=== PATIENT | male | born 1940 | race Caucasian/White ===

== ENCOUNTER → 2018-04-16 11:32 | Outpatient (CLI) | payer MEDICARE, BC, SELFPAY ==
--- NOTE | 2018-04-16 12:17 | NM_ITS ---
History and Indications: Hypertension, shortness of breath, palpitations, syncope, fatigue and abnormal EKG. Procedure: Patient exercised on Nayan protocol 7 minutes and 16 seconds, resting heart rate was 48 beats prominent resting blood pressure 155/77, with exercise maximum heart rate achieved was 1 22 bpm which is greater than 85% of the maximum] heart rate and a blood pressure was 186/65. Test was started due to shortness of breath, patient has good exercise capacity achieved 10.1METS of workload on treadmill, the blood pressure response to exercise was adequate. Electrocardiogram: Resting electrocardiogram showed atrial flutter, with exercise less than 1.[address] segment depression noted from the baseline EKG. The EKG portion of the exercise Myoview is nondiagnostic secondary to baseline abnormal EKG. Cardiac stress and resting SPECT images: Cardiac stress and resting SPECT images were obtained using technetium 99 Myoview 31.0 mCi at stress and 10.6 mCi at rest. Gated SPECT further analysis of segmental wall motion and calculation of the ejection fraction also done. Cardiac stress and resting SPECT images show a fixed defect involving the inferior and posterobasal wall, with normal contractility in the gated SPECT is likely secondary to soft tissue attenuation, no reversible ischemia seen. Computer derived ejection fraction is 53% with no regional wall motion abnormality. Right ventricle is normal size and contractility. Conclusion: 1. The EKG portion of the exercise Myoview is nondiagnostic, patient has good exercise capacity achieved 10.1 mets of workload on treadmill, the blood pressure response to exercise was adequate. Test was started due to shortness of breath patient denied any complained of chest pain. 2. No obvious scintigraphic evidence of reversible ischemia seen, computer derived ejection fraction 53% with no regional wall motion abnormality, right ventricle is normal size and contractility.
== END ==
PROVIDERS: PCP Internal Medicine; Visit Provider Internal Medicine
DX: R06.02 Shortness of breath (principal); R94.31 Abnormal electrocardiogram [ECG] [EKG]; R00.1 Bradycardia, unspecified; I10 Essential (primary) hypertension; I48.92 Unspecified atrial flutter; Z87.891 Personal history of nicotine dependence
CPT/HCPCS: 78452; 93017; A9502

== ENCOUNTER → 2018-05-05 12:28 | Outpatient (CLI) | payer MEDICARE, BC, SELFPAY ==
[2018-05-05 13:29] LABS: Anion Gap 14.4 mEq/L (5-15); Blood Urea Nitrogen 26 mg/dL (7-18); Carbon Dioxide 26 mmol/L (21.0-32.0); Chloride 106 mmol/L (98-107); Creatinine,Serum 1.34 mg/dL (0.70-1.30); Estimated Glomerular Filt Rate 52 ml/min (>60); GFR (African American) 62 ML/MIN (>60); Glucose 96 mg/dL (74-106); Potassium 4.4 mmoL/L (3.5-5.1); Sodium 142 mmol/L (136-145)
== END ==
PROVIDERS: PCP Nurse Practitioner Family; Visit Provider Physician Assistant
DX: I10 Essential (primary) hypertension (principal); I25.10 Atherosclerotic heart disease of native coronary artery without angina pectoris; I48.4 Atypical atrial flutter; R00.1 Bradycardia, unspecified; R06.02 Shortness of breath; R42 Dizziness and giddiness; R53.83 Other fatigue; Z87.891 Personal history of nicotine dependence
CPT/HCPCS: 36415; 80048

== ENCOUNTER 2018-05-05 13:07 | Outpatient (RCR) | payer MEDICARE, BC, SELFPAY | END 2018-06-17 10:19 | disposition home or self-care (01) | LOC: PT 13:07 | PROVIDERS: PCP Nurse Practitioner Family; Visit Provider Internal Medicine | DX: Z95.5 Presence of coronary angioplasty implant and graft (principal) | CPT/HCPCS: 93798 ==

== ENCOUNTER 2018-05-26 09:47 | Day surgery (SDC) | payer MEDICARE, BC, SELFPAY ==
[2018-05-26] VITALS (7 sets, daily range): BP systolic 111–129; BP diastolic 68–83; PULSE 57–76; RESP 16–18; O2SAT 92–96; BMI 30.8
--- NOTE | 2018-05-26 10:48 | SUR.OPER ---
synchronized cardioversion completed at 1045, shocked one time at 50J, pt in nsr per telemetry with rate of 78 at this time
== END 2018-05-26 12:00 | disposition home or self-care (01) ==
LOC: CATHLAB 09:49
PROVIDERS: PCP Nurse Practitioner Family; Visit Provider Internal Medicine
PROC: 5A2204Z Restoration of Cardiac Rhythm, Single (ICD-10-PCS; principal; 2018-05-26 10:00)
DX: I48.92 Unspecified atrial flutter (principal)
CPT/HCPCS: 92960

== ENCOUNTER → 2018-12-09 07:05 | Outpatient (CLI) | payer MEDICARE, BC, SELFPAY ==
--- NOTE | 2018-12-09 07:08 | NM_ITS ---
CARDIOLITE SPECT MYOCARDIAL PERFUSION LEXISCAN, REST AND STRESS: [facility] REVIEW QGS EF AND WALL MOTION EVALUATION: QPS - PERFUSION EVALUATION HISTORY: CAD, SOB DOSE: 10.55 mCi technetium 99m mibi intravenously at rest followed by 30.2 mCi technetium 99m mibi following the intravenous ministration of 0.4 mg of Lexiscan. Resting blood pressure is 122/65. Stress blood pressure 111/55. FINDINGS: Ejection fraction is calculated to be 63. Stress images reveal mildly decreased activity in the anterior wall with severely reduced activity in the inferior apical wall. Rest images reveal uniform myocardial activity IMPRESSION: High risk abnormal stress test with large amount of inferior apical reversible ischemia in a mild degree of anterior wall ischemia. 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
--- NOTE | 2018-12-09 08:05 | HMH.ITSHM ---
Current Home Medications as stated by this patient Juan M Burgess or outside industrial sales representative. []ALFUZOSIN AMLODIPINE ASA ATORVASTATIN CLOPIDOGREL ELIQUIS FINASTERIDE FUROSEMIDE MULTIVITAMIN LISINOPRIL MONTELUKAST OMEGA 3 OMEPRAZOLE SPIRONOLACTONE TESTOSTERONE
== END ==
PROVIDERS: PCP Nurse Practitioner Family; Visit Provider Urology
DX: E78.5 Hyperlipidemia, unspecified (principal); I10 Essential (primary) hypertension; I25.10 Atherosclerotic heart disease of native coronary artery without angina pectoris; R06.02 Shortness of breath; R53.83 Other fatigue; I48.92 Unspecified atrial flutter; R00.1 Bradycardia, unspecified; Z87.891 Personal history of nicotine dependence
CPT/HCPCS: 78452; 93017; A9502; J2785

== ENCOUNTER → 2018-12-31 07:39 | Outpatient (CLI) | payer MEDICARE, BC, SELFPAY ==
--- NOTE | 2018-12-31 07:41 | CT_ITS ---
CT chest wo con HISTORY: ITS.REASON: dyspnea ORDERING PHYSICIAN: Eugenie Cheek APRN PATIENT AGE: 78 years COMPARISON: None Technique: Axial images obtained. Sagittal, and coronal reformatted images are also generated and reviewed. All CT scans at the facility use one or more dose reduction, viz: automated exposure control, ma/kV adjustment per patient size (including targeted exams where dose is matched to indication, i.e. head), or iterative reconstruction technique. FINDINGS: There is a moderate degree of coronary artery calcification noted. Normal heart size. Aortic valve calcification also noted. No pericardial effusion. Small hiatal hernia. No mediastinal or hilar mass. There are scattered small mediastinal lymph nodes.. There are mild atelectatic or fibrotic changes in the right middle lobe and lingula. Calcified granuloma is present in the left lower lobe. No central obstructing lesions. No suspicious pulmonary nodules. There is a 13 mm isodensity in the right hepatic lobe posteriorly at the dome of the liver which may represent a cyst. No acute bony anomalies. There are small subcutaneous nodules along the right chest wall anteriorly. IMPRESSION: 1. No acute finding. 2. Coronary artery and aortic valve calcification. 3. Small hiatal hernia. 4. Other nonacute findings as described above
== END ==
PROVIDERS: PCP Nurse Practitioner Family; Visit Provider Urology
DX: E78.49 Other hyperlipidemia (principal); I10 Essential (primary) hypertension; I25.10 Atherosclerotic heart disease of native coronary artery without angina pectoris; I48.92 Unspecified atrial flutter; R06.02 Shortness of breath; R42 Dizziness and giddiness; Z87.891 Personal history of nicotine dependence
CPT/HCPCS: 71250

== ENCOUNTER → 2019-01-06 13:00 | Outpatient (CLI) | payer MEDICARE, BC, SELFPAY ==
[2019-01-06 15:44] LABS: Anion Gap 15.9 mEq/L (5-15); Blood Urea Nitrogen 29 mg/dL (7-18); Calcium 8.9 mg/dL (8.5-10.1); Carbon Dioxide 23 mmol/L (21.0-32.0); Chloride 105 mmol/L (98-107); Creatinine,Serum 1.29 mg/dL (0.70-1.30); Estimated Glomerular Filt Rate 54 ml/min (>60); GFR (African American) 65 ML/MIN (>60); Glucose 130 mg/dL (74-106); Potassium 4.9 mmoL/L (3.5-5.1); Sodium 139 mmol/L (136-145)
== END ==
PROVIDERS: Visit Provider Urology
DX: R06.02 Shortness of breath (principal); R53.83 Other fatigue
CPT/HCPCS: 36415; 80048

== ENCOUNTER → 2019-01-25 12:41 | Outpatient (CLI) | payer MEDICARE, BC, SELFPAY ==
[2019-01-25 14:42] LABS: Anion Gap 16.7 mEq/L (5-15); Blood Urea Nitrogen 24 mg/dL (7-18); Calcium 9.3 mg/dL (8.5-10.1); Carbon Dioxide 23 mmol/L (21.0-32.0); Chloride 106 mmol/L (98-107); Creatinine,Serum 1.29 mg/dL (0.70-1.30); Estimated Glomerular Filt Rate 54 ml/min (>60); GFR (African American) 65 ML/MIN (>60); Glucose 147 mg/dL (74-106); Potassium 4.7 mmoL/L (3.5-5.1); Sodium 141 mmol/L (136-145)
== END ==
PROVIDERS: PCP Nurse Practitioner Family; Visit Provider Urology
DX: I10 Essential (primary) hypertension (principal); I25.10 Atherosclerotic heart disease of native coronary artery without angina pectoris; R06.02 Shortness of breath; G47.33 Obstructive sleep apnea (adult) (pediatric); R40.0 Somnolence; R53.83 Other fatigue
CPT/HCPCS: 36415; 80048; G0399

== ENCOUNTER → 2019-04-07 12:13 | Outpatient (CLI) | payer MEDICARE, BC, SELFPAY ==
--- NOTE | 2019-04-07 12:24 | XR_ITS ---
PROCEDURE: XR TIBIA FIBULA LT 2V CLINICAL INDICATION: injury Posttraumatic pain COMPARISON: No exams were available for comparison FINDINGS: Prior total knee replacement without evidence of orthopedic complication. The mid distal aspect of the tib fib have an unremarkable appearance. IMPRESSION: Status post total knee replacement Dictated by: Srikanth Brandon MD 04/08/2019 11:42 Electronically signed by Srikanth Brandon MD in [place] 04/08/2019 11:42
[2019-04-07 12:37] LABS: Basophils % 0.5 % (0.1-2.0); Eosinophils # 0.1 K/mm3 (0.0-0.4); Eosinophils % 1.7 % (0.1-12.0); Hematocrit 35.3 % (42.0-52.0); Hemoglobin 11.3 g/dL (14.1-18.0); Lymphocytes # 2.9 K/mm3 (0.7-4.5); Lymphocytes % 36.5 % (10-50); Mean Corpuscular Hemoglobin 30.9 pg (27.0-31.2); Mean Corpuscular Volume 96.6 fl (80-94); Mean Platelet Volume 6.9 fl (7.4-10.4); Monocytes # 0.4 K/mm3 (0.1-1.0); Monocytes % 4.9 % (1.7-9.3); Neutrophils # 4.4 K/mm3 (1.8-7.8); Neutrophils % 56.5 % (37.0-80.0); Platelet Count 219 K/mm3 (142-424); Red Blood Count 3.66 M/mm3 (4.60-6.20); Red Cell Distribution Width 15.1 % (11.5-17.5); White Blood Count 7.8 K/mm3 (4.8-10.8)
[2019-04-07 14:22] LABS: Alanine Aminotransferase 59 U/L (12-78); Albumin Level 3.9 gm/dL (3.4-5.0); Alkaline Phosphatase 55 U/L (46-116); Anion Gap 16.4 mEq/L (5-15); Aspartate Amino Transferase 14 U/L (15-37); Bilirubin,Direct 0.2 mg/dL (0.0-0.2); Bilirubin,Indirect 0.5 mg/dL (0.0-0.9); Bilirubin,Total 0.7 mg/dL (0.2-1.0); Blood Urea Nitrogen 25 mg/dL (7-18); Carbon Dioxide 21 mmol/L (21.0-32.0); Chloride 109 mmol/L (98-107); Cholesterol 105 mg/dL (140-200); Creatinine,Serum 1.16 mg/dL (0.70-1.30); Estimated Glomerular Filt Rate 61 ml/min (>60); GFR (African American) 73 ML/MIN (>60); Glucose 105 mg/dL (74-106); HDL Cholesterol 53 mg/dL (27-67); LDL Cholesterol 36 mg/dL (0-130); Potassium 4.4 mmoL/L (3.5-5.1); Sodium 142 mmol/L (136-145); Total Protein,Serum 6.8 gm/dL (6.4-8.2); Triglycerides 82 mg/dL (30-200); VLDL Cholesterol 16 mg/dL (0-40)
== END ==
PROVIDERS: Visit Provider Urology
DX: I10 Essential (primary) hypertension (principal); I25.10 Atherosclerotic heart disease of native coronary artery without angina pectoris; R06.02 Shortness of breath; R42 Dizziness and giddiness; I48.0 Paroxysmal atrial fibrillation; S89.92XA Unspecified injury of left lower leg, initial encounter
CPT/HCPCS: 36415; 73590; 80048; 80061; 80076; 83880; 85025

== ENCOUNTER → 2019-04-13 11:01 | Outpatient (CLI) | payer MEDICARE, BC, SELFPAY ==
[2019-04-13 11:45] VITALS: PULSE 77; PULSE 80
== END ==
PROVIDERS: PCP Nurse Practitioner Family; Visit Provider Urology
DX: R06.02 Shortness of breath (principal); R42 Dizziness and giddiness; I25.10 Atherosclerotic heart disease of native coronary artery without angina pectoris
CPT/HCPCS: 94060; 94640

== ENCOUNTER → 2019-04-20 08:44 | Outpatient (POV) | payer MEDICARE, BC, SELFPAY | PROVIDERS: Visit Provider Dermatology | DX: Z00.00 Encounter for general adult medical examination without abnormal findings (principal) ==

== ENCOUNTER → 2019-04-27 14:20 | Outpatient (CLI) | payer MEDICARE, BC, SELFPAY | PROVIDERS: PCP Nurse Practitioner Family; Visit Provider Urology | DX: I48.92 Unspecified atrial flutter (principal) | CPT/HCPCS: 93270 ==

== ENCOUNTER → 2020-01-07 09:18 | Outpatient (CLI) | payer MEDICARE, BC, SELFPAY ==
--- NOTE | 2020-01-07 | CA_ITS ---
APPROVED REPORT EXAM: Comprehensive 2D, Doppler, and color-flow Echocardiogram Nurse Informatics Educator: Radha Serrano RT(R) Ht: 5 ft 6 in Wt: 216lbs BSA: 2.07 BP: 144/64 mmHg Indications: HTN, SOB, PAF, CAD, GERD 2D Dimensions LVOT 2.08 cm (M/F) 1.5-2.5 M-Mode Dimensions RVDd 1.78 cm (0.9-2.6) LVDd 4.43 cm (3.5-5.7) LVDs 3.05 cm (3.5-5.7) IVSd 0.80 cm (0.6-1.1) PWd 0.87 cm (0.6-1.1) EF (Teich) 59.10% FS 31.20% EDV (Teich) 89.10 mL ESV (Teich) 36.40 mL LV Diastology E/A Ratio 0.65 Aortic Valve LVOT Max 109.00 (70-110 cm/s) LVOT VTI 28.22 cm Mitral Valve MV A Velocity 99.00 (40-130 cm/s) Left Ventricle Left atrium is mildly enlarged, left ventricle is normal size, mild concentric left ventricular hypertrophy, visually estimated ejection fraction 55% with no regional wall motion abnormality, grade 1 diastolic dysfunction seen without tissue Doppler evidence of raise left atrial pressure. Right Ventricle Right atrium and right ventricle are normal size and contractility. Aortic Valve Aortic valve is minimally thickened and fibrosed, there is no aortic stenosis, there is trace aortic insufficiency. Mitral Valve Mitral valve leaflets are minimally thickened, there is no mitral stenosis, there is mild mitral regurgitation. Tricuspid Valve Tricuspid valve is minimally thickened, there is no tricuspid stenosis, there is mild tricuspid regurgitation, tricuspid regurgitation jet velocity is inadequate for calculation of the right ventricular systolic pressure. Pulmonic Valve Pulmonic valve is poorly visualized. Great Vessels Aortic root is normal size. Pericardium No significant pericardial effusion noted. Conclusion 1. Mildly enlarged left atrium, normal left ventricular size, mild concentric left ventricular hypertrophy, visually estimated ejection fraction 55% with no regional wall motion abnormality, grade 1 diastolic dysfunction seen without tissue Doppler evidence of raise left atrial pressure. 2. Thickened and calcified aortic valve without aortic stenosis, there is trace aortic insufficiency. 3. Mild mitral and tricuspid regurgitation. 4. No significant pericardial effusion noted. Electronically signed by : Emerson Card, 01/07/2020 11:13:35
== END ==
PROVIDERS: PCP Nurse Practitioner Family; Visit Provider Urology
DX: I25.10 Atherosclerotic heart disease of native coronary artery without angina pectoris (principal)
CPT/HCPCS: 93306

== ENCOUNTER → 2020-05-17 11:03 | Outpatient (CLI) | payer MEDICARE, BC, SELFPAY ==
[2020-05-17 13:04] LABS: Blood Urea Nitrogen 17 mg/dl (9-20); Estimated Glomerular Filt Rate 72 ml/min (>60); GFR (African American) 87 ML/MIN (>60)
== END ==
PROVIDERS: PCP Nurse Practitioner Family; Visit Provider Internal Medicine Gastroenterology
DX: Z01.818 Encounter for other preprocedural examination (principal); R11.2 Nausea with vomiting, unspecified
CPT/HCPCS: 36415; 82565; 84520

== ENCOUNTER → 2020-05-19 12:35 | Outpatient (CLI) | payer MEDICARE, BC, SELFPAY ==
--- NOTE | 2020-05-19 12:44 | CT_ITS ---
PROCEDURE: CT ABDOMEN WO/W CON CLINICAL HISTORY: NAUSEA W/O VOMITING nausea vomiting x 1.5 years att pancreas COMPARISON: No exams were available for comparison TECHNIQUE: Axial images obtained with sagittal and coronal reformats. All CT scans at the facility use one or more dose reduction, viz: automated exposure control, ma/kV adjustment per patient size (including targeted exams where dose is matched to indication, i.e. head), or iterative reconstruction technique. FINDINGS: IMPRESSION: Dictated by: Srikanth Brandon MD 05/19/2020 21:46 Srikanth Brandon MD in [place] 05/20/2020 08:56
== END ==
PROVIDERS: PCP Nurse Practitioner Family; Visit Provider Internal Medicine Gastroenterology
DX: R11.0 Nausea (principal)
CPT/HCPCS: 74170; Q9967

== ENCOUNTER → 2020-05-22 09:59 | Outpatient (CLI) | payer MEDICARE, BC, SELFPAY ==
[2020-05-22 10:32] LABS: Basophils % 0.4 % (0.1-2.0); Eosinophils # 0.2 K/mm3 (0.0-0.4); Eosinophils % 2.1 % (0.1-12.0); Hematocrit 40.4 % (42.0-52.0); Hemoglobin 12.9 g/dL (14.1-18.0); Lymphocytes # 2.1 K/mm3 (0.7-4.5); Lymphocytes % 26.8 % (10-50); Mean Corpuscular HGB Conc 31.8 g/dL (31.8-35.4); Mean Corpuscular Volume 91.2 fl (80-94); Monocytes # 0.5 K/mm3 (0.1-1.0); Monocytes % 6.2 % (1.7-9.3); Neutrophils # 5.1 K/mm3 (1.8-7.8); Neutrophils % 64.5 % (37.0-80.0); Platelet Count 189 K/mm3 (142-424); Red Blood Count 4.44 M/mm3 (4.60-6.20); Red Cell Distribution Width 14.7 % (11.5-17.5); White Blood Count 7.8 K/mm3 (4.8-10.8)
[2020-05-22 10:58] LABS: Alanine Aminotransferase 23 U/L (12-78); Albumin Level 3.9 g/dl (3.5-5.0); Alkaline Phosphatase 78 U/L (38-126); Anion Gap 12.6 mEq/L (5-15); Aspartate Amino Transferase 22 U/L (17-59); Bilirubin,Indirect 0.5 mg/dL (0.0-0.9); Bilirubin,Total 0.5 mg/dl (0.2-1.3); Bilirubin,Unconjugated 0.5 mg/dL (0.0-1.1); Blood Urea Nitrogen 19 mg/dl (9-20); Calcium 9.5 mg/dl (8.4-10.2); Carbon Dioxide 23 mmol/L (22.0-30.0); Chloride 108 mmol/L (98-107); Chol/HDL Ratio 1.8 (1-3.5); Cholesterol 99 mg/dl (140-200); Estimated Glomerular Filt Rate 72 ml/min (>60); GFR (African American) 87 ML/MIN (>60); Glucose 142 mg/dl (74-100); HDL Cholesterol 55 mg/dl (40-60); Potassium 3.6 mmoL/L (3.5-5.1); Sodium 140 mmol/L (136-145); Total Protein,Serum 6.4 g/dl (6.3-8.2); Triglycerides 103 mg/dl (30-150); VLDL Cholesterol 21 mg/dL (0-40)
[2020-05-22 11:08] LABS: Direct LDL Cholesterol 40.29 mg/dL (100-129)
[2020-05-22 11:13] LABS: Free T4 (Free Thyroxine) 0.82 ng/dl (0.78-2.19)
[2020-05-22 11:27] LABS: Thyroid Stimulating Hormone 1.05 uIU/mL (0.465-4.68)
== END ==
PROVIDERS: Visit Provider Urology
DX: E78.5 Hyperlipidemia, unspecified (principal); I10 Essential (primary) hypertension; I25.10 Atherosclerotic heart disease of native coronary artery without angina pectoris; I48.91 Unspecified atrial fibrillation; R06.02 Shortness of breath; Z79.01 Long term (current) use of anticoagulants
CPT/HCPCS: 36415; 80048; 80061; 80076; 84439; 84443; 85025

== ENCOUNTER → 2020-05-23 09:43 | Outpatient (CLI) | payer MEDICARE, BC, SELFPAY ==
--- NOTE | 2020-05-23 09:53 | NM_ITS ---
PROCEDURE: NM GASTRIC EMPTYING STUDY CLINICAL INDICATION: NAUSEA WITHOUT VOMITING COMPARISON: No exams were available for comparison TECHNIQUE: Dose 0.53 mCi technetium sulfur colloid mixed in radial labeled meal. FINDINGS: The 1/2 emptying time is 44 minutes. This is within normal limits. Images submitted show no obvious reflux. 99 percent gastric contents had emptied at 239 minutes. IMPRESSION: Normal gastric emptying time Dictated by: Srikanth Brandon MD 05/23/2020 15:15 Srikanth Brandon MD in [place] 05/23/2020 15:15
--- NOTE | 2020-05-23 11:10 | HMH.ITSHM ---
Current Home Medications as stated by this patient Juan M Burgess or practice representative. []omeprazole MONTELUKAST FUROSEMIDE VITAMIN D2 ATORVASTATIN ASA AMLODIPINE ALFUZOSIN APIXABAN
--- NOTE | 2020-05-23 11:11 | CA_ITS ---
APPROVED REPORT Right Lower Extremity Venous Study for DVT. Associate Property Manager: JENNI RossT Indications Lower Extremity Pain: Right recent fall and hematoma right lower ext Medications Pt on Eliqus Vein Imaging CFV (R): compressive, spontaneous, phasic, augmentation FEM (R): compressive, spontaneous, phasic, augmentation POP (R): compressive, spontaneous, phasic, augmentation PTV (R): Compressible GSV (R): Compressible Peroneals (R):Compressible GAS (R): Compressible Findings Study suggests no evidence of DVT of the right lower extremity. Study suggests no evidence of SVT of the right lower extremity. 4.1 cm hematoma seen right proximal mid calf. Conclusion Study suggests no evidence of DVT of the right lower extremity. Study suggests no evidence of SVT of the right lower extremity. 4.1 cm hematoma seen right proximal mid calf. Electronically signed by : Srikanth Brandon MD 05/23/2020 15:37:51
== END ==
PROVIDERS: PCP Nurse Practitioner Family; Visit Provider Internal Medicine Gastroenterology
DX: E78.5 Hyperlipidemia, unspecified (principal); I10 Essential (primary) hypertension; I25.10 Atherosclerotic heart disease of native coronary artery without angina pectoris; I48.91 Unspecified atrial fibrillation; M79.604 Pain in right leg; R06.02 Shortness of breath; Z79.01 Long term (current) use of anticoagulants; R11.0 Nausea
CPT/HCPCS: 78264; 93971; A9541

== ENCOUNTER 2020-06-04 09:45 | Inpatient (IN) | payer MEDICARE, BC, SELFPAY ==
[2020-06-04] VITALS (9 sets, daily range): BP systolic 107–132; BP diastolic 56–87; PULSE 53–87; RESP 17–22; TEMP 36.7–37.6; O2SAT 92–95; BMI 32.1; BMI 30.6
--- NOTE | 2020-06-04 10:01 | XR_ITS ---
PROCEDURE: XR CHEST 2V CLINICAL HISTORY: soa COMPARISON: CT CHESTWO CT chest wo con from 12/31/2018 FINDINGS: Aligned. The lung anglin are fairly well expanded revealing a patchy ill-defined pneumonic infiltrate left lower lobe primarily posterior basilar segment. The left upper lung field and right lung anglin are clear. There is no pleural fluid. IMPRESSION: Left lower lobe pneumonia Dictated by: Dr. Cm Van MD 06/04/2020 12:26 Dr. Cm Van MD in [place] 06/04/2020 12:26
--- NOTE | 2020-06-04 10:06 | HMH.EDGENADL ---
ED Disposition Clinical Impression: Shortness of breath Disposition: Admitted As Inpatient Condition on Discharge: Serious Referrals: Sarahi Fitzgerald MD [Primary Care Provider] - - Critical Care Critical Care Time: No Attestation: On 06/04/20, the high probability of a clinically significant, sudden or life threatening deterioration of the following system(s) required my full and direct attention, intervention and personal management. The time I documented below is in addition to time spent performing reported procedures but includes the following listed in this critical care notation. Medical Decision Making - Medical Records Medical records reviewed: Yes: I reviewed the patient's medical records. - [place] Inquiry Pt receiving controlled substance: No Vital Signs: 06/04/20 09:47 06/04/20 10:45 Temperature 98.3 F Temperature Source Oral Pulse Rate [Right] 58 L 58 L Respiratory Rate 21 Blood Pressure [Right Arm] 107/58 L 119/62 Blood Pressure Mean [Right Arm] 74 81 Blood Pressure Source [Right Arm] Automatic Cuff Blood Pressure Position [Right Arm] Sitting 02 Sat by Pulse Oximetry 95 95 Oxygen Delivery Method Room Air - Lab Data Lab Results 06/04/20 10:00: WBC 9.6, RBC 4.62, Hgb 14.0 L, Hct 42.9, MCV 92.7, MCH 30.3, MCHC 32.7, RDW 14.8, Plt Count 165, MPV 7.9, Neut % (Auto) 81.1 H, Lymph % (Auto) 16.4, [facility] % (Auto) 2.2, Eos % (Auto) 0.0 L, Baso % (Auto) 0.2, Neut # (Auto) 7.8, Lymph # (Auto) 1.6, [facility] # (Auto) 0.2, Eos # (Auto) 0.0, Baso # (Auto) 0.0 06/04/20 10:00: Sodium 138, Potassium 4.1, Chloride 103, Carbon Dioxide 22, Anion Gap 17.1 H, BUN 29 H, Creatinine 1.40 H, Estimated Creat Clear 55, Estimated GFR 49 L, Est GFR ( Amer) 59, Glucose 139 H, Calcium 9.2, Total Bilirubin 1.0, AST 53, ALT 51, Alkaline Phosphatase 72, Troponin I 0.02, Total Protein 7.8, Albumin 4.2, Globulin 3.6 H, Albumin/Globulin Ratio 1.2, Amylase 59, Lipase 86 06/04/20 10:00: SARS-CoV-2 IgG Ab (Rapid) Positive A, SARS-CoV-2 IgM Ab (Rapid) Negative 06/04/20 10:00: Magnesium 2.3 06/04/20 10:00: NT-Pro-B Natriuret Pep 490 H 06/04/20 10:20: Blood Type A Positive, Antibody Screen Negative Result diagrams: 06/04/20 10:00 06/04/20 10:00 Orders (Tests/Meds): ED MEDICATIONS Generic Name Dose Route Start Last Admin Trade Name Freodessa PRN Reason Stop Dose Admin Lactated Ringer's 1,000 mls @ 999 mls/hr 06/04/20 10:15 06/04/20 10:08 Lactated Ringer's 1000 Ml Bag IV 06/04/20 11:15 999 mls/hr .Q1H1M JEANETTE Administration ORDERS Category Date Time Status XR chest 2V Stat Exams 06/04/20 10:01 Taken Troponin I Q3H Lab 06/04/20 13:15 Ordered Troponin I Q3H Lab 06/04/20 16:15 Ordered UA [Urinalysis and Microscopic] Stat Lab 06/04/20 10:02 Ordered Medical Decision Narrative: The patient is an 79 year old male who presents with shortness of breath, weakness and vomiting for the last week. On arrival he is awake and alert. He is hemodynamically stable with HR in the 60s and BP in the 100/60s. He speaks in full sentences but appears short of breath. Lungs are clear. Abdomen is benign. Labs including CBC, CMP, lipase, troponin, UA were obtained. CXR was obtained. Labwork unremarkable He was tested for COVID-19. IgG was positive on rapid serology but IgM was negative. PCR swab was obtained. Due to patients continued increased work of breathing at rest Dr. Balbuena was consulted for admission who agreed. Patient was satting 94% on room air at this time. General Adult HPI - General Chief complaint: Shortness of Breath/Dyspnea Stated complaint: short of air, vomiting Time Seen by Provider: 06/04/20 09:47 Mode of Arrival: Ambulatory Limitations: No Limitations Description of Symptoms (Recalled from ER Triage Doc. by RN): Pt states for a week he has had vomiting and soa. Pt went to his family dr on friday and tested him for covid but did not dx him with anything. Pt continues to vomit and have soa. - History of Prese
[2020-06-04 10:11] LABS: Chloride 103 mmol/L (98-107); Sodium 138 mmol/L (136-145)
[2020-06-04 10:12] LABS: Potassium 4.1 mmoL/L (3.5-5.1)
[2020-06-04 10:14] LABS: Alanine Aminotransferase 51 U/L (12-78); Alkaline Phosphatase 72 U/L (38-126); Amylase 59 U/L (30-110); Anion Gap 17.1 mEq/L (5-15); Aspartate Amino Transferase 53 U/L (17-59); Blood Urea Nitrogen 29 mg/dl (9-20); Carbon Dioxide 22 mmol/L (22.0-30.0); Creatinine Clearance Estimated 55 mL/min (50-200); Estimated Glomerular Filt Rate 49 ml/min (>60); GFR (African American) 59 ML/MIN (>60)
[2020-06-04 10:15] LABS: Albumin Level 4.2 g/dl (3.5-5.0); Albumin/Globulin Ratio 1.2 (1.1-1.8); Calcium 9.2 mg/dl (8.4-10.2); Globulin 3.6 g/dL (1.3-3.2); Glucose 139 mg/dl (74-100); Lipase 86 U/L (23-300); Magnesium 2.3 mg/dl (1.6-2.3); Total Protein,Serum 7.8 g/dl (6.3-8.2)
[2020-06-04 10:17] LABS: Basophils % 0.2 % (0.1-2.0); Hematocrit 42.9 % (42.0-52.0); Lymphocytes # 1.6 K/mm3 (0.7-4.5); Lymphocytes % 16.4 % (10-50); Mean Corpuscular HGB Conc 32.7 g/dL (31.8-35.4); Mean Corpuscular Hemoglobin 30.3 pg (27.0-31.2); Mean Corpuscular Volume 92.7 fl (80-94); Mean Platelet Volume 7.9 fl (7.4-10.4); Monocytes # 0.2 K/mm3 (0.1-1.0); Monocytes % 2.2 % (1.7-9.3); Neutrophils # 7.8 K/mm3 (1.8-7.8); Neutrophils % 81.1 % (37.0-80.0); Platelet Count 165 K/mm3 (142-424); Red Blood Count 4.62 M/mm3 (4.60-6.20); Red Cell Distribution Width 14.8 % (11.5-17.5); White Blood Count 9.6 K/mm3 (4.8-10.8)
--- NOTE | 2020-06-04 10:20 | PC.NURSE ---
Lab at bedside
[2020-06-04 10:24] LABS: NT Pro Brain Natriuretic Pep. 490 pg/mL (0-450)
[2020-06-04 10:27] LABS: Troponin I 0.02 ng/ml (0.00-0.034)
--- NOTE | 2020-06-04 10:31 | PC.NURSE ---
Pt to rad.
--- NOTE | 2020-06-04 10:33 | PC.NURSE ---
Pt returned from rad.
[2020-06-04 10:41] LABS: Coronavirus 19 IgM Antibody Negative (Negative)
[2020-06-04 10:42] LABS: Coronavirus 19 IgG Antibody Positive (Negative)
--- NOTE | 2020-06-04 10:51 | PC.NURSE ---
paging service doc at this time.
--- NOTE | 2020-06-04 10:53 | PC.NURSE ---
Dr Balbuena returned call.
--- NOTE | 2020-06-04 10:59 | ECG_ITS ---
APPROVED REPORT Exam: Resting ECG HR:64 bpm ECG Measurements Heart Rate 64 AXES IL 184 P 57 QRSd 98 QRS 63 QT 404 T 63 QTc 416 Conclusion Normal sinus rhythm Normal ECG Electronically signed by : Lasha Valdez, 06/06/2020 14:48:55
--- NOTE | 2020-06-04 11:02 | PC.NURSE ---
Awaiting covid results before transportation, pt aware of POC, ice chips and warm blanket given, meal tray offered pt denied. Call terrell mendez.
[2020-06-04 12:32] LABS: Adenovirus,PCR Not Detected (NotDetected); Bordetella Pertussis Not Detected (NotDetected); Chlamydophila Pneumoniae, PCR Not Detected (NotDetected); Coronavirus 19, PCR Detected (NotDetected); Coronavirus 229E Not Detected (NotDetected); Coronavirus NL63 Not Detected (NotDetected); Coronavirus OC43 Not Detected (NotDetected); Coronovirus HKU1,PCR Not Detected (NotDetected); Human Metapneumovirus Not Detected (NotDetected); Influenza A, PCR Not Detected (NotDetected); Influenza AH1, 2009 Not Detected (NotDetected); Influenza AH1, PCR Not Detected (NotDetected); Influenza AH3,PCR Not Detected (NotDetected); Influenza B, PCR Not Detected (NotDetected); Mycoplasma Pneumoniae, PCR Not Detected (NotDetected); Parainfluenza 1, PCR Not Detected (NotDetected); Parainfluenza 2, PCR Not Detected (NotDetected); Parainfluenza 3, PCR Not Detected (NotDetected); Parainfluenza 4, PCR Not Detected (NotDetected); Respiratory Syncytial Virus Not Detected (NotDetected); Rhinovirus/Enterovirus Not Detected (NotDetected)
--- NOTE | 2020-06-04 12:34 | PC.NURSE ---
Sheeba from lab called and gave covid results to Rebeca Rebollar RN
--- NOTE | 2020-06-04 13:20 | PC.NURSE ---
Attempted to call report at this time and stated RN was not ready to have the patient transported just yet because they are arranging beds for this covid admission
--- NOTE | 2020-06-04 16:07 | PC.ADMIT ---
Admission Note: The patient,Juan M Burgess,79 y/o, was given written information regarding hospital policies, unit procedures and contact persons. Pt is alert and oriented x4. Admitted w/ SOA, pneumonia, covid-19 positive. Pt reports having symptoms of NVD, SOA and weakness for almost over one week w/ increased SOA today bringing him to ED. Pt remains on room air w/ sats > 90%. Pt remains on cont pulse ox per MD orders. Incentive spirometer at bedside. Reviewed proper use and need for use while pt is awake during the day. Pt verbalized understanding and demonstrated use. IS @ best = 1999. Pt reports improvement of symptoms since arriving to hospital this AM. Lungs CTA. Abdomen soft,non-tender w/ active BS in all quads. 2 + pulses noted. Cap refiil <3 sec. Applications Developer equal w/ no noted weakness to extremities. Pt is CHIT[place]. Independent w/ ADL's. Reports poor appetite and that he has not been able to keep much down for the past week and that he has not been taking his home meds d/t this. Pt is very pleasant and cooperative w/ care. Call tejada w/in reach. No needs voiced. Admission folder reviewed w/ pt and left at bedside. #20 LAC w/ NS @ 100 mls/hr. Will continue to monitor. Patient's smoking status: Former smoker. Vital Signs - 8 hr 06/04/20 09:47 06/04/20 10:45 06/04/20 12:30 Temperature 98.3 F Pulse Rate Pulse Rate [Right] 58 L 58 L 58 L Respiratory Rate 21 Blood Pressure Blood Pressure [Right Arm] 107/58 L 119/62 110/57 L 02 Sat by Pulse Oximetry 95 95 94 L 06/04/20 13:13 06/04/20 13:37 06/04/20 14:07 Temperature 98.1 F Pulse Rate 87 Pulse Rate [Right] 62 60 Respiratory Rate 22 Blood Pressure 132/87 Blood Pressure [Right Arm] 114/63 126/64 02 Sat by Pulse Oximetry 94 L 95 06/04/20 14:10 06/04/20 15:54 Temperature 99.3 F 98.8 F Pulse Rate Pulse Rate [Right] 58 L 63 Respiratory Rate 22 22 Blood Pressure Blood Pressure [Right Arm] 124/60 112/56 L 02 Sat by Pulse Oximetry 93 L 93 L
--- NOTE | 2020-06-04 16:22 | HMH.HP ---
*Admission Date: 06/04/20 *Chief complaint: progressive dyspnea *History of present illness: per ER The patient is an 79 year old male who presents with shortness of breath, weakness and vomiting for the last week. On arrival he is awake and alert. He is hemodynamically stable with HR in the 60s and BP in the 100/60s. He speaks in full sentences but appears short of breath. Lungs are clear. Abdomen is benign. Labs including CBC, CMP, lipase, troponin, UA were obtained. CXR was obtained. Labwork unremarkable He was tested for COVID-19. IgG was positive on rapid serology but IgM was negative. PCR swab was obtained. Due to patients continued increased work of breathing at rest Dr. Balbuena was consulted for admission who agreed. Patient was satting 94% on room air at this time. Patient had been seen earlier for shortness of breath. He was worked up in cardiology for a DVT. His PCR is positive. He was taking less and less p.o., he began to feel immediately better after some IV fluid. His dyspnea is well modulated at rest, he is currently not requiring room air. He is having no chest pain. He is in no acute distress. We are starting remdesivir, dexamethasone, and Lovenox. [facility] History Medical History: Reports:: Atrial Fibrillation, Coronary Artery Disease, Gastroesophageal Reflux Disease(GERD), Hyperlipidemia, Hypertension Denies:: Cancer, Diabetes Mellitus Type 1, Diabetes Mellitus Type 2, Internal Pacemaker, Lung Disease, MRSA, Seizures *Have you ever received a pneumonia vaccine?: Yes *Have you received a flu vaccine this season?: Yes Other Medical History: Denies: Blood Transfusion Reaction Laterality Cases: Bilateral: Arthroscopy Knee Other Surgeries: Yes: Angiogram, Cardiac Catheterization, Cholecystectomy, Coronary Stent (x1). No: Pacemaker Amputation: No Fractures: No - *Social History Smoking Status: Former smoker Alcohol Intake: never Substance Use Type: denies use *Occupational Status:: retired Housing: house Household Members: spouse *Travel in the last 8 weeks: None Family Hx:: Heart Attack Review of Systems - Constitutional Reports anorexia, Reports fatigue, Reports lack of energy - Eyes Denies change in vision - ENT Reports abnormal hearing - *Cardiovascular Reports shortness of breath, Denies chest pain - *Respiratory Denies change in phlegm color - *Gastrointestinal Denies abdominal pain - *Genitourinary Denies difficulty urinating - *Musculoskeletal Reports muscle weakness - Integumentary/Breasts Denies yellowing of the skin - *Neurologic Denies abnormal speech, Denies behavioral changes, Denies unsteadiness - Psychiatric Denies depression - Endocrine Denies flushing, Denies increased hunger - Hematologic/Lymphatic Denies easy bleeding - Allergic/Immunologic Denies itchy eyes, Denies lip swelling, Denies hives Meds Home Medications Medication Instructions Recorded Confirmed Type alfuzosin 10 mg tablet,extended 10 mg PO DAILY 04/13/18 06/04/20 History release 24 hr amlodipine 10 mg tablet 10 mg PO DAILY 04/13/18 06/04/20 History ergocalciferol (vitamin D2) 1,250 50,000 unit PO QWEEK 04/13/18 06/04/20 History mcg (50,000 unit) capsule aspirin 81 mg tablet,delayed 81 mg PO DAILY 05/05/18 06/04/20 History release Apixaban [Eliquis] 5 mg PO BID 05/21/18 06/04/20 History montelukast 10 mg tablet 10 mg PO QPM PRN 12/01/18 06/04/20 History omeprazole 40 mg capsule,delayed 40 mg PO DAILY #60 cap 12/10/19 06/04/20 Rx release atorvastatin 40 mg tablet 40 mg PO DAILY #90 tab 02/15/20 06/04/20 Rx Escitalopram Oxalate 10 mg PO DAILY 06/04/20 06/04/20 History Finasteride [Proscar 5mg Tablet] 5 mg PO DAILY 06/04/20 06/04/20 History Furosemide [Furosemide 40MG tAB*] 40 mg PO BID 06/04/20 06/04/20 History Spironolactone 50 mg PO DAILY 06/04/20 06/04/20 History Allergies Allergy/AdvReac Type Severity Reaction Status Date / Time No Known Allergies Allergy Verified
--- NOTE | 2020-06-04 22:55 | PC.NURSE ---
patient sustaining o2 sats below 90%, o2 appled at 2 l nc. panel monitor also shows rate sustaining in the 40s and 50s.
[2020-06-05] VITALS (8 sets, daily range): BP systolic 108–128; BP diastolic 65–70; PULSE 45–68; RESP 14–20; TEMP 36.4–36.5; O2SAT 94–96; BMI 31.4
--- NOTE | 2020-06-05 01:39 | PC.NURSE ---
patient sats sustaining 90-95% on 2 l nc. patient is a mouth breather. continues to have drop in heart rate as low as 37 for brief moments.
--- NOTE | 2020-06-05 02:00 | PC.NURSE ---
patient has awoke drenched in sweat requiring linen changes twice this shift. highest temp noted was 99.6 at 2000. patient denies having body aches or chills.
--- NOTE | 2020-06-05 06:14 | PC.NURSE ---
Pt up to BR with staff SBA assist, and pt tolerated well. Total linen change for the 4th time this shift d/t sweating. Pt reports chills although oral temp WNL. Pt had a loose BM this am. HR has stayed low t/o shift, mostly mid 40's while resting in bed. Pt continues to use 2LPM via NC, SaO2 stays >90% while awake, and occasionally with drop to 85 then back up within seconds. Pt is open mouth breathing while asleep. IS completed while awake and pt reached 1500ml.
--- NOTE | 2020-06-05 08:07 | HMH.PHAVTE ---
[facility] Pharm[facility] VTE Monitoring - Patient Demographics Admission date: 06/04/20 Report Date: 06/05/20 Time: 08:08 Allergies/Adverse Reactions: Patient Allergies No Known Allergies Allergy (Verified 05/22/20 08:42) Height: 1.7 m Weight: 90.718 kg Patient Problems: Current Active Problems COVID-19 (Acute) Left lower lobe pneumonia (Acute) Anticoagulation adequate with anticoagulant therapy (Chronic) Atrial fibrillation (Chronic) CAD (coronary artery disease) (Chronic) Fatigue (Chronic) SOB (shortness of breath) (Chronic) - VTE Risk Labs: VTE Related Lab Results Hgb 14.0 g/dL (14.1-18.0) L 06/04/20 10:00 Hct 42.9 % (42.0-52.0) 06/04/20 10:00 Plt Count 165 K/mm3 (142-424) 06/04/20 10:00 BUN 29 mg/dl (9-20) H 06/04/20 10:00 Creatinine 1.40 mg/dl (0.66-1.25) H 06/04/20 10:00 Estimated Creat Clear 55 mL/min (50-200) 06/04/20 10:00 Was VTE Risk Assessment Performed: Yes VTE Score: 3 VTE Risk Level: Low Risk - Prophylaxis VTE Prophylaxis Ordered?: Yes Types of VTE Prophylaxis: Pharmacological Pharmacologic Type: Enoxaparin
[2020-06-05 09:20] LABS: Chloride 108 mmol/L (98-107); Sodium 139 mmol/L (136-145)
[2020-06-05 09:21] LABS: Potassium 3.9 mmoL/L (3.5-5.1)
[2020-06-05 09:23] LABS: Alanine Aminotransferase 51 U/L (12-78); Alkaline Phosphatase 62 U/L (38-126); Aspartate Amino Transferase 53 U/L (17-59); Bilirubin,Total 0.6 mg/dl (0.2-1.3); Blood Urea Nitrogen 28 mg/dl (9-20); Creatinine Clearance Estimated 76 mL/min (50-200); Estimated Glomerular Filt Rate 81 ml/min (>60); GFR (African American) 98 ML/MIN (>60)
[2020-06-05 09:24] LABS: Albumin Level 3.3 g/dl (3.5-5.0); Anion Gap 14.9 mEq/L (5-15); Calcium 8.4 mg/dl (8.4-10.2); Carbon Dioxide 20 mmol/L (22.0-30.0); Globulin 3.2 g/dL (1.3-3.2); Glucose 189 mg/dl (74-100); Total Protein,Serum 6.5 g/dl (6.3-8.2)
--- NOTE | 2020-06-05 11:30 | HMH.PULMCON ---
*Admission Date: 06/04/20 *Reason for consult:: COVID- 19 pneumonia *History of present illness: Mr. Burgess is a 79-year-old male previous smoker last smoked in 1963, denies any baseline respiratory symptoms, not on any inhalers at home, CAD, AZain jennifer presented to the hospital with worsening respiratory failure and was admitted as he is found to have COVID-19 pneumonia. Patient on further questioning states that he is also experiencing GI upset and unable to adequately cope up with oral intake. Complains of cough with productive phlegm however he denies any productive phlegm after admission to the hospital. [facility] History Medical History: Reports:: Atrial Fibrillation, Coronary Artery Disease, Gastroesophageal Reflux Disease(GERD), Hyperlipidemia, Hypertension Denies:: Cancer, Diabetes Mellitus Type 1, Diabetes Mellitus Type 2, Internal Pacemaker, Lung Disease, MRSA, Seizures *Have you ever received a pneumonia vaccine?: Yes *Have you received a flu vaccine this season?: Yes Other Medical History: Denies: Blood Transfusion Reaction Laterality Cases: Bilateral: Arthroscopy Knee Other Surgeries: Yes: Angiogram, Cardiac Catheterization, Cholecystectomy, Coronary Stent (x1). No: Pacemaker Amputation: No Fractures: No - *Social History Smoking Status: Former smoker Alcohol Intake: never Substance Use Type: denies use *Occupational Status:: retired Housing: house Household Members: spouse *Travel in the last 8 weeks: None Family Hx:: Heart Attack ROS - Cons Denies chills, Denies fatigue, Denies fever(s), Denies poor appetite, Denies weight loss - Eyes Denies dry eyes, Denies sensitivity to light - ENT Denies dizziness, Denies facial pain, Denies pain with swallowing, Denies tongue swelling - Card Reports shortness of breath with activity, Denies leg swelling - Resp Respiratory: Yes shortness of breath, No dyspnea, Yes dyspnea on exertion, No coughing up blood, Yes cough with sputum production, No pain with breathing, No stridor - GI Gastrointestingal: Reports: abdominal pain, nausea. Denies: dysphagia, reflux, vomiting - [place] Musculoskeletal: Denies neck pain, Denies small joint pain in the hands - Psych Denies confusion, Denies depression Meds Home Medications Medication Instructions Recorded Confirmed Type alfuzosin 10 mg tablet,extended 10 mg PO DAILY 04/13/18 06/04/20 History release 24 hr amlodipine 10 mg tablet 10 mg PO DAILY 04/13/18 06/04/20 History ergocalciferol (vitamin D2) 1,250 50,000 unit PO QWEEK 04/13/18 06/04/20 History mcg (50,000 unit) capsule aspirin 81 mg tablet,delayed 81 mg PO DAILY 05/05/18 06/04/20 History release Apixaban [Eliquis] 5 mg PO BID 05/21/18 06/04/20 History omeprazole 40 mg capsule,delayed 40 mg PO DAILY #60 cap 12/10/19 06/04/20 Rx release atorvastatin 40 mg tablet 40 mg PO DAILY #90 tab 02/15/20 06/04/20 Rx Escitalopram Oxalate 10 mg PO DAILY 06/04/20 06/04/20 History Finasteride [Proscar 5mg Tablet] 5 mg PO DAILY 06/04/20 06/04/20 History Furosemide [Furosemide 40MG tAB*] 40 mg PO BID 06/04/20 06/04/20 History Spironolactone 50 mg PO DAILY 06/04/20 06/04/20 History Montelukast Sodium 10 mg PO HSP PRN 06/05/20 06/05/20 History Allergies Allergy/AdvReac Type Severity Reaction Status Date / Time No Known Allergies Allergy Verified 05/22/20 08:42 Exam Radiology reports for Last 24 Hours: Chest x-ray showed bilateral faint pulmonary infiltrates, more in the right upper lobe and left lower lobe. - Constitutional Constitutional:: no acute distress, comfortable, healthy appearing - HENND Exam [facility]: normocephalic, atraumatic - Eye Exam Eyes:: normal appearance both eyes and related structures - Neck Exam Neck:: normal visual inspection, thyroid normal, no lymphadenopathy - Respiratory Exam Respiratory:: lungs clear, normal breath sounds, no respiratory distress - Cardiovascular Exam Cardiac:: regular rhythm, S1, S2 - GI Exam GI:: soft, no
--- NOTE | 2020-06-05 12:49 | HMH.ACPN2 ---
Internal Medicine - PN: Subj *Date: 06/05/20 *Time: 19:33 Interval history: uneventful night for the most part night sweats noted supplemental 02 transiently voices no c/o chest pain nausea is abating Exam Vital signs and Labs for Last 24 Hours: Temp Pulse Resp BP Pulse Ox 97.6 F 49 L 20 122/67 95 06/05/20 11:45 06/05/20 11:45 06/05/20 11:45 06/05/20 11:45 06/05/20 11:45 Laboratory Results - last 24 hr 06/05/20 08:18: Sodium 139, Potassium 3.9, Chloride 108 H, Carbon Dioxide 20 L, Anion Gap 14.9, BUN 28 H, Creatinine 0.90 D, Estimated Creat Clear 76, Estimated GFR 81, Est GFR ( Amer) 98 D, Glucose 189 H D, Calcium 8.4, Total Bilirubin 0.6, AST 53, ALT 51, Alkaline Phosphatase 62, Total Protein 6.5, Albumin 3.3 L D, Globulin 3.2, Albumin/Globulin Ratio 1.0 L I & O for Last 24 hours: Intake & Output 06/03/20 06/04/20 06/04/20 06/05/20 00:59 00:59 23:59 23:59 Intake Total 1692 / 1692 Output Total 601 / 601 Balance 1091 / 1091 Weight 200 lb - Constitutional no acute distress, average body habitus, cooperative - *Routine HEENT Exam Head: Present: normocephalic Eye: Present: EOMI, PERRL ENT: Present: mucous membranes moist - *Routine Neck Exam Present: supple. Absent: lymphadenopathy - *Routine Respiratory Exam Present: crackles. Absent: accessory muscle use, respiratory distress, stridor - *Routine Cardiovascular Exam Present: RRR - *Routine Abdominal Exam Present: soft, normoactive bowel sounds. Absent: tenderness - *Routine Extremities Exam Absent: cyanosis, clubbing, edema Comments: right calf fullness to palpation, result of trauma s/p tkr right - *Routine Skin Exam Present: warm. Absent: rash - *Routine Neurological Exam Present: alert, oriented X3 Assessment and Plan (1) COVID-19 Status: Acute Category: Medical Code(s): U07.1 - COVID-19 (2) SOB (shortness of breath) Status: Chronic Category: Medical Code(s): R06.02 - Shortness of breath (3) Anticoagulation adequate with anticoagulant therapy Status: Chronic Category: Medical Code(s): Z79.01 - remote computer terminal operator (current) use of anticoagulants (4) Atrial fibrillation Status: Chronic Qualifiers: Atrial fibrillation type: paroxysmal Qualified Code(s): I48.0 - Paroxysmal atrial fibrillation Category: Medical Code(s): I48.91 - Unspecified atrial fibrillation (5) CAD (coronary artery disease) Status: Chronic Qualifiers: Coronary Disease-Associated Artery/Lesion type: [place] artery [place] vs. transplanted heart: [place] heart Associated angina: without angina Qualified Code(s): I25.10 - Atherosclerotic heart disease of [place] coronary artery without angina pectoris Category: Medical Code(s): I25.10 - Atherosclerotic heart disease of [place] coronary artery without angina pectoris (6) Fatigue Status: Chronic Qualifiers: Fatigue type: unspecified Qualified Code(s): R53.83 - Other fatigue Category: Medical Code(s): R53.83 - Other fatigue (7) Left lower lobe pneumonia Status: Acute Category: Medical Code(s): J18.9 - Pneumonia, unspecified organism - Assessment and plan all Dx Assessment and Plan for all problems:: We will continue current regimen with the addition of remdesivir. We will ask for further input from pulmonary.
--- NOTE | 2020-06-05 19:37 | XR_ITS ---
PROCEDURE: XR CHEST PORTABLE CLINICAL HISTORY: covid Cough and congestion COMPARISON: CT CHESTWO CT chest wo con from 12/31/2018 CR XR CHEST 2V from 06/04/2020 FINDINGS: The cardiomediastinal silhouette and pulmonary vascularity are within normal limits. Left lower lobe pneumonia has shown improvement. The previously noted pathology was mainly apparent on the lateral view which was not obtained on today's exam. There is some patchy ground-glass attenuation in the perihilar regions on both sides suggesting perihilar infiltrates. No acute bony abnormalities. IMPRESSION: New ground-glass perihilar infiltrates with improvement in left basilar airspace disease Dictated by: Srikanth Brandon MD 06/06/2020 07:08 Srikanth Brandon MD in [place] 06/06/2020 07:08
--- NOTE | 2020-06-05 20:55 | PC.NURSE ---
Pt pleasant. Remains on room air. Reports improvement of appetite this shift. No c/o nausea this shift. Has had one loose stool early this AM. Ambulates independently in room. Voiding per urinal w/o difficulty, urine is cholo in color. No complaints voiced. Call terrell w/in reach.
--- NOTE | 2020-06-05 23:57 | PC.NURSE ---
Patient states he has been short of breath every day for the past 11 years but is not currently feeling short of breath tonight. O2 sats staying at 95.
--- NOTE | 2020-06-06 00:30 | PC.NURSE ---
ETT placement moved to left side.
--- NOTE | 2020-06-06 03:54 | PC.NURSE ---
He has slept t/o the night. Has remained on RA. O2 92% at this time. Ambulates independently with steady gait to bathroom. Uses call light appropriately to call for assistance when needed. Has been bradycardic t/o the night. He reports that he has felt better today but did have SOA. He states that he has had SOA for 15 years.
[2020-06-06 04:00] VITALS: BP 109/66; PULSE 54; RESP 17; TEMP 36.3; O2SAT 94
[2020-06-06 04:13] VITALS: BMI 33.5
--- NOTE | 2020-06-06 05:18 | PC.NURSE ---
He denies pain. Also denies cough, nausea, vomiting, or diarrhea. He is A&Ox4. No acute changes. Continues to be bradycardic.
[2020-06-06 06:26] LABS: Basophils % 0.1 % (0.1-2.0); Hematocrit 39.5 % (42.0-52.0); Hemoglobin 12.4 g/dL (14.1-18.0); Lymphocytes # 1.3 K/mm3 (0.7-4.5); Lymphocytes % 12.4 % (10-50); Mean Corpuscular HGB Conc 31.4 g/dL (31.8-35.4); Mean Corpuscular Hemoglobin 29.9 pg (27.0-31.2); Mean Platelet Volume 8.6 fl (7.4-10.4); Monocytes # 0.5 K/mm3 (0.1-1.0); Monocytes % 4.9 % (1.7-9.3); Neutrophils # 8.4 K/mm3 (1.8-7.8); Neutrophils % 82.4 % (37.0-80.0); Platelet Count 202 K/mm3 (142-424); Red Blood Count 4.16 M/mm3 (4.60-6.20); Red Cell Distribution Width 14.5 % (11.5-17.5); White Blood Count 10.2 K/mm3 (4.8-10.8)
[2020-06-06 06:35] LABS: Chloride 109 mmol/L (98-107); Potassium 3.9 mmoL/L (3.5-5.1); Sodium 138 mmol/L (136-145)
[2020-06-06 06:38] LABS: Alanine Aminotransferase 58 U/L (12-78); Albumin Level 3.2 g/dl (3.5-5.0); Alkaline Phosphatase 60 U/L (38-126); Anion Gap 12.9 mEq/L (5-15); Aspartate Amino Transferase 53 U/L (17-59); Bilirubin,Total 0.5 mg/dl (0.2-1.3); Blood Urea Nitrogen 27 mg/dl (9-20); Calcium 8.3 mg/dl (8.4-10.2); Carbon Dioxide 20 mmol/L (22.0-30.0); Creatinine Clearance Estimated 81 mL/min (50-200); Estimated Glomerular Filt Rate 93 ml/min (>60); GFR (African American) 113 ML/MIN (>60); Globulin 3.3 g/dL (1.3-3.2); Glucose 134 mg/dl (74-100); Total Protein,Serum 6.5 g/dl (6.3-8.2)
[2020-06-06 07:56] VITALS: BP 133/66; PULSE 51; RESP 18; TEMP 36.5; O2SAT 95
--- NOTE | 2020-06-06 09:33 | HMH.DCSUM ---
General - General Admission date:: 06/04/20 Discharge date: 06/06/20 HPI HPI: per ER The patient is an 79 year old male who presents with shortness of breath, weakness and vomiting for the last week. On arrival he is awake and alert. He is hemodynamically stable with HR in the 60s and BP in the 100/60s. He speaks in full sentences but appears short of breath. Lungs are clear. Abdomen is benign. Labs including CBC, CMP, lipase, troponin, UA were obtained. CXR was obtained. Labwork unremarkable He was tested for COVID-19. IgG was positive on rapid serology but IgM was negative. PCR swab was obtained. Due to patients continued increased work of breathing at rest Dr. Balbuena was consulted for admission who agreed. Patient was satting 94% on room air at this time. Patient had been seen earlier for shortness of breath. He was worked up in cardiology for a DVT. His PCR is positive. He was taking less and less p.o., he began to feel immediately better after some IV fluid. His dyspnea is well modulated at rest, he is currently not requiring room air. He is having no chest pain. He is in no acute distress. We are starting remdesivir, dexamethasone, and Lovenox. Hospital Course Hospital Course: Laboratory Tests 06/04/20 06/04/20 06/04/20 10:00 10:00 10:00 WBC 9.6 RBC 4.62 Hgb 14.0 L Hct 42.9 MCV 92.7 MCH 30.3 MCHC 32.7 RDW 14.8 Plt Count 165 MPV 7.9 Neut % (Auto) 81.1 H Lymph % (Auto) 16.4 [place] % (Auto) 2.2 Eos % (Auto) 0.0 L Baso % (Auto) 0.2 Neut # (Auto) 7.8 Lymph # (Auto) 1.6 [place] # (Auto) 0.2 Eos # (Auto) 0.0 Baso # (Auto) 0.0 Sodium 138 Potassium 4.1 Chloride 103 Carbon Dioxide 22 Anion Gap 17.1 H BUN 29 H Creatinine 1.40 H Estimated Creat Clear 55 Estimated GFR 49 L Est GFR ( Amer) 59 Glucose 139 H Calcium 9.2 Magnesium Total Bilirubin 1.0 AST 53 ALT 51 Alkaline Phosphatase 72 Troponin I 0.02 NT-Pro-B Natriuret Pep Total Protein 7.8 Albumin 4.2 Globulin 3.6 H Albumin/Globulin Ratio 1.2 Amylase 59 Lipase 86 Chlamy pneumoniae PCR Adenovirus (PCR) B. pertussis DNA (PCR) Coronavirus OC43 (PCR) Coronavirus HKU1 (PCR) Coronavirus 229E (PCR) SARS-CoV-2 (PCR) Coronavirus NL63 (PCR) Human Metapneumovir PCR Influenza A (H1) PCR Influ A (H1N1/) PCR Influenza A (H3) PCR Influenza Type A (PCR) Influenza Type B (PCR) M. pneumoniae (PCR) Parainfluenza 1 (PCR) Parainfluenza 2 (PCR) Parainfluenza 3 (PCR) Parainfluenza 4 (PCR) RSV (PCR) Entero/Rhino (PCR) SARS-CoV-2 IgG Ab (Rapid) Positive A SARS-CoV-2 IgM Ab (Rapid) Negative Blood Type Antibody Screen 06/04/20 06/04/20 06/04/20 10:00 10:00 10:20 WBC RBC Hgb Hct MCV MCH MCHC RDW Plt Count MPV Neut % (Auto) Lymph % (Auto) [place] % (Auto) Eos % (Auto) Baso % (Auto) Neut # (Auto) Lymph # (Auto) [place] # (Auto) Eos # (Auto) Baso # (Auto) Sodium Potassium Chloride Carbon Dioxide Anion Gap BUN Creatinine Estimated Creat Clear Estimated GFR Est GFR ( Amer) Glucose Calcium Magnesium 2.3 Total Bilirubin AST ALT Alkaline Phosphatase Troponin I NT-Pro-B Natriuret Pep 490 H Total Protein Albumin Globulin Albumin/Globulin Ratio Amylase Lipase Chlamy pneumoniae PCR Adenovirus (PCR) B. pertussis DNA (PCR) Coronavirus OC43 (PCR) Coronavirus HKU1 (PCR) Coronavirus 229E (PCR) SARS-CoV-2 (PCR) Coronavirus NL63 (PCR) Human Metapneumovir PCR Influenza A (H1) PCR Influ A (H1N1/) PCR Influenza A (H3) PCR Influenza Type A (PCR) Influenza Type B (PCR) M. pneumoniae (PCR) Parainfluenza 1 (PCR) Parainfluenza 2 (PCR) [place]
== END 2020-06-06 11:06 | disposition home or self-care (01) | DRG 177 ==
LOC: ER 11:26 → ICU 12:51
PROVIDERS: Admitting Provider Family Medicine; Emergency Provider Emergency Medicine; PCP Nurse Practitioner Family; Visit Provider Family Medicine
DX: U07.1 COVID-19 (principal); J12.89 Other viral pneumonia; I48.20 Chronic atrial fibrillation, unspecified; I25.10 Atherosclerotic heart disease of native coronary artery without angina pectoris; I10 Essential (primary) hypertension; Z79.01 Long term (current) use of anticoagulants; Z95.5 Presence of coronary angioplasty implant and graft; Z79.82 Long term (current) use of aspirin
CPT/HCPCS: 71045; 71046; 80053; 82150; 83690; 83735; 83880; 84484; 85025; 86328; 86850; 87581; 87633; 87798; 93005; 96365; 96367; 96375; 99282; J0456; J2405

== ENCOUNTER → 2020-12-18 10:07 | Outpatient (CLI) | payer MEDICARE, BC, SELFPAY ==
--- NOTE | 2020-12-18 10:13 | US_ITS ---
PROCEDURE: US LIVER CLINICAL INDICATION: LIVER LESION COMPARISON: CT CT ABDOMEN WO/W CON from 05/19/2020 FINDINGS: PANCREAS: Pancreas is not well delineated due to overlying bowel gas. CT or MRI without and with contrast with pancreatic protocol may provide further evaluation if clinically desired. LIVER: Prior CT demonstrated what appears to represent a cyst in the hepatic dome posteriorly. This area is very difficult to evaluate by ultrasound. On multiple maneuvers there did appear to be a small cystic area in the hepatic dome posteriorly measuring 10 mm which may correspond to the cyst noted on the previous CT scan. No additional lesions or evident of the liver. RIGHT KIDNEY: Unremarkable. Normal size and echogenicity. No hydronephrosis GALLBLADDER: Prior cholecystectomy. Common bile duct is normal at 6 mm. IMPRESSION: Prior cholecystectomy. 10 mm a hepatic cyst is noted which may correspond to the CT abnormality Otherwise negative Dictated by: Srikanth Brandon MD 12/18/2020 11:32 Srikanth Brandon MD in [place] 12/18/2020 11:32
== END ==
PROVIDERS: PCP Nurse Practitioner Family; Visit Provider Nurse Practitioner Family
DX: K76.9 Liver disease, unspecified (principal)
CPT/HCPCS: 76705

== ENCOUNTER → 2020-12-25 11:45 | Outpatient (CLI) | payer MEDICARE, BC, SELFPAY ==
--- NOTE | 2020-12-25 11:45 | NM_ITS ---
APPROVED REPORT Exam: Nuclear Stress Test Indication: HTN, SOB, HYPERLIPIDEMIA, A-FIB Patient Location: Outpatient Stress Tech: Kate White NM Tech:Dottie Morrow, ARRT, RT (R)(N) Ht: 5 ft 7 in Wt: 220 lbs HR: 58 bpm BP: 155/75 mmHg BSA: 2.11 m2 BMI: 34.4 History: HTN, SOB, HYPERLIPIDEMIA, A-FIB Procedure: Patient received a 0.4 mg of intravenous Lexiscan, resting heart rate 58 bpm, resting blood pressure 155/75 mmHg, with Lexiscan maximum heart rate achived was 68 bpm which is Less than 85 % of the maximum predicted heart rate and blood pressure was 144/72 mmHg. With Lexiscan, patient denied any complaint of chest pain. Electrocardiogram Resting electrocardiogram showed sinus rhythm, with Lexiscan there is less than 1.[address] segment depression noted from the baseline EKG. The EKG portion of the Lexiscan is nondiagnostic. Cardiac Stress and Resting SPECT Images: Cardiac Stress and Resting SPECT images were obtained using technetium 99m Myoview 30.5 mCi stress and 9.60 mCi at rest. Gated SPECT for analysis of segmental wall motion and calculation of the ejection fraction also done. Prone images were also obtained. Cardiac stress and resting SPECT images show normal myocardial perfusion, with no segmental perfusion abnormality, computer derived ejection fraction is 53% with no regional wall motion abnormality, right ventricle is normal size and contractility. Conclusion: 1. The EKG portion of the Lexiscan is nondiagnostic. 2. No scintigraphic evidence of reversible ischemia seen, computer derived ejection fraction is 53% with no regional wall motion abnormality, right ventricle is normal size and contractility. 3. Normal Lexiscan Myoview study. Electronically signed by : Emerson Card, 12/26/2020 06:18:50
--- NOTE | 2020-12-25 13:30 | CA_ITS ---
APPROVED REPORT Exam: Pharmacologic Technologist: Kate White, Ht: 5 ft 7 in Wt: 220 lbs BSA: 2.11 m2 HR: 58 bpm BP: 155/75 mmHg Rhythm: SINUS NADEEM Medical History Medical History: HTN, Hyperlipidemia Medications: Amlodipine,,,,, Aspirin,,,,, Atorvastatin,,,,, Escitalopram,,,,, Montelukast,,MON,,, Finasteride,,,,, ElIQUIS,,,,, SpirOnolactone,,,,, OmeprazLE,,,,, Alfuzosin,,,,, Furosemide,,,,, Cardiac Risk Factors: HTN, , Hyperlipidemia, FHX of CAD, Smoking Stress Test Details Test: LEXISCAN HR Resting HR: 61 bpm Max Heart Rate (APMHR): 139 bpm Max HR Achieved: 71 bpm Target HR (85% APMHR): 118 bpm % of APMHR: 51 Recovery HR: 63 bpm BP Resting BP: 155/75 mmHg Max BP: 159/73 mmHg Recovery BP: 159.0/73.0 mmHg ECG Resting ECG: SINUS NADEEM Clinical Exercise duration: 04:00 min Highest Stage Achieved: Exercise capacity: 1.0 METs Stress ECG Conclusion LEXISCAN PROTOCOL COMPLETE. PATIENT HAD NO CP. COMPLAINED OF SOB AT PEAK INFUSION. OCC PAC. Less THAN 1.[address] ABN. IMAGES TO FOLLOW Electronically signed by : Emerson Card, 12/26/2020 06:04:00
--- NOTE | 2020-12-25 13:45 | HMH.ITSHM ---
Current Home Medications as stated by this patient Juan M Burgess or claims service representative. []OMEPRAZOLE VITAMIN D2 ATORVASTATIN ASA AMLODIPINE ALFUZOSIN SPIRONOLACTONE MONTELUKAST FUROSEMIDE ESCITALOPRAM APIXABAN
--- NOTE | 2020-12-25 13:51 | CA_ITS ---
APPROVED REPORT EXAM: Comprehensive 2D, Doppler, and color-flow Echocardiogram Oil Boiler: Radha Serrano RT(R) Ht: 5 ft 6 in Wt: 216lbs BSA: 2.07 BP: 131/84 mmHg Indications: SOB, CP, PAF, CAD, HTN 2D Dimensions LVOT 2.10 cm (M/F) 1.5-2.5 LA Volume 57.30 mL LA Volume Index 27.81 mL/m2 (M/F) 16-34 M-Mode Dimensions RVDd 1.74 cm (0.9-2.6) LA Diam 4.84 cm (1.9-4.0) LVDd 4.77 cm (3.5-5.7) Ao Diam 2.73 cm (2.0-3.7) LVDs 4.23 cm (3.5-5.7) IVSd 1.17 cm (0.6-1.1) PWd 0.64 cm (0.6-1.1) EF (Teich) 24.60% FS 11.30% EDV (Teich) 106.00 mL ESV (Teich) 79.90 mL LV Diastology E Decel Time 243.00 (160-240 msec) E/A Ratio 0.6 MED E' 5.70 (< 7 cm/sec) E'/MED E' Ratio 10.89 (>14) LAT E' 8.10 (<10 cm/sec) E/LAT E' Ratio 7.67 (>14) Aortic Valve AoV Peak Anastacio. 197.00 (50-130 cm/s) AO Peak GR. 15.50 mmHg AO Mean GR. 7.60 (<5 mmHg) AO VTI 41.31 (18-25 cm) Mitral Valve MV E Max Anastacio. 62.00 (40-130 cm/s) MV A Velocity 99.00 (40-130 cm/s) E/A Ratio 0.63 MV Decel. Time 243.00 (160-240 ms) MV PHT 71.00 ms Left Ventricle Left atrium is mildly enlarged, left ventricle is normal size, mild concentric left ventricular hypertrophy, visually estimated ejection fraction 55% with no regional wall motion abnormality, grade 1 diastolic dysfunction seen without tissue Doppler evidence of raise left atrial pressure. Right Ventricle Right atrium and right ventricle are normal size and contractility. Aortic Valve Aortic valve is thickened and calcified without Doppler evidence of aortic stenosis, there is mild aortic insufficiency. Mitral Valve Mitral valve has mild mitral annular calcification, leaflets are minimally thickened there is mild mitral regurgitation. Tricuspid Valve Tricuspid valve grossly normal, there is trace tricuspid regurgitation. Tricuspid regurgitation jet velocity is inadequate for calculation of the right ventricular systolic pressure. Pulmonic Valve Pulmonic valve is poorly visualized. Great Vessels Aortic root is normal size. Pericardium No significant pericardial effusion noted. Conclusion 1. Mildly enlarged left atrium, normal left ventricular size, mild concentric left ventricular hypertrophy, visually estimated ejection fraction 55% with no regional wall motion abnormality, grade 1 diastolic dysfunction seen without tissue Doppler evidence of raise left atrial pressure. 2. Thickened and calcified aortic valve without Doppler evidence of aortic stenosis, there is mild aortic insufficiency. 3. Mild mitral and trace tricuspid regurgitation. 4. No significant pericardial effusion noted. Electronically signed by : Emerson Card, 12/26/2020 05:04:42
== END ==
PROVIDERS: PCP Nurse Practitioner Family; Visit Provider Urology
DX: E78.49 Other hyperlipidemia (principal); I10 Essential (primary) hypertension; I25.10 Atherosclerotic heart disease of native coronary artery without angina pectoris; I48.0 Paroxysmal atrial fibrillation; I48.92 Unspecified atrial flutter; Z79.01 Long term (current) use of anticoagulants; Z87.891 Personal history of nicotine dependence
CPT/HCPCS: 78452; 93017; 93306; A9502; J2785

== ENCOUNTER → 2021-01-08 13:31 | Outpatient (CLI) | payer MEDICARE, BC, SELFPAY ==
--- NOTE | 2021-01-08 13:32 | CA_ITS ---
APPROVED REPORT Pipe Or Steam Fitter Furnace Installer: Radha Serrano RT(R) Laterality: Bilateral Indications: ap/dyspnea, dizziness Risk Factors Hypertension: hx of smoking Doppler Spectral Velocity Analysis ECA (R) 100.30/12.00 cm/s ECA (L) 104.00/12.00 cm/s dICA (R) 93.10/21.20 cm/s dICA (L) 84.50/21.00 cm/s Jude (R) 80.30/19.30 cm/s Jdue (L) 72.60/15.70 cm/s pICA (R) 63.60/9.00 cm/s pICA (L) 78.60/12.70 cm/s dCCA (R) 80.10/17.20 cm/s dCCA (L) 95.00/18.70 cm/s pCCA (R) 89.00/12.70 cm/s pCCA (L) 111.50/13.50 cm/s Vert (R) 49.40/10.90 cm/s Vert (L) 58.40/11.20 cm/s ICA/CCA 1.16 ICA/CCA 0.89 Findings Duplex evaluation demonstrates stenosis of the right proximal internal carotid artery <20% with PSV <140 cm/sec, EDV <100 cm/sec, and IC/CC Ratio <4.0. Duplex evaluation demonstrates stenosis of the left proximal internal carotid artery <20% with PSV <140 cm/sec, EDV <100 cm/sec, and IC/CC Ratio <4.0. Electronically signed by : Srikanth Brandon MD 01/08/2021 17:41:40
== END ==
PROVIDERS: PCP Nurse Practitioner Family; Visit Provider Urology
DX: E78.49 Other hyperlipidemia (principal); I10 Essential (primary) hypertension; I25.10 Atherosclerotic heart disease of native coronary artery without angina pectoris; I48.0 Paroxysmal atrial fibrillation; I48.92 Unspecified atrial flutter; R09.89 Other specified symptoms and signs involving the circulatory and respiratory systems; R42 Dizziness and giddiness; Z79.01 Long term (current) use of anticoagulants
CPT/HCPCS: 93880

== ENCOUNTER → 2021-03-15 14:01 | Outpatient (CLI) | payer MEDICARE, BC, SELFPAY ==
--- NOTE | 2021-03-15 14:13 | XR_ITS ---
PROCEDURE: XR CHEST 2V CLINICAL HISTORY: SOB COMPARISON: CT CHESTWO CT chest wo con from 12/31/2018 CR XR CHEST 2V from 06/04/2020 CR XR CHEST PORTABLE from 06/05/2020 FINDINGS: The cardiomediastinal silhouette and pulmonary vascularity are within normal limits. The lungs are clear without infiltrates, suspicious nodules, or pleural effusions. No acute bony abnormalities. IMPRESSION: No acute findings. Dictated by: Srikanth Brandon MD 03/15/2021 15:17 Srikanth Brandon MD in [facility] 03/15/2021 15:17
== END ==
PROVIDERS: PCP Nurse Practitioner Family; Visit Provider Internal Medicine Pulmonary Disease
DX: J44.9 Chronic obstructive pulmonary disease, unspecified (principal)
CPT/HCPCS: 71046

== ENCOUNTER → 2021-03-27 09:45 | Outpatient (CLI) | payer MEDICARE, BC, SELFPAY ==
[2021-03-27 10:30] VITALS: PULSE 61
== END ==
PROVIDERS: PCP Nurse Practitioner Family; Visit Provider Internal Medicine Pulmonary Disease
DX: R06.00 Dyspnea, unspecified (principal)
CPT/HCPCS: 94060; 94618; 94640; 94726; 94729

== ENCOUNTER → 2021-12-18 08:21 | Outpatient (POV) | payer MEDICARE, BC, SELFPAY | PROVIDERS: Visit Provider Dermatology | DX: Z00.00 Encounter for general adult medical examination without abnormal findings (principal) ==

== ENCOUNTER → 2021-12-19 08:47 | Outpatient (CLI) | payer MEDICARE, SELFPAY ==
[2021-12-19 09:23] LABS: Basophils # 0.1 K/mm3 (0-0.2); Basophils % 1.4 % (0.1-2.0); Eosinophils # 0.1 K/mm3 (0.0-0.4); Eosinophils % 1.7 % (0.1-12.0); Hematocrit 41.6 % (42.0-52.0); Hemoglobin 13.7 g/dL (14.1-18.0); Lymphocytes # 3.1 K/mm3 (0.7-4.5); Lymphocytes % 38.4 % (10-50); Mean Corpuscular HGB Conc 32.8 g/dL (31.8-35.4); Mean Corpuscular Hemoglobin 29.4 pg (27.0-31.2); Mean Corpuscular Volume 89.7 fl (80-94); Mean Platelet Volume 7.8 fl (7.4-10.4); Monocytes # 0.4 K/mm3 (0.1-1.0); Monocytes % 5.3 % (1.7-9.3); Neutrophils # 4.2 K/mm3 (1.8-7.8); Neutrophils % 53.2 % (37.0-80.0); Platelet Count 213 K/mm3 (142-424); Red Blood Count 4.64 M/mm3 (4.60-6.20); Red Cell Distribution Width 15.2 % (11.5-17.5)
[2021-12-19 09:56] LABS: Alanine Aminotransferase 19 U/L (12-78); Albumin Level 3.9 g/dl (3.5-5.0); Alkaline Phosphatase 75 U/L (38-126); Anion Gap 11.4 mEq/L (5-15); Aspartate Amino Transferase 20 U/L (17-59); Bilirubin,Indirect 0.3 mg/dL (0.0-0.9); Bilirubin,Total 0.3 mg/dl (0.2-1.3); Bilirubin,Unconjugated 0.7 mg/dL (0.0-1.1); Blood Urea Nitrogen 16 mg/dl (9-20); Calcium 8.7 mg/dl (8.4-10.2); Carbon Dioxide 28 mmol/L (22.0-30.0); Chloride 105 mmol/L (98-107); Chol/HDL Ratio 2.5 (1-3.5); Cholesterol 109 mg/dl (140-200); Estimated Glomerular Filt Rate 93 ml/min (>60); GFR (African American) 112 ML/MIN (>60); Glucose 116 mg/dl (74-100); HDL Cholesterol 44 mg/dl (40-60); Potassium 3.4 mmoL/L (3.5-5.1); Sodium 141 mmol/L (136-145); Total Protein,Serum 6.1 g/dl (6.3-8.2); Triglycerides 94 mg/dl (30-150); VLDL Cholesterol 19 mg/dL (0-40)
[2021-12-19 10:07] LABS: Direct LDL Cholesterol 41.65 mg/dL (100-129)
[2021-12-19 10:25] LABS: Hemoglobin A1C 5.9 % (4.0-6.0)
== END ==
PROVIDERS: Visit Provider Nurse Practitioner Family
DX: E11.9 Type 2 diabetes mellitus without complications (principal); E78.5 Hyperlipidemia, unspecified; I10 Essential (primary) hypertension; I25.10 Atherosclerotic heart disease of native coronary artery without angina pectoris; I48.91 Unspecified atrial fibrillation; I48.92 Unspecified atrial flutter; Z79.01 Long term (current) use of anticoagulants; Z51.81 Encounter for therapeutic drug level monitoring; U09.9 Post COVID-19 condition, unspecified
CPT/HCPCS: 36415; 80048; 80061; 80076; 83036; 85025

== ENCOUNTER → 2022-02-05 09:38 | Outpatient (POV) | payer MEDICARE, SELFPAY | PROVIDERS: Visit Provider Dermatology | DX: Z00.00 Encounter for general adult medical examination without abnormal findings (principal) ==

== ENCOUNTER → 2022-03-19 14:00 | Outpatient (POV) | payer MEDICARE, SELFPAY | PROVIDERS: Visit Provider Dermatology | DX: Z00.00 Encounter for general adult medical examination without abnormal findings (principal) ==

== ENCOUNTER → 2022-12-04 08:57 | Outpatient (CLI) | payer MEDICARE, SELFPAY ==
--- NOTE | 2022-12-04 08:58 | CT_ITS ---
FINAL REPORT TECHNIQUE: Axial images were obtained through the chest without contrast. These images were performed with high-resolution computed tomography. CLINICAL HISTORY: Shortness of breath HIGH RESOLUTION (INSPIRATION, EXPIRATION, PRONE INSPIRATION COMPARISON: None FINDINGS: The lungs are clear. The heart size is normal. There are mild vascular calcifications of the aortic arch. There are moderate calcifications in the coronary arteries. There is no pericardial or pleural effusion. Limited images of the upper abdomen demonstrate a benign-appearing cyst in the posterior right lobe of the liver measuring 1.5 cm. There is a nonobstructing stone in the superior pole left kidney measuring 7 mm. Lung windows demonstrate scarring in the right midlung. There is calcified granuloma at the left base. No evidence of bronchiectasis. No fibrosis. IMPRESSION: Coronary artery calcifications. Left kidney stone. Benign-appearing cyst right lobe of the liver Reviewed, Interpreted and Dictated by Stefano Miranda MD Transcribed by Hannah Baez Authenticated and [facility]
--- NOTE | 2022-12-04 09:40 | NM_ITS ---
FINAL REPORT CLINICAL HISTORY: Shortness of breath 10:10 am 36.4 mci tc DTPA inhaled 10:45 am 8.45 mci tc MAA injected into Lt ant current Chest xray was done today COMPARISON: None FINDINGS: The patient was injected with 8.45 mCi of technetium 99m MAA. 36.4 mCi of aerosolized DTPA was utilized for ventilation. Images of the lungs were obtained in multiple projections. Overall, perfusion is superior to ventilation. Normal distribution of radiopharmaceutical. There are no mismatched defects to suggest PE. IMPRESSION: No evidence of acute pulmonary embolism. Reviewed, Interpreted and Dictated by Stefano Miranda MD Transcribed by Hannah Baez Authenticated and [facility]
--- NOTE | 2022-12-04 10:58 | XR_ITS ---
FINAL REPORT TECHNIQUE: Chest PA & Lateral CLINICAL HISTORY: Shortness of breath COMPARISON: 03/15/2021 FINDINGS: 2 views of the chest were performed. The heart size is normal. The mediastinum is within normal limits. There is no acute cardiopulmonary process. There are no pleural effusions. There is no pneumothorax. The bony thorax appears intact. IMPRESSION: No acute cardiopulmonary process. Reviewed, Interpreted and Dictated by Stefano Miranda MD Transcribed by Hannah Baez Authenticated and [facility]
== END ==
PROVIDERS: PCP Nurse Practitioner Family; Visit Provider Internal Medicine Pulmonary Disease
DX: J84.9 Interstitial pulmonary disease, unspecified (principal); R06.09 Other forms of dyspnea; R06.02 Shortness of breath
CPT/HCPCS: 71046; 71250; 78582; A9540; A9567

== ENCOUNTER → 2022-12-06 13:04 | Outpatient (CLI) | payer MEDICARE, SELFPAY | PROVIDERS: PCP Nurse Practitioner Family; Visit Provider Nurse Practitioner Family | DX: R06.02 Shortness of breath (principal) | CPT/HCPCS: 94060; 94726; 94729 ==

== ENCOUNTER → 2022-12-19 12:36 | Outpatient (CLI) | payer MEDICARE, SELFPAY ==
--- NOTE | 2022-12-19 12:37 | CA_ITS ---
FINAL REPORT TECHNIQUE: Color Doppler, duplex Doppler and raines scale sonography of the bilateral neck arterial vasculature was performed. Velocities were measured in the carotid arteries. Stenosis evaluation based on the validated velocity criteria. CLINICAL HISTORY: ISIAH,HTN,HLD COMPARISON: None FINDINGS: The peak systolic velocity of the right common carotid artery is 61 cm/s. The peak systolic velocity of the right internal carotid artery is 72 cm/s and end diastolic velocity 19 cm/s. The ICA/CCA ratio is 1.2. A small amount of plaque is present. The right external carotid artery is patent. The right vertebral artery is patent with antegrade flow. The peak systolic velocity of the left common carotid artery is 82 cm/s. The peak systolic velocity of the left internal carotid artery is 67 cm/s and end diastolic velocity 17 cm/s. The ICA/CCA ratio is 0.8. A small amount of plaque is present. The left external carotid artery is patent.The left vertebral artery is patent with antegrade flow. IMPRESSION: Less than 50% bilateral carotid stenoses. Bilateral patent vertebral arteries with antegrade flow. If indicated, CTA or MRA could further evaluate. Reviewed, Interpreted and Dictated by Delvis Phillip III, MD Transcribed by Hannah Baez Authenticated and [facility]
== END ==
PROVIDERS: PCP Nurse Practitioner Family; Visit Provider Nurse Practitioner
DX: E78.49 Other hyperlipidemia (principal); I10 Essential (primary) hypertension; I25.10 Atherosclerotic heart disease of native coronary artery without angina pectoris; I48.0 Paroxysmal atrial fibrillation; R06.09 Other forms of dyspnea; R09.89 Other specified symptoms and signs involving the circulatory and respiratory systems; Z87.09 Personal history of other diseases of the respiratory system; Z98.890 Other specified postprocedural states
CPT/HCPCS: 93270; 93306; 93880

== ENCOUNTER 2022-12-26 16:50 | Inpatient (IN) | payer MEDICARE, SELFPAY ==
[2022-12-26 17:15] VITALS: BMI 34.2
[2022-12-26 17:16] VITALS: BP 122/71; PULSE 80; RESP 20; TEMP 36.4; O2SAT 95
--- NOTE | 2022-12-26 17:19 | EXP.HP ---
History of Present Illness *Admission Date: 12/26/22 *Reason for visit:: sinus pause *History of present illness: Juan M Burgess is a 82 year old male with a past medical history of atrial fibrillation/flutter, hypertension and hyperlipidemia. He was seen in Cardiology clinic on 12/24 and was found to have second degree AV block type 1 and 2, sinus bradycardia with HR 49, dyspnea and a sinus pause he was to hold 3 doses of Eliquis and have a Dual chamber PPM placement on 12/27. I was notified that the patient had a 6.6 second sinus pause caught via remote cardiac monitoring; we will be admitting the patient to watch him overnight and Cardiology will place a PPM tomorrow. He has had exertional dyspnea but currently no dyspnea at rest. He denies chest pain, cough and fever. [facility] Disclaimer: The information contained in this section may have been updated after the patient was seen, as this information can be updated by other users. Medical History Allergic rhinitis, unspecified Angina, class IV Atrial fibrillation Atrial flutter Bradycardia Dizziness Dyspnea on exertion Fatigue Former smoker H/O restrictive lung disease History of 2019 novel coronavirus disease (COVID-19) History of cardioversion HLD (hyperlipidemia) HTN (hypertension) SOB (shortness of breath) Surgical History H/O arthroscopy of knee History of hemorrhoidectomy History of rotator cuff surgery Family History Other Heart attack Social History Smoking Status: Former smoker second hand exposure: No alcohol intake: never substance use type: denies use current occupational status: retired Travel in the last 8 weeks: None household members: spouse housing: house caffeine: No Review of Systems Review of Systems Review of systems:: pertinent systems reviewed and negative unless documented below *Cardiovascular Cardiovascular: Reports dyspnea (with minimal exertion) *Respiratory Respiratory: Reports dyspnea (with minimal exertion) Meds Home Medications and Allergies Home Medications Medication Instructions Recorded Confirmed Type alfuzosin 10 mg tablet,extended 10 mg PO DAILY URINARY RETENTION 04/13/18 12/24/22 History release 24 hr amlodipine 10 mg tablet 10 mg PO DAILY High blood pressure 04/13/18 12/24/22 History ergocalciferol (vitamin D2) 1,250 50,000 unit PO QWEEK Supplement 04/13/18 12/24/22 History mcg (50,000 unit) capsule aspirin 81 mg tablet,delayed 81 mg PO DAILY Heart disease 05/05/18 12/24/22 History release (Aspir-) apixaban 5 mg tablet 5 mg PO BID Blood thinner 05/21/18 12/24/22 History escitalopram oxalate 10 mg tablet 10 mg PO DAILY Depression 06/04/20 12/24/22 History finasteride 5 mg tablet 5 mg PO DAILY BPH 06/04/20 12/24/22 History furosemide 40 mg tablet 40 mg PO BID Heart failure 06/04/20 12/24/22 History spironolactone 50 mg tablet 50 mg PO DAILY Heart failure 06/04/20 12/24/22 History montelukast 10 mg tablet 10 mg PO HSP PRN ALLERGIES 06/05/20 12/24/22 History omeprazole 40 mg capsule,delayed 40 mg PO DAILY GERD #90 caps 12/19/20 12/24/22 Rx release atorvastatin 40 mg tablet See Rx Instructions .Route 04/16/21 12/24/22 Rx .COMPLEX #90 tabs budesonide-formoterol HFA 80 1 inh inhalation QID PRN shortness 04/09/22 12/24/22 Rx mcg-4.5 mcg/actuation aerosol of breath or wheezing 90 days inhaler (Symbicort) #10.2 grams fluticasone propionate 50 1 spray intranasal BID 90 days #16 04/09/22 12/24/22 Rx mcg/actuation nasal grams spray,suspension (Flonase Allergy Relief) levocetirizine 5 mg tablet 5 mg PO DAILY PRN 05/09/22 12/24/22 History hydralazine 50 mg tablet 50 mg PO TID 12/05/22 12/24/22 History losartan 100 1 tab PO DAILY 12/05/22 12/24/22 History mg-hydrochlorothiazide 12.5 mg
[2022-12-26 17:30] VITALS: PULSE 60
--- NOTE | 2022-12-26 18:35 | PC.NURSE ---
A&OX4. TOLERATING RA WELL. SECOND DEGREE BLOCK ON TELE. PT IS INDEPENDENT IN ROOM. NO NEEDS OR C/O SINCE ARRIVAL TO FLOOR. VSS.
[2022-12-26 18:52] LABS: Coronavirus 19, PCR Not Detected (NotDetected); Influenza A, PCR Not Detected (NotDetected); Influenza B, PCR Not Detected (NotDetected)
[2022-12-26 20:00] VITALS: BP 134/64; PULSE 60; PULSE 63; RESP 18; TEMP 36.7; O2SAT 96
[2022-12-27] VITALS (13 sets, daily range): BP systolic 117–172; BP diastolic 45–80; PULSE 57–77; RESP 12–20; TEMP 36.4–36.8; O2SAT 91–99; BMI 33.6; BMI 33.5
--- NOTE | 2022-12-27 | IR_ITS ---
APPROVED REPORT Patient Location: Outpatient PROCEDURES 1. Pocket formation for Permanent Pacemaker Placement. 2. Placement of an atrial sensing and pacing coil into the right atrial appendage. 3. Placement of a ventricular sensing and pacing coil in the right ventricular apex. 4. Permanent Pacemaker Placement. INDICATION Complete heart block Informed consent was obtained prior to the procedure. COMPLICATIONS None Estimated Blood Loss: Less than 10 ml TECHNIQUE 1% Lidocaine with epinephrine used to anesthetized the left anterior aspect of the chest. Scalpel was used to make the initial cutaneous incision while electrocautery was used to dissect down tinto the fascia. The fascia was lifted off the pectoralis muscle and digitally manipulated creating a pocket for the pacemaker. The patient was then placed in Trendelenburg position and the subclavian vein was accessed twice via the Selinger technique, there are two wires in the vein. A 6 English sheath was placed under fluoroscopic guidance into the subclavian vein over one of the wires while keeping the other wire in place within the subclavian vein. The dilator was removed from the sheath. Using fluoroscopic guidance, the ventricular lead was placed into the right ventricular apex, screwed and secured into place. Electronic interrogation proved acceptable thresholds and voltage within the lead. Using 3-0 silk, the ventricular lead was then secured into place. Lead was secured to the facia using the 3-0 silk. Following this, the sheath was pealed away. An additional 6 English fresh sheath and dilator was placed over the existing wire. Using fluoroscopic guidance, the atrial lead was the placed into the right atrial appendage and screwed and secured in place. Electrical interrogation demonstrated acceptable thresholds and voltage number. The atrial lead was then secured into place using 3-0 silk. 1 gram of Ancef was used to flush the pocket. Following the pacemaker generator being secured to the fascia and in place, Monocryl was used to close the subcutaneous layers while nadine were used to close the cutaneous layer. A pressure dressing was placed and the patient was transferred to the postop holding area in stable condition for postoperative care. INTERROGATION Generator Model number: [employer] MRI [id number] Generator Serial number: [id number] Atrial lead model number: Tendril STS 2088TC/52 cm Atrial lead serial number: [id number] P-wave: >5.0 mV Impedence: 460 Ohms Threshold: 0.5V@0.4ms Right Ventricular lead model number: Rosas STS [id number]/58 cm Right Ventricular lead serial number: [id number] R-wave: 5.4 mV Impedence: 660 Ohms Threshold: 0.75V@0.4ms Pacing Parameters: Mode: DDDR Base/Max Track:60 ppm / 130 ppm No diaphragmatic stimulation at 10 volts. IMPRESSION 1. Successful pocket formation for Permanent Pacemaker Placement. 2. Successful placement of an atrial sensing and pacing coil into the right atrial appendage. 3. Successful placement of a ventricular sensing and pacing coil in the right ventricular apex. 4. Successful permanent Pacemaker Placement. PLAN 1. Post Op Wound Care Electronically signed by : Theodore Macario MD 01/01/2023 09:53:51
--- NOTE | 2022-12-27 02:04 | PC.NURSE ---
slab off mill tender consent is signed by pt and placed in chart.
[2022-12-27 06:24] LABS: Basophils % 0.5 % (0.1-2.0); Eosinophils # 0.1 K/mm3 (0.0-0.4); Eosinophils % 1.9 % (0.1-12.0); Hemoglobin 12.6 g/dL (14.1-18.0); Lymphocytes # 2.7 K/mm3 (0.7-4.5); Lymphocytes % 38.7 % (10-50); Mean Corpuscular Hemoglobin 29.2 pg (27.0-31.2); Mean Corpuscular Volume 88.4 fl (80-94); Mean Platelet Volume 7.9 fl (7.4-10.4); Monocytes # 0.5 K/mm3 (0.1-1.0); Monocytes % 6.7 % (1.7-9.3); Neutrophils # 3.6 K/mm3 (1.8-7.8); Neutrophils % 52.2 % (37.0-80.0); Platelet Count 179 K/mm3 (142-424); White Blood Count 6.9 K/mm3 (4.8-10.8)
[2022-12-27 06:37] LABS: Anion Gap 16.9 mEq/L (5-15); Blood Urea Nitrogen 23 mg/dl (9-20); Calcium 8.5 mg/dl (8.4-10.2); Carbon Dioxide 25 mmol/L (22.0-30.0); Chloride 102 mmol/L (98-107); Creatinine Clearance Estimated 77 mL/min (50-200); Estimated Glomerular Filt Rate 71 ml/min (>60); GFR (African American) 86 ML/MIN (>60); Glucose 105 mg/dl (74-100); Magnesium 1.9 mg/dl (1.6-2.3); Potassium 3.9 mmoL/L (3.5-5.1); Sodium 140 mmol/L (136-145)
--- NOTE | 2022-12-27 06:46 | PC.NURSE ---
Pt slept well through the night. No complaints reported to this RN.
--- NOTE | 2022-12-27 09:31 | HMH.PHAINT1 ---
Pharmacy Intervention Comments: MEDICATION RECONCILIATION COMPLETED ON PATIENT USING EXTERNAL FILL HISTORY FROM PHARMACY AND LIST FROM CARDIOLOGY OFFICE. -OPAL RUIZ, MAXIMED
--- NOTE | 2022-12-27 11:37 | EXP.CARD.CON ---
History of Present Illness History of Present Illness Consult date: 12/27/22 Requesting physician: Yandel Escalona Chief complaint: SOB, dizziness History of present illness: This is an 82-year-old white gentleman who was admitted to the hospital secondary to sinus bradycardia and a 6.6-second pause noted on his event monitor. The patient had previously been seen in cardiology clinic this past week. He had an event monitor on which showed second-degree AV block type I and II as well as sinus bradycardia. While he was in cardiology clinic he had marked sinus bradycardia with a heart rate in the 40s and first-degree AV block. The patient has been having shortness of breath and dizziness. He was set up for permanent pacemaker placement secondary to symptomatic bradycardia. Yesterday while in clinic the event monitor company called and the patient had a 6.6 second asystolic pause. The patient was contacted and advised to be admitted to the hospital secondary to his asystolic pauses and sick sinus syndrome and to proceed with permanent pacemaker placement this morning. Today he denies any chest pain or pressure. He does report shortness of breath with exertion. He states that he feels short of breath all the time. He also has dizziness when he is ambulating or exerting himself. This does improve with rest. He denies any fever, chills, nausea, vomiting, diarrhea, PND or orthopnea. He denies any lower extremity edema. The patient is bradycardic this morning with a heart rate in the 50s. [facility] Disclaimer: The information contained in this section may have been updated after the patient was seen, as this information can be updated by other users. Medical History (Updated 12/27/22 @ 11:43 by Makenzie Burns APRN) Allergic rhinitis, unspecified Angina, class IV Atrial fibrillation Atrial flutter Bradycardia CAD (coronary artery disease) Dizziness Dyspnea on exertion Fatigue First degree atrioventricular block by electrocardiogram Former smoker H/O restrictive lung disease History of 2019 novel coronavirus disease (COVID-19) History of cardioversion HLD (hyperlipidemia) HTN (hypertension) Second degree AV block, Mobitz type I Second degree AV block, Mobitz type II Sick sinus syndrome Sinus bradycardia SOB (shortness of breath) Symptomatic bradycardia Surgical History H/O arthroscopy of knee History of hemorrhoidectomy History of rotator cuff surgery Family History Other Heart attack Social History Smoking Status: Former smoker second hand exposure: No alcohol intake: never substance use type: denies use current occupational status: retired Travel in the last 8 weeks: None household members: spouse housing: house caffeine: No Review of Systems Review of Systems Review of systems:: pertinent systems reviewed and negative unless documented below Constitutional Constitutional: Reports system reviewed and no additional complaints, except as documented Eyes Eyes: Reports system reviewed and no additional complaints, except as documented ENT Ears, Nose, Mouth, and Throat: Reports system reviewed and no additional complaints, except as documented and Reports vertigo *Cardiovascular Cardiovascular: Reports system reviewed and no additional complaints, except as documented, Denies chest pain, Reports dyspnea, Reports dyspnea on exertion and Reports lightheadedness *Respiratory Respiratory: Reports system reviewed and no additional complaints, except as documented, Reports dyspnea and Reports dyspnea on exertion *Gastrointestinal Gastrointestinal: Reports system reviewed and no additional complaints, except as documented *Genitourinary Genitourinary: Reports system reviewed and no additional complaints, except as documented *Musculoskeletal Musculoskeletal: Reports system
--- NOTE | 2022-12-27 15:18 | XR_ITS ---
FINAL REPORT CLINICAL HISTORY: Confirm pacemaker/AID placement COMPARISON: 12/04/2022 FINDINGS: SINGLE VIEW CHEST Cardiomegaly is noted. A left subclavian pacer is noted. No evidence of pneumothorax is seen. No acute pulmonary abnormality is identified. The bony thorax is intact. IMPRESSION: No acute cardiopulmonary process identified. Reviewed, Interpreted and Dictated by Delvis Phillip III, MD Transcribed by Brandy Cook Authenticated and [facility]
--- NOTE | 2022-12-27 15:42 | P.PN_ITS ---
[facility] Disclaimer: The information contained in this section may have been updated after the patient was seen, as this information can be updated by other users. Medical History (Updated 12/27/22 @ 11:43 by Makenzie Burns APRN) Allergic rhinitis, unspecified Angina, class IV Atrial fibrillation Atrial flutter Bradycardia CAD (coronary artery disease) Dizziness Dyspnea on exertion Fatigue First degree atrioventricular block by electrocardiogram Former smoker H/O restrictive lung disease History of 2019 novel coronavirus disease (COVID-19) History of cardioversion HLD (hyperlipidemia) HTN (hypertension) Second degree AV block, Mobitz type I Second degree AV block, Mobitz type II Sick sinus syndrome Sinus bradycardia SOB (shortness of breath) Symptomatic bradycardia Surgical History H/O arthroscopy of knee History of hemorrhoidectomy History of rotator cuff surgery Family History Other Heart attack Social History Smoking Status: Former smoker second hand exposure: No alcohol intake: never substance use type: denies use current occupational status: retired Travel in the last 8 weeks: None household members: spouse housing: house caffeine: No [facility] Anesthesia Checklist Patient Identification Patient Identification: Arm Band Structural Data Admitted From: Inpatient Planned Operative Procedure/s: Placement of perrmament pacemaker. Consent for Planned Operative Procedure(s) Verified: Yes Verified Documents: Surgical Consent and History and Physical NPO Status Verified Time NPO: 00:00 Additional verifications Patient : No Anesthesia Reactions: No Hx Blood Transfusions: No Blood Transfusion Reaction: No Cephalosporin Allergy: No Previous Colonoscopy: No Airway Assessment C-Spine Mobility Assessed: Yes TMJ Mobility Assessed: Yes Dentition: Partials Neurological Assessment Level of Consciousness: Awake, Alert, Appropriate and Follows Commands Hx Seizures: No Numbness or tingling in extremities: No Anesthesia Plan Anesthesia Risk discussed: Yes ASA Class: III Anesthesia Type: MAC
--- NOTE | 2022-12-27 17:30 | EXP.DC.SUM ---
General Admission date:: 12/26/22 Discharge date: 12/27/22 HPI HPI HPI: Juan M Burgess is a 82 year old male with a past medical history of atrial fibrillation/flutter, hypertension and hyperlipidemia. He was seen in Cardiology clinic on 12/24 and was found to have second degree AV block type 1 and 2, sinus bradycardia with HR 49, dyspnea and a sinus pause he was to hold 3 doses of Eliquis and have a Dual chamber PPM placement on 12/27. I was notified that the patient had a 6.6 second sinus pause caught via remote cardiac monitoring; we will be admitting the patient to watch him overnight and Cardiology will place a PPM tomorrow. He has had exertional dyspnea but currently no dyspnea at rest. He denies chest pain, cough and fever. Hospital Course Hospital Course Hospital Course: Admitted and monitored with no issues. Recieved PPM on 12/27. Operative course uncomplicated, with no concerns post operative. Will follow up with cardiology outpatient Exam Data for Last 24 hours Vital signs and Labs for Last 24 Hours: Temp Pulse Resp BP Pulse Ox 98.2 F 60 12 119/69 91 L 12/27/22 12:00 12/27/22 16:00 12/27/22 15:25 12/27/22 15:25 12/27/22 15:25 Laboratory Results - last 24 hr 12/26/22 17:25: SARS-CoV-2 (PCR) Not detected, Influenza A Untype (PCR) Not detected, Influenza Type B (PCR) Not detected 12/27/22 06:06: WBC 6.9, RBC 4.30 L, Hgb 12.6 L, Hct 38.0 L, MCV 88.4, MCH 29.2, MCHC 33.0, RDW 15.0, Plt Count 179, MPV 7.9, Neut % (Auto) 52.2, Lymph % (Auto) 38.7, Wake % (Auto) 6.7, Eos % (Auto) 1.9, Baso % (Auto) 0.5, Neut # (Auto) 3.6, Lymph # (Auto) 2.7, Wake # (Auto) 0.5, Eos # (Auto) 0.1, Baso # (Auto) 0.0 12/27/22 06:06: Sodium 140, Potassium 3.9, Chloride 102, Carbon Dioxide 25, Anion Gap 16.9 H, BUN 23 H, Creatinine 1.00, Estimated Creat Clear 77, Estimated GFR 71, Est GFR ( Amer) 86, Glucose 105 H, Calcium 8.5, Magnesium 1.9 I & O for Last 24 hours: Intake & Output 12/24/22 12/25/22 12/26/22 12/27/22 23:59 23:59 23:59 23:59 Intake Total 240 / 240 Output Total 0 / 0 0 / 0 Balance 240 / 240 0 / 0 Weight 99.082 kg 97 kg Constitutional Constitutional: no acute distress and average body habitus *Routine HEENT Exam Head: Present normocephalic and atraumatic ENT: Present mucous membranes moist *Routine Neck Exam Neck: Present supple, full ROM and normal carotid upstroke; Absent JVD, carotid bruit or lymphadenopathy *Routine Respiratory Exam Respiratory: Present CTA bilaterally, normal respiratory effort, able to speak in complete sentences and symmetric chest movement *Routine Cardiovascular Exam Cardiovascular: Present RRR, Normal S1, Normal S2 and bradycardia; Absent murmur or gallop *Routine Abdominal Exam Abdominal: Present soft and normoactive bowel sounds; Absent tenderness, distended or organomegaly *Routine Extremities Exam Extremities: Present full ROM, pulses intact and normal capillary refill; Absent cyanosis, clubbing or edema *Routine Skin Exam Skin: Present intact and warm; Absent erythema *Routine Neurological Exam Neurological: Present alert, oriented X3 and CN II-XII intact; Absent sensory deficit or motor deficit Routine Psychiatric Exam Psychiatric: Present normal affect Results Data Completed and Pending Labs on day of discharge: Labs from last 24 hours 12/27/22 12/27/22 12/26/22 06:06 06:06 17:25 WBC 6.9 RBC 4.30 L Hgb 12.6 L Hct 38.0 L MCV 88.4 MCH 29.2 MCHC 33.0 RDW 15.0 Plt Count 179 MPV 7.9 Neut % (Auto) 52.2 Lymph % (Auto) 38.7 Wake % (Auto) 6.7 Eos % (Auto) 1.9 Baso % (Auto) 0.5 Neut # (Auto) 3.6 Lymph # (Auto) 2.7 Wake # (Auto) 0.5 Eos # (Auto) 0.1 Baso # (Auto) 0.0 Sodium 140 Potassium 3.9 Chloride 102 Carbon Dioxide 25 Anion Gap 16.9 H BUN 23 H Creatinine 1.00 Estimated Creat Clear 77 Estimated GFR 71 Est GFR ( Amer) 86 Glucose 105 H Calcium 8.5
--- NOTE | 2022-12-27 17:41 | PC.NURSE ---
A&OX4. TOLERATING RA WELL BEFORE AND AFTER PROCEDURE. TOLERATED PROCEDURE WELL. SITE TO LEFT UPPER CHEST CDI. DISCHARGE INSTRUCTIONS PROVIDED, PT AND FAMILY V/U. VSS.
--- NOTE | 2022-12-31 13:28 | CARE MANAGER ---
spoke with patient for post-discharge phone interview, no issues noted. Patient has medications and follow-up appointments.
== END 2022-12-27 17:40 | disposition home or self-care (01) | DRG 244 ==
PROVIDERS: Internal Medicine; Admitting Provider Internal Medicine; PCP Nurse Practitioner Family; Visit Provider Internal Medicine
PROC: 0JH606Z Insertion of Pacemaker, Dual Chamber into Chest Subcutaneous Tissue and Fascia, Open Approach (ICD-10-PCS; principal; 2022-12-27 10:00)
DX: I44.2 Atrioventricular block, complete (principal); I48.0 Paroxysmal atrial fibrillation; Z79.01 Long term (current) use of anticoagulants; I49.5 Sick sinus syndrome; I10 Essential (primary) hypertension; E78.5 Hyperlipidemia, unspecified; I25.10 Atherosclerotic heart disease of native coronary artery without angina pectoris; Z79.82 Long term (current) use of aspirin; Z87.891 Personal history of nicotine dependence
CPT/HCPCS: 33208; 36415; 71045; 80048; 83735; 85025; 87636; C1785; C1898; C9803; J2704; Q9967; U0003; U0005

== ENCOUNTER → 2023-04-08 11:51 | Outpatient (CLI) | payer MEDICARE, SELFPAY ==
--- NOTE | 2023-04-08 11:56 | CA_ITS ---
APPROVED REPORT EXAM: Limited 2D Echocardiogram Animal Feeder: Radha Serrano RT(R) Ht: 5 ft 7 in Wt: 220lbs BSA: 2.11 BP: 121/84 mmHg Indications: SOA,EF CHECK,PACER,CAD,HTN,HLD,A-FIB,FATIGUE,BRADYCARDIA M-Mode Dimensions RVDd 2.05 cm (0.9-2.6) LA Diam 4.16 cm (1.9-4.0) LVDd 4.91 cm (3.5-5.7) Ao Diam 3.59 cm (2.0-3.7) LVDs 3.86 cm (3.5-5.7) IVSd 0.89 cm (0.6-1.1) PWd 1.01 cm (0.6-1.1) EF (Teich) 43.30% FS 21.40% EDV (Teich) 113.40 mL ESV (Teich) 64.30 mL LV Diastology E Decel Time 150.00 (160-240 msec) E/A Ratio 0.5 MED E' 4.60 (< 7 cm/sec) E'/MED E' Ratio 10.89 (>14) LAT E' 5.00 (<10 cm/sec) E/LAT E' Ratio 10.02 (>14) Mitral Valve MV E Max Anastacio. 50.00 (40-130 cm/s) MV A Velocity 94.00 (40-130 cm/s) E/A Ratio 0.54 MV Decel. Time 150.00 (160-240 ms) MV PHT 44.00 ms Tricuspid Valve TR P. Velocity 184.00 cm/s RAP Estimate 15.00 mmHg RVSP 28.60 mmHg Other Information Study Quality: Adequate Conclusion This is a limited TTE to evaluate for LVEF. The left ventricle appears normal in size and function. There is normal LV wall motion with no evidence of regional wall motion abnormalities. LVEF is 55%. Grossly, the right ventricle appears normal in size and function. Electronically signed by : Maryann Loza, 04/08/2023 20:03:09
== END ==
PROVIDERS: PCP Nurse Practitioner Family; Visit Provider Internal Medicine
DX: I10 Essential (primary) hypertension (principal); I25.10 Atherosclerotic heart disease of native coronary artery without angina pectoris; I44.0 Atrioventricular block, first degree; I48.0 Paroxysmal atrial fibrillation; R00.1 Bradycardia, unspecified; R06.02 Shortness of breath; Z87.891 Personal history of nicotine dependence; Z95.0 Presence of cardiac pacemaker
CPT/HCPCS: 93308

== ENCOUNTER 2023-12-22 11:41 | Outpatient (CLI) | payer MEDICARE, SELFPAY ==
[2023-12-22 12:03] LABS: Basophils # 0.1 K/mm3 (0-0.2); Basophils % 0.6 % (0.1-2.0); Eosinophils # 0.1 K/mm3 (0.0-0.4); Eosinophils % 1.2 % (0.1-12.0); Hematocrit 40.5 % (42.0-52.0); Hemoglobin 12.9 g/dL (14.1-18.0); Lymphocytes # 3.4 K/mm3 (0.7-4.5); Mean Corpuscular HGB Conc 31.9 g/dL (31.8-35.4); Mean Corpuscular Hemoglobin 30.2 pg (27.0-31.2); Mean Corpuscular Volume 94.6 fl (80-94); Mean Platelet Volume 7.1 fl (7.4-10.4); Monocytes # 0.5 K/mm3 (0.1-1.0); Monocytes % 5.9 % (1.7-9.3); Neutrophils # 4.9 K/mm3 (1.8-7.8); Neutrophils % 54.4 % (37.0-80.0); Platelet Count 189 K/mm3 (142-424); Red Blood Count 4.28 M/mm3 (4.60-6.20); Red Cell Distribution Width 15.3 % (11.5-17.5); White Blood Count 9.1 K/mm3 (4.8-10.8)
[2023-12-22 12:51] LABS: Chloride 110 mmol/L (98-107)
[2023-12-22 12:52] LABS: Potassium 3.9 mmoL/L (3.5-5.1); Sodium 142 mmol/L (136-145)
[2023-12-22 12:54] LABS: Alanine Aminotransferase 26 U/L (12-78); Anion Gap 11.9 mEq/L (5-15); Aspartate Amino Transferase 26 U/L (17-59); Bilirubin,Unconjugated 0.6 mg/dL (0.0-1.1); Blood Urea Nitrogen 12 mg/dl (9-20); Carbon Dioxide 24 mmol/L (22.0-30.0); Cholesterol 124 mg/dl (140-200); Estimated Glomerular Filt Rate 64 ml/min (>60); GFR (African American) 77 ML/MIN (>60); Triglycerides 138 mg/dl (30-150); VLDL Cholesterol 28 mg/dL (0-40)
[2023-12-22 12:55] LABS: Alkaline Phosphatase 75 U/L (38-126); Bilirubin,Indirect 0.6 mg/dL (0.0-0.9); Bilirubin,Total 0.6 mg/dl (0.2-1.3); Calcium 9.2 mg/dl (8.4-10.2); Chol/HDL Ratio 2.3 (1-3.5); Glucose 103 mg/dl (74-100); HDL Cholesterol 54 mg/dl (40-60); Magnesium 1.8 mg/dl (1.6-2.3); Total Protein,Serum 6.6 g/dl (6.3-8.2)
[2023-12-22 13:06] LABS: Direct LDL Cholesterol 52.74 mg/dL (100-129)
[2023-12-22 14:03] LABS: Free T4 (Free Thyroxine) 0.82 ng/dl (0.78-2.19)
== END 2023-12-22 23:59 | disposition home or self-care (01) ==
LOC: LAB 11:42
PROVIDERS: PCP Nurse Practitioner Family; Visit Provider Nurse Practitioner
DX: I48.0 Paroxysmal atrial fibrillation (principal); I11.9 Hypertensive heart disease without heart failure; I25.10 Atherosclerotic heart disease of native coronary artery without angina pectoris; R06.02 Shortness of breath; Z87.891 Personal history of nicotine dependence; Z95.0 Presence of cardiac pacemaker
CPT/HCPCS: 36415; 80048; 80061; 80076; 83735; 84439; 84443; 85025

== ENCOUNTER 2024-01-02 07:47 | Outpatient (CLI) | payer MEDICARE, SELFPAY ==
--- NOTE | 2024-01-02 07:48 | CA_ITS ---
APPROVED REPORT EXAM: Comprehensive 2D, Doppler, and color-flow Echocardiogram Steamer Operator: Jimena William CRT Ht: 5 ft 7 in Wt: 227lbs BSA: 2.13 BP: 138/73 mmHg Indications: Shortness of Breath, Atrial Fibrillation, Hyperlipidemia, Hypertension/HDD, Pacer 2D Dimensions LA Volume 43.60 mL LA Volume Index 20.37 mL/m2 (M/F) 16-34 M-Mode Dimensions RVDd 2.97 cm (0.9-2.6) LA Diam 3.70 cm (1.9-4.0) LVDd 5.01 cm (3.5-5.7) LVDs 3.33 cm (3.5-5.7) IVSd 1.68 cm (0.6-1.1) PWd 1.18 cm (0.6-1.1) EF (Teich) 62.00% FS 33.50% EDV (Teich) 118.80 mL TAPSE 2.38 (<1.7) ESV (Teich) 45.10 mL LV Diastology E Decel Time 227 (160-240 msec) E/A Ratio 0.59 MED A' 12.10 cm/s LAT A' 16.90 cm/s Aortic Valve AI PHT 587.00 ms AO Peak GR. 10.10 mmHg Mitral Valve MV A Velocity 99.0 (40-130 cm/s) E/A Ratio 0.59 Pulmonary Valve PV Peak Velocity 112.0 (50-150 cm/s) Tricuspid Valve TR P. Velocity 296.00 cm/s RAP Estimate 10.00 mmHg RVSP 45.00 mmHg Left Ventricle The left ventricle is normal size. The left ventricular systolic function is normal. The left ventricular ejection fraction is within the normal range. There is increased LV wall thickness. Grade 2 diastolic dysfunction. LVEF is 55%. Right Ventricle The right ventricle is mildly dilated. The right ventricular systolic function is normal. Atria Left atrium is mildly dilated. Right atrium is mildly dilated. There is no Doppler evidence of interatrial shunt. Aortic Valve Aortic valve is mildly thickened. There is no aortic valvular stenosis. Mild aortic regurgitation. Mitral Valve The mitral valve leaflets are mildly thickened. No evidence of mitral valve stenosis. Mild mitral regurgitation. Tricuspid Valve The tricuspid valve leaflets are thin and pliable. Mild tricuspid regurgitation. RVSP 20-25 mmHg Pulmonic Valve The pulmonary valve is normal in structure. Trace pulmonic regurgitation. Great Vessels The aortic root is normal in size. The ascending aorta is normal in size. IVC is normal in size and collapses >50% with inspiration. Pericardium There is no pericardial effusion. Other Information Study Quality: Fair Conclusion Normal LV systolic function. Grade 2 diastolic dysfunction. Mild RV dilation with normal RV function. Mild biatrial dilation. Mild AI, mild MR, mild TR. Electronically signed by : Maryann Loza MD 01/08/2024 00:13:12
== END 2024-01-02 23:59 | disposition home or self-care (01) ==
LOC: RT 07:48
PROVIDERS: PCP Nurse Practitioner Family; Visit Provider Nurse Practitioner
DX: Z95.0 Presence of cardiac pacemaker (principal); I48.0 Paroxysmal atrial fibrillation; I25.10 Atherosclerotic heart disease of native coronary artery without angina pectoris; I10 Essential (primary) hypertension; R06.02 Shortness of breath; Z87.891 Personal history of nicotine dependence
CPT/HCPCS: 93306

== ENCOUNTER 2024-02-02 11:49 | Outpatient (CLI) | payer MEDICARE, SELFPAY ==
[2024-02-02 12:51] LABS: Chloride 105 mmol/L (98-107)
[2024-02-02 12:52] LABS: Potassium 4.7 mmoL/L (3.5-5.1); Sodium 137 mmol/L (136-145)
[2024-02-02 12:54] LABS: Blood Urea Nitrogen 34 mg/dl (9-20)
[2024-02-02 12:55] LABS: Anion Gap 14.7 mEq/L (5-15); Calcium 9.2 mg/dl (8.4-10.2); Carbon Dioxide 22 mmol/L (22.0-30.0); Estimated Glomerular Filt Rate 41 ml/min (>60); GFR (African American) 50 ML/MIN (>60); Glucose 129 mg/dl (74-100)
== END 2024-02-02 23:59 | disposition home or self-care (01) ==
LOC: LAB 11:50
PROVIDERS: PCP Nurse Practitioner Family; Visit Provider Nurse Practitioner
DX: I48.0 Paroxysmal atrial fibrillation (principal); I49.5 Sick sinus syndrome; I25.10 Atherosclerotic heart disease of native coronary artery without angina pectoris; Z95.0 Presence of cardiac pacemaker; Z79.01 Long term (current) use of anticoagulants; I10 Essential (primary) hypertension; R06.02 Shortness of breath; Z87.891 Personal history of nicotine dependence
CPT/HCPCS: 36415; 80048

== ENCOUNTER 2024-02-13 07:12 | Outpatient (CLI) | payer MEDICARE, SELFPAY ==
--- NOTE | 2024-02-13 07:15 | NM_ITS ---
APPROVED REPORT Exam: Nuclear Stress Test Indication: CAD, 1 STENT, HTN, SOB, FATIGUE Patient Location: Outpatient Stress Tech: Sudha ZAVALA Tech:Gayatri TorresDUSTIN RT (R)(N)(M) Ht: 5 ft 7 in Wt: 210 lbs HR: 80 bpm BP: 127/77 mmHg BSA: 2.07 m2 TID: 1.10 BMI: 32.8 Procedure: Patient received 0.4 mg of intravenous Lexiscan, resting heart rate 80 bpm, resting blood pressure 128/77 mmHg, with Lexiscan maximum heart rate achieved was 80 bpm which is % of the maximum predicted heart rate and blood pressure was 96/54 mmHg. With Lexiscan, patient denied any complaint of chest pain. Cardiac Stress and Resting SPECT Images: Cardiac Stress and Resting SPECT images were obtained using technetium 99m Myoview 30.7 mCi stress and 10.43 mCi at rest. Resting and stress imaging in supine and prone positions demonstrate a large sized, moderate, predominantly fixed perfusion defect in the inferior LV wall from the base and extending distally towards the inferoapical region. There is a small territory of reversible ischemia in the surrounding region. Gated imaging demonstrates low normal global LV systolic function. There is mild hypokinesis of the inferior and inferoapical LV barrera. LVEF is calculated at 52%. Conclusion: Large sized, moderate, predominantly fixed perfusion defect in the inferior LV wall from the base and extending distally towards the inferoapical region. There is a small territory of reversible ischemia in the surrounding region. Gated imaging demonstrates low normal global LV systolic function. There is mild hypokinesis of the inferior and inferoapical LV barrera. LVEF is calculated at 52%. Electronically signed by : Maryann Loza MD 02/15/2024 12:27:31
[2024-02-13] MEDS: SODIUM CHLORIDE 0.9% 10ML SYR (RAD ONLY) 10 ML IV ×2 (07:25→08:45)
[2024-02-13] MEDS: REGADENOSON 0.4MG/5ML SYRINGE 0.4 MG IV (08:45)
[2024-02-13] MEDS: ISOTOPE MYOVIEW (PER STUDY) 1 DOSE IV (09:19)
== END 2024-02-13 23:59 | disposition home or self-care (01) ==
LOC: RAD 07:13
PROVIDERS: PCP Nurse Practitioner Family; Visit Provider Nurse Practitioner
DX: R06.02 Shortness of breath (principal); I11.9 Hypertensive heart disease without heart failure; I25.10 Atherosclerotic heart disease of native coronary artery without angina pectoris; Z79.01 Long term (current) use of anticoagulants; I49.5 Sick sinus syndrome; I48.0 Paroxysmal atrial fibrillation; Z95.0 Presence of cardiac pacemaker; Z87.891 Personal history of nicotine dependence
CPT/HCPCS: 78452; 93017; 93018; A9502; J2785

== ENCOUNTER 2024-03-09 21:50 | Emergency (ER) | payer MEDICARE, SELFPAY ==
[2024-03-09] VITALS (7 sets, daily range): BP systolic 94–129; BP diastolic 55–74; PULSE 80–82; RESP 14–21; TEMP 37.1; O2SAT 93–97; BMI 33.6
--- NOTE | 2024-03-09 21:49 | ECG_ITS ---
APPROVED REPORT Exam: Resting ECG HR:80 bpm ECG Measurements Heart Rate 80 AXES ID 248 P 173 QRSd 153 QRS -72 QT 403 T 99 QTc 439 Conclusion ELECTRONIC ATRIAL PACEMAKER ELECTRONIC VENTRICULAR PACEMAKER ABNORMAL RHYTHM ECG No STEMI Electronically signed by : JO BAUTISTA, 03/10/2024 03:28:03
--- NOTE | 2024-03-09 22:07 | ED_ITS ---
<Statement entered by Lauro Gandhi MD - 03/09/24 23:15> I was consulted by the REID, and we discussed the complexity of the problems being addressed. I approved the treatment and management plan for this patient's care in the emergency department, thus performing a substantive portion of the medical decision making. Lauro Gandhi MD Discharge Plan Disposition Patient Disposition: Home, Self-Care Condition: Good Prescriptions Prescriptions: No Action amlodipine 10 mg tablet 10 mg PO DAILY alfuzosin 10 mg tablet extended release 24 hr 10 mg PO DAILY ergocalciferol (vitamin D2) 50,000 unit capsule 50,000 unit PO WEEKLY hydralazine 50 mg tablet 50 mg PO TID metoprolol tartrate 25 mg tablet 25 mg PO BID Qty: 180 3RF spironolactone [Aldactone] 25 mg tablet 25 mg PO DAILY Qty: 30 2RF Eliquis 5 mg tablet 0RF losartan-hydrochlorothiazide 100-12.5 mg tablet 1 tab PO DAILY Qty: 90 2RF finasteride 5 MG tablet 5 mg PO DAILY escitalopram oxalate 10 MG tablet 10 mg PO DAILY furosemide 40 MG tablet 40 mg PO DAILY montelukast 10 MG tablet 10 mg PO PM apixaban 5 MG tablet 5 mg PO BID atorvastatin 40 mg tablet 40 mg PO DAILY aspirin 81 mg Tablet,Delayed Release (Dr/Ec) 81 mg PO DAILY albuterol sulfate 90 mcg/actuation HFA aerosol inhaler 2 inh INHALATION Q8HP PRN (Reason: Shortness Of Breath) Patient Comments: INHALE 2 PUFFS BY MOUTH EVERY 8 HOURS NEEDED FOR 7 DAYS omeprazole 40 mg capsule,delayed release(DR/EC) 40 mg PO DAILY oxycodone-acetaminophen 5-325 mg Tablet 1 ea PO Q4HP PRN (Reason: Moderate Pain) 3 Days Qty: 18 0RF Referrals Follow up/Referrals: Provider,Referral, [Referring] - See instructions Activity Restrictions/Add. Instructions Additional Instructions/Restrictions: You were evaluated in the ER. You are appropriate for discharge at this time. Make an appointment with your primary care physician to be seen again in 1 to 2 days to discuss your decreasing kidney function. Also follow-up with your energy professional as soon as possible to discuss your chest pain and kidney function. Return to the ER with new, worsening, or otherwise concerning symptoms. Clinical Impressions Clinical Impression: Right-sided chest pain, Creatinine elevation Print Language Print Language: [place] Discharge ED Provider: Lauro Gandhi HPI <GEOVANNA Austin - Last Filed: 03/09/24 23:00> General Chief Complaint: Chest Pain Stated Complaint: CP Time Seen by Provider: 03/09/24 21:56 Mode of Arrival: Ambulatory Source of Information: Patient Limitations: No Limitations Description of Symptoms (Recalled from ER Triage Doc. by RN): Pt ambulatory to ED with c/o sharp, localized, intermittent, 6/10, right sided CP that started 4- 5 hours ago while walking around in tractor supply.Pt reports he has a pace maker, is on eliquis for A fib, has never had an IA, or cardiac stents. History of Present Illness HPI narrative: Patient presents for evaluation of chest pain. Patient states that he has had sharp stabbing right sided chest pain intermittently since 330 this afternoon. He states the pain does not last very long goes away but comes back. He states that is more on than off hence he presented to the emergency department for evaluation. He denies recent illness chest pain on the right side of his chest difficulty breathing fever chills hemoptysis hematochezia melena nausea vomiting diarrhea. He does have history of a cardiac pacemaker and history of 1 stent previously. He has had a previous cholecystectomy. He does not drink or smoke. Related Data Home Medications ?Medication ?Instructions ?Recorded ?Confirmed alfuzosin 10 mg tablet,extended 10 mg PO DAILY URINARY RETENTION 04/13/18 02/02/24 release 24 hr amlodipine 10 mg tablet 10 mg PO DAILY Hypertension 04/13/18 02/02/24 ergocalciferol (vitamin D2) 1,250 50,000 unit PO WEEKLY Supplement 04/13/18 02/02/24 mcg (50,000 unit) capsule apixaban 5 mg tablet 5 mg PO BID Blood thinner-AFIB 05/21/18 02/02/24 escitalopram oxalate 10 mg tablet 10 mg PO DAILY Depression 06/04/20 02/02/24 finasteride 5 mg tablet 5 mg PO DAILY PROSTATE 06/04/20 02/02/24 furosemide 40 mg tablet 40 mg PO DAILY Fluid 06/04/20 02/02/24 montelukast 10 mg tablet 10 mg PO PM Allergy symptoms 06/05/20 02/02/24 hydralazine 50 mg tablet 50 mg PO TID Hypertension 12/05/22 02/02/24 atorvastatin 40 mg tablet 40 mg PO DAILY Cholesterol 12/26/22 02/02/24 albuterol sulfate 90 mcg/actuation 2 inh inhalation Q8HP PRN 12/27/22 02/02/24 aerosol inhaler Shortness Of Breath aspirin 81 mg tablet,delayed 81 mg PO DAILY HEART HEALTH 12/27/22 02/02/24 release omeprazole 40 mg capsule,delayed 40 mg PO DAILY Acid reflux 12/27/22 02/02/24 release Previous Rx's ?Medication ?Instructions ?Recorded oxycodone-acetaminophen 5 mg-325 1 ea PO Q4HP PRN Moderate Pain 3 12/27/22 mg tablet days #18 tabs metoprolol tartrate 25 mg tablet 25 mg PO BID #180 tabs 05/13/23 spironolactone 25 mg tablet 25 mg PO DAILY #30 tabs 01/12/24 (Aldactone) losartan 100 1 tab PO DAILY #90 tabs 02/09/24 mg-hydrochlorothiazide 12.5 mg tablet Allergies Allergy/AdvReac Type Severity Reaction Status Date / Time No Known Allergies Allergy Verified 02/02/24 10:47 [facility] <GEOVANNA Austin - Last Filed: 03/09/24 23:00> [facility] Disclaimer: The information contained in this section may have been updated after the patient was seen, as this information can be updated by other users. Medical History (Updated 03/10/24 @ 01:09 by Ramandeep Parker MD) Elevated serum creatinine Cardiac pacemaker in situ Symptomatic bradycardia Sick sinus syndrome Sinus bradycardia First degree atrioventricular block by electrocardiogram Second degree AV block, Mobitz type II Second degree AV block, Mobitz type I Allergic rhinitis, unspecified H/O restrictive lung disease History of cardioversion History of 2019 novel coronavirus disease (COVID-19) Dyspnea on exertion Atrial fibrillation HLD (hyperlipidemia) CAD (coronary artery disease) Dizziness Fatigue Angina, class IV Atrial flutter Bradycardia Former smoker SOB (shortness of breath) HTN (hypertension) Surgical History History of hemorrhoidectomy History of rotator cuff surgery H/O arthroscopy of knee Family History Other Heart attack Social History Smoking Status: Former smoker second hand exposure: No alcohol intake: never substance use type: denies use current occupational status: retired Travel in the last 8 weeks: None household members: spouse housing: house caffeine: No <GEOVANNA Austin - Last Filed: 03/09/24 23:00> ROS Obtained: Yes Systems reviewed as appropriate & no additional complaints except as documented Physical Exam <GEOVANNA Austin - Last Filed: 03/09/24 23:00> General General appearance: alert and in no apparent distress Respiratory Respiratory exam: Present normal lung sounds bilaterally; Absent respiratory distress or wheezes Cardiovascular Cardiovascular exam: Present regular rate, normal rhythm and normal heart sounds Abdominal Exam Abdominal exam: Present soft and normal bowel sounds; Absent tenderness Neurological Exam Neurological exam: Present alert and oriented X3 HEART Score <GEOVANNA Austin - Last Filed: 03/09/24 23:00> HEART Score HEART Score assessment performed?: Yes History (anamnesis): Slightly suspicious ECG: Non-specific disturbance Age: >65 years Risk factors: Atherosclerosis history Troponin: </= normal limit HEART Score: 5 <Ramandeep Parker MD - Last Filed: 03/10/24 01:19> HEART Score HEART Score: 5 Critical Care <GEOVANNA Austin - Last Filed: 03/09/24 23:00> Critical Care Time Critical Care Time: No Medical Decision Making <GEOVANNA Austin - Last Filed: 03/09/24 23:00> Medical Records Medical records reviewed: Yes I reviewed the patient's medical records. [place] Inquiry Pt receiving controlled substance: No Vital Signs Vital Signs: 03/09/24 21:50 03/09/24 22:00 03/09/24 22:04 Temperature 98.7 F Temperature Source Oral Pulse Rate 80 80 Pulse Rate [Left Radial] 80 Respiratory Rate 20 14 Blood Pressure 107/66 L Blood Pressure [Right Arm] 126/70 Blood Pressure Mean [Right Arm] 88 Blood Pressure Source [Right Arm] Automatic Cuff Blood Pressure Position [Right Arm] Sitting 02 Sat by Pulse Oximetry 97 97 Oxygen Delivery Method Room Air 03/09/24 22:30 03/09/24 23:01 03/09/24 23:32 Temperature Temperature Source Pulse Rate 82 80 80 Pulse Rate [Left Radial] Respiratory Rate 21 18 15 Blood Pressure 129/74 105/60 L 94/72 L Blood Pressure [Right Arm] Blood Pressure Mean [Right Arm] Blood Pressure Source [Right Arm] Blood Pressure Position [Right Arm] 02 Sat by Pulse Oximetry 96 94 L 93 L Oxygen Delivery Method 03/09/24 23:51 03/10/24 00:30 03/10/24 01:00 Temperature Temperature Source Pulse Rate 81 80 81 Pulse Rate [Left Radial] Respiratory Rate 18 16 14 Blood Pressure 105/55 L 110/60 122/67 Blood Pressure [Right Arm] Blood Pressure Mean [Right Arm] Blood Pressure Source [Right Arm] Blood Pressure Position [Right Arm] 02 Sat by Pulse Oximetry 94 L 96 96 Oxygen Delivery Method Lab Data Lab results reviewed: Yes I reviewed the patient's lab results. Labs: Lab Results 03/09/24 21:57: WBC 8.0, RBC 4.14 L, Hgb 12.5 L, Hct 39.0 L, MCV 94.2 H, MCH 30.1, MCHC 32.0, RDW 15.0, Plt Count 185, MPV 7.2 L, Neut % (Auto) 45.7, Lymph % (Auto) 44.5, [place] % (Auto) 7.4, Eos % (Auto) 1.8, Baso % (Auto) 0.7, Neut # (Auto) 3.6, Lymph # (Auto) 3.6, [place] # (Auto) 0.6, Eos # (Auto) 0.1, Baso # (Auto) 0.1, Sodium 135 L, Potassium 5.0, Chloride 105, Carbon Dioxide 20 L, Anion Gap 15.0, BUN 38 H, Creatinine 2.20 H, Estimated Creat Clear 34, Estimated GFR 29 L, Est GFR ( Amer) 35 L, Glucose 104 H, Calcium 8.6, Total Bilirubin 0.5, AST 28, ALT 25, Alkaline Phosphatase 64, Troponin I < 0.01, NT-Pro-B Natriuret Pep 135, Total Protein 7.1, Albumin 4.2, Globulin 2.9, Albumin/Globulin Ratio 1.4, Lipase 59 03/10/24 00:30: Troponin I < 0.01 03/09/24 21:57 03/09/24 21:57 Response Orders (Tests/Meds): ED MEDICATIONS Discontinued Medications Generic Name Dose Route Start Last Admin Trade Name [place]roy PRN Reason Stop Dose Admin Acetaminophen 1,000 mg 03/09/24 22:08 03/09/24 22:16 Acetaminophen 1,000mg/100ml Vial IV 03/09/24 22:09 1,000 mg ONCE ONE Administration Aspirin 324 mg 03/09/24 22:15 03/09/24 22:17 Aspirin 81mg Chewable Tablet PO 03/09/24 22:16 324 mg ONCE ONE Administration Belladonna Alkaloids 60 ml 03/09/24 22:08 03/09/24 22:16 Belladonna Alkaloids 60 Ml Ml PO 03/09/24 22:09 60 ml ONCE ONE Administration Sodium Chloride 1,000 mls @ 999 mls/hr 03/09/24 22:08 03/09/24 22:16 Sod Chlor 0.9% 1000ml Bag IV 03/09/24 23:08 999 mls/hr .Q1H1M ONE Administration Ketorolac Tromethamine 15 mg 03/09/24 22:08 03/09/24 22:16 Ketorolac 30mg/Ml Vial IV 03/09/24 22:09 15 mg ONCE ONE Administration ORDERS Category Date Time Status Chest XR 2 view (NOT portable) [XR chest 2V] Stat Exams 03/09/24 22:08 Completed BNP [NT Pro Brain Natriuretic Pep.] Stat Lab 03/09/24 21:57 Completed CBC w/Auto Diff [Complete Blood Count Auto Diff] Stat Lab 03/09/24 21:57 Completed CMP [Comprehensive Metabolic Panel] Stat Lab 03/09/24 21:57 Completed Lipase Stat Lab 03/09/24 21:57 Completed Trop I [Troponin I] Stat Lab 03/09/24 21:57 Completed Troponin I Q3H Lab 03/10/24 00:30 Completed Troponin I Q3H Lab 03/10/24 04:15 Ordered MDM Narrative Medical Decision Narrative: In summary patient is a 83-year-old male who presents to the emergency department for evaluation of right-sided chest pain. Patient is hemodynamically stable upon arrival, afebrile. Physical exam is remarkable for nonreproducible right-sided chest pain present at the time of my exam. Breath sounds are clear and equal bilaterally. Patient has no back pain dysuria abdominal pain rebound or guarding or rigidity. Bowel sounds normal active.. Differential diagnosis includes ACS versus esophageal spasm versus musculoskeletal spasm etc. Initial workup will be conducted with hematologic labs twelve-lead EKG plain film chest x-ray. Initial interventions include crystalloid bolus Toradol Tylenol GI cocktail. Initial workup reviewed by me and his troponin is undetectable however patient has a creatinine of 2.2 with a BUN of 30 and a GFR of 29 which appears to be worsening since February 02, 2024.. Plan will be for second troponin and 48-hour follow-up for recheck of his creatinine at the time of handoff to Dr. Parker at 2300 hrs. <Lauro Gandhi MD - Last Filed: 03/09/24 22:19> Vital Signs Vital Signs: 03/09/24 21:50 03/09/24 22:00 03/09/24 22:04 Temperature 98.7 F Temperature Source Oral Pulse Rate 80 80 Pulse Rate [Left Radial] 80 Respiratory Rate 20 14 Blood Pressure 107/66 L Blood Pressure [Right Arm] 126/70 Blood Pressure Mean [Right Arm] 88 Blood Pressure Source [Right Arm] Automatic Cuff Blood Pressure Position [Right Arm] Sitting 02 Sat by Pulse Oximetry 97 97 Oxygen Delivery Method Room Air 03/09/24 22:30 03/09/24 23:01 03/09/24 23:32 Temperature Temperature Source Pulse Rate 82 80 80 Pulse Rate [Left Radial] Respiratory Rate 21 18 15 Blood Pressure 129/74 105/60 L 94/72 L Blood Pressure [Right Arm] Blood Pressure Mean [Right Arm] Blood Pressure Source [Right Arm] Blood Pressure Position [Right Arm] 02 Sat by Pulse Oximetry 96 94 L 93 L Oxygen Delivery Method 03/09/24 23:51 03/10/24 00:30 03/10/24 01:00 Temperature Temperature Source Pulse Rate 81 80 81 Pulse Rate [Left Radial] Respiratory Rate 18 16 14 Blood Pressure 105/55 L 110/60 122/67 Blood Pressure [Right Arm] Blood Pressure Mean [Right Arm] Blood Pressure Source [Right Arm] Blood Pressure Position [Right Arm] 02 Sat by Pulse Oximetry 94 L 96 96 Oxygen Delivery Method Lab Data Labs: Lab Results 03/09/24 21:57: WBC 8.0, RBC 4.14 L, Hgb 12.5 L, Hct 39.0 L, MCV 94.2 H, MCH 30.1, MCHC 32.0, RDW 15.0, Plt Count 185, MPV 7.2 L, Neut % (Auto) 45.7, Lymph % (Auto) 44.5, [place] % (Auto) 7.4, Eos % (Auto) 1.8, Baso % (Auto) 0.7, Neut # (Auto) 3.6, Lymph # (Auto) 3.6, [place] # (Auto) 0.6, Eos # (Auto) 0.1, Baso # (Auto) 0.1, Sodium 135 L, Potassium 5.0, Chloride 105, Carbon Dioxide 20 L, Anion Gap 15.0, BUN 38 H, Creatinine 2.20 H, Estimated Creat Clear 34, Estimated GFR 29 L, Est GFR ( Amer) 35 L, Glucose 104 H, Calcium 8.6, Total Bilirubin 0.5, AST 28, ALT 25, Alkaline Phosphatase 64, Troponin I < 0.01, NT-Pro-B Natriuret Pep 135, Total Protein 7.1, Albumin 4.2, Globulin 2.9, Albumin/Globulin Ratio 1.4, Lipase 59 03/10/24 00:30: Troponin I < 0.01 Response Orders (Tests/Meds): ED MEDICATIONS Discontinued Medications Generic Name Dose Route Start Last Admin Trade Name Freq PRN Reason Stop Dose Admin Acetaminophen 1,000 mg 03/09/24 22:08 03/09/24 22:16 Acetaminophen 1,000mg/100ml Vial IV 03/09/24 22:09 1,000 mg ONCE ONE Administration Aspirin 324 mg 03/09/24 22:15 03/09/24 22:17 Aspirin 81mg Chewable Tablet PO 03/09/24 22:16 324 mg ONCE ONE Administration Belladonna Alkaloids 60 ml 03/09/24 22:08 03/09/24 22:16 Belladonna Alkaloids 60 Ml Ml PO 03/09/24 22:09 60 ml ONCE ONE Administration Sodium Chloride 1,000 mls @ 999 mls/hr 03/09/24 22:08 03/09/24 22:16 Sod Chlor 0.9% 1000ml Bag IV 03/09/24 23:08 999 mls/hr .Q1H1M ONE Administration Ketorolac Tromethamine 15 mg 03/09/24 22:08 03/09/24 22:16 Ketorolac 30mg/Ml Vial IV 03/09/24 22:09 15 mg ONCE ONE Administration ORDERS Category Date Time Status Chest XR 2 view (NOT portable) [XR chest 2V] Stat Exams 03/09/24 22:08 Completed BNP [NT Pro Brain Natriuretic Pep.] Stat Lab 03/09/24 21:57 Completed CBC w/Auto Diff [Complete Blood Count Auto Diff] Stat Lab 03/09/24 21:57 Completed CMP [Comprehensive Metabolic Panel] Stat Lab 03/09/24 21:57 Completed Lipase Stat Lab 03/09/24 21:57 Completed Trop I [Troponin I] Stat Lab 03/09/24 21:57 Completed Troponin I Q3H Lab 03/10/24 00:30 Completed Troponin I Q3H Lab 03/10/24 04:15 Ordered ECG Data Tracing #1: ECG Narrative: Independently interpreted by me rate is 80, rhythm is AV paced, no ST elevation in anatomical contiguous leads, QTc 439. <Ramandeep Parker MD - Last Filed: 03/10/24 01:19> Vital Signs Vital Signs: 03/09/24 21:50 03/09/24 22:00 03/09/24 22:04 Temperature 98.7 F Temperature Source Oral Pulse Rate 80 80 Pulse Rate [Left Radial] 80 Respiratory Rate 20 14 Blood Pressure 107/66 L Blood Pressure [Right Arm] 126/70 Blood Pressure Mean [Right Arm] 88 Blood Pressure Source [Right Arm] Automatic Cuff Blood Pressure Position [Right Arm] Sitting 02 Sat by Pulse Oximetry 97 97 Oxygen Delivery Method Room Air 03/09/24 22:30 03/09/24 23:01 03/09/24 23:32 Temperature Temperature Source Pulse Rate 82 80 80 Pulse Rate [Left Radial] Respiratory Rate 21 18 15 Blood Pressure 129/74 105/60 L 94/72 L Blood Pressure [Right Arm] Blood Pressure Mean [Right Arm] Blood Pressure Source [Right Arm] Blood Pressure Position [Right Arm] 02 Sat by Pulse Oximetry 96 94 L 93 L Oxygen Delivery Method 03/09/24 23:51 03/10/24 00:30 03/10/24 01:00 Temperature Temperature Source Pulse Rate 81 80 81 Pulse Rate [Left Radial] Respiratory Rate 18 16 14 Blood Pressure 105/55 L 110/60 122/67 Blood Pressure [Right Arm] Blood Pressure Mean [Right Arm] Blood Pressure Source [Right Arm] Blood Pressure Position [Right Arm] 02 Sat by Pulse Oximetry 94 L 96 96 Oxygen Delivery Method Lab Data Labs: Lab Results 03/09/24 21:57: WBC 8.0, RBC 4.14 L, Hgb 12.5 L, Hct 39.0 L, MCV 94.2 H, MCH 30.1, MCHC 32.0, RDW 15.0, Plt Count 185, MPV 7.2 L, Neut % (Auto) 45.7, Lymph % (Auto) 44.5, [place] % (Auto) 7.4, Eos % (Auto) 1.8, Baso % (Auto) 0.7, Neut # (Auto) 3.6, Lymph # (Auto) 3.6, [place] # (Auto) 0.6, Eos # (Auto) 0.1, Baso # (Auto) 0.1, Sodium 135 L, Potassium 5.0, Chloride 105, Carbon Dioxide 20 L, Anion Gap 15.0, BUN 38 H, Creatinine 2.20 H, Estimated Creat Clear 34, Estimated GFR 29 L, Est GFR ( Amer) 35 L, Glucose 104 H, Calcium 8.6, Total Bilirubin 0.5, AST 28, ALT 25, Alkaline Phosphatase 64, Troponin I < 0.01, NT-Pro-B Natriuret Pep 135, Total Protein 7.1, Albumin 4.2, Globulin 2.9, Albumin/Globulin Ratio 1.4, Lipase 59 03/10/24 00:30: Troponin I < 0.01 Response Orders (Tests/Meds): ED MEDICATIONS Discontinued Medications Generic Name Dose Route Start Last Admin Trade Name [place] PRN Reason Stop Dose Admin Acetaminophen 1,000 mg 03/09/24 22:08 03/09/24 22:16 Acetaminophen 1,000mg/100ml Vial IV 03/09/24 22:09 1,000 mg ONCE ONE Administration Aspirin 324 mg 03/09/24 22:15 03/09/24 22:17 Aspirin 81mg Chewable Tablet PO 03/09/24 22:16 324 mg ONCE ONE Administration Belladonna Alkaloids 60 ml 03/09/24 22:08 03/09/24 22:16 Belladonna Alkaloids 60 Ml Ml PO 03/09/24 22:09 60 ml ONCE ONE Administration Sodium Chloride 1,000 mls @ 999 mls/hr 03/09/24 22:08 03/09/24 22:16 Sod Chlor 0.9% 1000ml Bag IV 03/09/24 23:08 999 mls/hr .Q1H1M ONE Administration Ketorolac Tromethamine 15 mg 03/09/24 22:08 03/09/24 22:16 Ketorolac 30mg/Ml Vial IV 03/09/24 22:09 15 mg ONCE ONE Administration ORDERS Category Date Time Status Chest XR 2 view (NOT portable) [XR chest 2V] Stat Exams 03/09/24 22:08 Completed BNP [NT Pro Brain Natriuretic Pep.] Stat Lab 03/09/24 21:57 Completed CBC w/Auto Diff [Complete Blood Count Auto Diff] Stat Lab 03/09/24 21:57 Completed CMP [Comprehensive Metabolic Panel] Stat Lab 03/09/24 21:57 Completed Lipase Stat Lab 03/09/24 21:57 Completed Trop I [Troponin I] Stat Lab 03/09/24 21:57 Completed Troponin I Q3H Lab 03/10/24 00:30 Completed Troponin I Q3H Lab 03/10/24 04:15 Ordered MDM Narrative Medical Decision Narrative: In summary patient is a 83-year-old male who presents to the emergency department for evaluation of right-sided chest pain. Patient is hemodynamically stable upon arrival, afebrile. Physical exam is remarkable for nonreproducible right-sided chest pain present at the time of my exam. Breath sounds are clear and equal bilaterally. Patient has no back pain dysuria abdominal pain rebound or guarding or rigidity. Bowel sounds normal active.. Differential diagnosis includes ACS versus esophageal spasm versus musculoskeletal spasm etc. Initial workup will be conducted with hematologic labs twelve-lead EKG plain film chest x-ray. Initial interventions include crystalloid bolus Toradol Tylenol GI cocktail. Initial workup reviewed by me and his troponin is undetectable however patient has a creatinine of 2.2 with a BUN of 30 and a GFR of 29 which appears to be worsening since February 02, 2024.. Plan will be for second troponin and 48-hour follow-up for recheck of his creatinine at the time of handoff to Dr. Parker at 2300 hrs. Parker: Upon my assumption of care patient is stable. He states his symptoms have improved. He is resting comfortably. Patient was placed in the ED observation at 2305 for serial troponins to rule out evolving IA and for symptomatic monitoring. 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 He remained hemodynamically stable and feeling well. Repeat troponin was also undetectably low at less than 0.01. This is further reassurance against acute cardiac abnormality. At this time patient is appropriate for discharge. I have reviewed labs and agree with the plan for close outpatient follow-up with elevated creatinine and a trend of decreasing kidney function. I spent extra time at bedside encouraging the patient to have close follow-up with his primary care doctor and energy professional. Patient was given instructions on symptomatic management, follow up instructions, and return precautions for the emergency department. Patient indicated understanding and was discharged in stable condition. Total time in ED observation: 2 hours 13 minutes
--- NOTE | 2024-03-09 22:08 | XR_ITS ---
PROCEDURE INFORMATION: Exam: XR Chest Exam date and time: 03/09/2024 10:12 PM Age: 83 years old Clinical indication: Pain; Chest pressure; Additional info: Right-sided chest pain TECHNIQUE: Imaging protocol: Radiologic exam of the chest. Views: 2 views. COMPARISON: CR XR CHEST PORTABLE 12/27/2022 3:45 PM FINDINGS: Tubes, catheters and devices: A dual lead pacing device enters from the left. Lungs: Unremarkable. No consolidation. Pleural spaces: Unremarkable. No pleural effusion. No pneumothorax. Heart/Mediastinum: Unremarkable. No cardiomegaly. Vasculature: Unremarkable. Bones/joints: Postsurgical changes of the right shoulder are noted. Mild degenerative change of the thoracic spine is evident. IMPRESSION: No acute findings.
[2024-03-09] MEDS: ACETAMINOPHEN 1,000MG/100ML VIAL 1000 MG IV (22:16)
[2024-03-09] MEDS: KETOROLAC 30MG/ML VIAL 15 MG IV (22:16)
[2024-03-09] MEDS: 0.9 % SODIUM CHLORIDE 1000ML 1,000 ML 999 ML IV (22:16)
[2024-03-09] MEDS: BELLADONNA ALKALOIDS 60 ML ML PO (22:16)
[2024-03-09] MEDS: ASPIRIN 81MG CHEWABLE TABLET 324 MG PO (22:17)
[2024-03-09 22:20] LABS: Albumin Level 4.2 g/dl (3.5-5.0); Basophils # 0.1 K/mm3 (0-0.2); Basophils % 0.7 % (0.1-2.0); Chloride 105 mmol/L (98-107); Eosinophils # 0.1 K/mm3 (0.0-0.4); Eosinophils % 1.8 % (0.1-12.0); Hemoglobin 12.5 g/dL (14.1-18.0); Lymphocytes # 3.6 K/mm3 (0.7-4.5); Lymphocytes % 44.5 % (10-50); Mean Corpuscular Hemoglobin 30.1 pg (27.0-31.2); Mean Corpuscular Volume 94.2 fl (80-94); Mean Platelet Volume 7.2 fl (7.4-10.4); Monocytes # 0.6 K/mm3 (0.1-1.0); Monocytes % 7.4 % (1.7-9.3); Neutrophils # 3.6 K/mm3 (1.8-7.8); Neutrophils % 45.7 % (37.0-80.0); Platelet Count 185 K/mm3 (142-424); Red Blood Count 4.14 M/mm3 (4.60-6.20); Sodium 135 mmol/L (136-145)
[2024-03-09 22:22] LABS: Lipase 59 U/L (23-300)
[2024-03-09 22:23] LABS: Alanine Aminotransferase 25 U/L (12-78); Albumin/Globulin Ratio 1.4 (1.1-1.8); Alkaline Phosphatase 64 U/L (38-126); Aspartate Amino Transferase 28 U/L (17-59); Bilirubin,Total 0.5 mg/dl (0.2-1.3); Blood Urea Nitrogen 38 mg/dl (9-20); Carbon Dioxide 20 mmol/L (22.0-30.0); Creatinine Clearance Estimated 34 mL/min (50-200); Estimated Glomerular Filt Rate 29 ml/min (>60); GFR (African American) 35 ML/MIN (>60); Globulin 2.9 g/dL (1.3-3.2); Total Protein,Serum 7.1 g/dl (6.3-8.2)
[2024-03-09 22:24] LABS: Calcium 8.6 mg/dl (8.4-10.2); Glucose 104 mg/dl (74-100)
[2024-03-09 22:32] LABS: NT Pro Brain Natriuretic Pep. 135 pg/mL (0-450)
[2024-03-09 22:38] LABS: Troponin I < 0.01 ng/ml (0.00-0.034)
[2024-03-10 00:30] VITALS: BP 110/60; PULSE 80; RESP 16; O2SAT 96
[2024-03-10 01:00] VITALS: BP 122/67; PULSE 81; RESP 14; O2SAT 96
--- NOTE | 2024-03-10 01:08 | PC.NURSE ---
contacted lab, 3 minutes left on 2nd trop
[2024-03-10 01:12] LABS: Troponin I < 0.01 ng/ml (0.00-0.034)
[2024-03-10 01:18] VITALS: BP 122/57; PULSE 80; RESP 18; TEMP 36.9; O2SAT 96
== END 2024-03-10 01:24 | disposition home or self-care (01) ==
PROVIDERS: Physician Assistant; Emergency Provider Emergency Medicine; PCP Nurse Practitioner Family
DX: R07.9 Chest pain, unspecified (principal); R79.89 Other specified abnormal findings of blood chemistry; I11.9 Hypertensive heart disease without heart failure; I25.119 Atherosclerotic heart disease of native coronary artery with unspecified angina pectoris; E78.5 Hyperlipidemia, unspecified; Z95.5 Presence of coronary angioplasty implant and graft; Z95.0 Presence of cardiac pacemaker
CPT/HCPCS: 71046; 80053; 83690; 83880; 84484; 85025; 93005; 96361; 96374; 96375; 99284; J0131; J1885

== ENCOUNTER 2024-03-30 08:21 | Day surgery (SDC) | payer MEDICARE, SELFPAY ==
[2024-03-30] VITALS (12 sets, daily range): BP systolic 103–133; BP diastolic 70–85; PULSE 65–82; RESP 16–20; TEMP 36.6–36.7; O2SAT 95–97; BMI 34.4
--- NOTE | 2024-03-30 07:23 | IR_ITS ---
APPROVED REPORT Patient Location: Outpatient [facility] St[facility]: DUSTIN Baires RT (R) PROCEDURES Selective coronary angiogram INDICATION Abnormal Myoview, Angina pectoris Informed consent was obtained prior to the procedure. COMPLICATIONS None Estimated Blood Loss: Less than 10 mls TECHNIQUE One percent lidocaine used to anesthetize the right anterior aspect of the wrist. The right radial artery was accessed via the Seldinger technique. A 6 Syriac sheath was placed in the right radial artery. 2.5 mg of Verapamil, 800 mcg of nitroglycerin, 1mg Lidocaine and 5000 U Heparin were given through the arterial sheath. The papa catheter was also used to perform selective coronary angiogram. At the end of the procedure the sheath was removed good hemostasis was achieved using Traclet band, patient was transferred to the postop holding area in stable condition. ANGIOGRAPHIC RESULTS The left main artery Normal The left anterior descending artery Has proximal has proximal 10 to 20% stenosis with mid vessel concentric calcified 30% stenosis with additional mild luminal regularities distally The circumflex artery Nondominant with 10 to 20% luminal regularities The right coronary artery Dominant with diffuse 20 to 30% plaque. The BETTENCOURT ventriculogram reveals Not performed The left ventricular end-diastolic pressure Not measured IMPRESSION Mild nonflow limiting coronary disease as described above There is an unusual collateral branch originating off the posterior lateral branch and could possibly be supplying an extracardiac structure PLAN 1. Medical management 2. Consider cardiac MRI looking for extracardiac structure Electronically signed by : Theodore Macario MD 03/30/2024 10:51:42
[2024-03-30 08:48] LABS: Basophils # 0.1 K/mm3 (0-0.2); Basophils % 1.1 % (0.1-2.0); Eosinophils # 0.1 K/mm3 (0.0-0.4); Eosinophils % 1.9 % (0.1-12.0); Hematocrit 41.1 % (42.0-52.0); Hemoglobin 13.1 g/dL (14.1-18.0); Lymphocytes # 2.8 K/mm3 (0.7-4.5); Lymphocytes % 37.5 % (10-50); Mean Corpuscular Hemoglobin 30.2 pg (27.0-31.2); Mean Corpuscular Volume 94.2 fl (80-94); Mean Platelet Volume 8.3 fl (7.4-10.4); Monocytes # 0.4 K/mm3 (0.1-1.0); Monocytes % 5.9 % (1.7-9.3); Neutrophils # 3.9 K/mm3 (1.8-7.8); Neutrophils % 53.7 % (37.0-80.0); Platelet Count 209 K/mm3 (142-424); Red Blood Count 4.36 M/mm3 (4.60-6.20); Red Cell Distribution Width 15.3 % (11.5-17.5); White Blood Count 7.3 K/mm3 (4.8-10.8)
[2024-03-30 09:06] LABS: Chloride 111 mmol/L (98-107); Sodium 140 mmol/L (136-145)
[2024-03-30 09:07] LABS: Potassium 4.5 mmoL/L (3.5-5.1)
[2024-03-30 09:09] LABS: Blood Urea Nitrogen 23 mg/dl (9-20); Creatinine Clearance Estimated 60 mL/min (50-200); Estimated Glomerular Filt Rate 53 ml/min (>60); GFR (African American) 64 ML/MIN (>60)
[2024-03-30 09:10] LABS: Anion Gap 9.5 mEq/L (5-15); Calcium 8.8 mg/dl (8.4-10.2); Carbon Dioxide 24 mmol/L (22.0-30.0); Glucose 109 mg/dl (74-100)
[2024-03-30] MEDS: HEPARIN 1,000 UNITS/ML 10ML VIAL (CATH LAB) 10000 UNIT IV (10:27)
[2024-03-30] MEDS: diphenhydrAMINE 50MG/ML VIAL 50 MG IV (10:27)
[2024-03-30] MEDS: LIDOCAINE 1% 10ML MDV 20 ML IJ (10:27)
[2024-03-30] MEDS: VERAPAMIL 2.5MG/ML 2ML VIAL 2.5 MG IV (10:28)
[2024-03-30] MEDS: NITROGLYCERIN 800MCG/8ML SYR (CATH LAB) 800 MCG IA (10:28)
[2024-03-30] MEDS: HEPARIN 1,000 UNITS/500ML NS (CATH LAB) 3000 UNIT IV (10:28)
[2024-03-30] MEDS: 0.9 % SODIUM CHLORIDE 500 ML 25 ML IV (10:28)
[2024-03-30] MEDS: FENTANYL 100MCG/2ML VIAL 25 MCG IV (10:42)
[2024-03-30] MEDS: MIDAZOLAM HCL 1MG/1ML 5ML VIAL 1 MG IV (10:42)
[2024-03-30] MEDS: IOPAMIDOL-370 (76%);100ML BOTTLE 50 ML IV (13:19)
== END 2024-03-30 13:39 | disposition home or self-care (01) ==
LOC: CATHLAB 08:22
PROVIDERS: PCP Nurse Practitioner Family; Visit Provider Internal Medicine
DX: R93.1 Abnormal findings on diagnostic imaging of heart and coronary circulation (principal); I25.118 Atherosclerotic heart disease of native coronary artery with other forms of angina pectoris; R06.00 Dyspnea, unspecified; Z79.899 Other long term (current) drug therapy; I49.5 Sick sinus syndrome; I48.0 Paroxysmal atrial fibrillation; I10 Essential (primary) hypertension
CPT/HCPCS: 80048; 85025; 93454; 99152; C1725; C1769; J1200; J1644; J2250; J3010; Q9967

== ENCOUNTER 2024-04-01 06:34 | Outpatient (CLI) | payer MEDICARE, SELFPAY ==
--- NOTE | 2024-04-01 06:37 | CT_ITS ---
FINAL REPORT TECHNIQUE: Multiple axial CT sections were performed through the face without IV contrast. Coronal and sagittal reconstruction images were performed. This study was performed with techniques to keep radiation doses as low as reasonably achievable (ALARA). Individualized dose reduction techniques using automated exposure control or adjustment of mA and/or kV according to the patient's size were employed. CLINICAL HISTORY: mass in nasal cavity COMPARISON: None FINDINGS: CT SINUSES WITHOUT CONTRAST: There is an ovoid soft tissue density in the anterior aspect of the left nasal cavity extending into the ethmoid air cells, measuring 2.3 x 1.7 cm in size. The nasal septum is deviated to the right. The maxillary, frontal, and sphenoid sinuses are unremarkable in appearance without evidence of significant mucoperiosteal thickening or air-fluid levels. IMPRESSION: 2.3 x 1.7 cm ovoid soft tissue density in the anterior aspect of the left nasal cavity extending into the ethmoid air cells and deviating the nasal septum to the right. Reviewed, Interpreted and Dictated by Stefano Miranda MD Transcribed by Brandy Cook Authenticated and [facility]
== END 2024-04-01 23:59 | disposition home or self-care (01) ==
LOC: RAD 06:34
PROVIDERS: PCP Nurse Practitioner Family; Visit Provider Student in an Organized Health Care Education/Training Program
DX: J34.89 Other specified disorders of nose and nasal sinuses (principal); Z87.891 Personal history of nicotine dependence
CPT/HCPCS: 70486

== ENCOUNTER 2024-04-29 08:38 | Outpatient (CLI) | payer MEDICARE, SELFPAY ==
--- NOTE | 2024-04-29 08:38 | CT_ITS ---
APPROVED REPORT Laboratory [facility]: CLINICAL INDICATION Chest Pain TECHNIQUE Image Acquisition: A 128 slice MDCT scanner (miia View) was used for data acquisition. A noncontrast coronary calcium scan was performed. A CT attenuation threshold of 130 Hounsfield units (HU) was used for the detection of calcium in contiguous voxels of 1 sq mm in area to be counted as individual lesions. Bolus tracking in the ascending aorta with a threshold of 180 HU was performed. Immediately afterwards, ECG synchronized cardiac CT was then performed from the cardiac base to apex using retrospective gating with ECG tube current modulation. A total of 85 mL of Isovue 370 mg/mL contrast medium was administered at 5 mL/sec followed by a saline flush using a biphasic injection protocol. A tube voltage of 120 KVp was used. The patient received the following medications prior to the cardiac CT. 0.8 mg of sublingual nitroglycerin The average heart rate at the time of acquisition was 60 bpm and regular. Image Reconstruction Transaxial images were reconstructed at 0.67 mm slide thickness. Data was reviewed interactively on an advanced workstation capable of 2 and 3-dimensional displays in all conventional reconstruction formats, including multiplanar reformations, maximum intensity projections, curved multiplanar reformations, and volume rendered reconstructions. When applicable, selected routine images describing the relevant coronary anatomy and pathology were saved and sent to PACS. Complications None Technical Quality Overall image quality was fair in the setting of device lead artifact. Coronary artery opacification was adequate. Total DLP (Dose-Length Product) is 1023.8 mGy-cm. The reported value represents the total of one or more individual components during the CT acquisition of this date and at this time, and as such, the same value may appear in more than one CT report depending on the interpreting/reporting physicians. COMPARISON None FINDINGS CT Coronary Calcium Scoring LMA (Left Main Artery) = 223 LAD (Left Anterior Descending) = 745 LCX (Left Coronary Circumflex) = 36 RCA (Right Coronary Artery) = 517 Total Calcium Score = 1521 using the AJ-130 method. The observed calcium score of 1521 is at 73rd percentile for subjects of the same age, sex, and race/ethnicity. The interpretation of the calcium heart score is based on the following continuum*: 0 = no calcified plaque detected (risk of coronary artery disease is very low ??? less than 5%) 1-10 = calcium detected in extremely minimal levels (risk of coronary diseases is still low ??? less than 10%) 11-100 = mild levels of plaque detected with certainty (mild or minimal narrowing of heart arteries is likely) 101-400 = definite,at least moderate levels of plaque detected (relatively high risk of a heart attack within 3-5 years) >401-999 = extensive levels of plaque detected (high risk of heart attack, high levels of vascular disease are present, high likelihood of at least one significant coronary narrowing) *The calcium heart score quantifies the burden of coronary calcification/plaque in the coronary arteries. The calcium heart score is not able to evaluate the presence or burden of non-calcified (i.e. soft) plaque. There is also calcification in the aortic valve, mitral annulus, and the ascending and descending thoracic aorta. Coronary CT Angiography The coronary arterial system is right dominant. Quantitative Stenosis Grading: Left Main (LM): The left main originates normally from the left sinus of Valsalva. The LM bifurcates into the left anterior descending artery and left circumflex artery. There is mixed calcified/noncalcified plaque in the LM segment with < 25% luminal stenosis. Left Anterior Descending (LAD) and Diagonal Branches: The LAD gives off 2 diagonal branch(es). There is mixed calcified/noncalcified plaque along the proximal and mid LAD segments with up to 30-50% luminal stenosis. There is no evidence of LAD-myocardial bridge. Left Circumflex (LCX) and Obtuse Marginals (OM): The LCX gives off 1 Obtuse Marginal (OM) branch(es). There is mixed calcified/noncalcified plaque in the proximal LCx segments with up to 30-50% luminal stenosis. Right Coronary Artery (RCA): The RCA is difficult to visualize in the setting of device lead artifact in proximity to the vessel. The RCA originates normally from the right sinus of Valsalva. The RCA gives off a posterior descending artery (PDA) and posterolateral (PL) branches. There is mixed calcified/noncalcified plaque in the proximal, mid, and distal RCA segments, with up to 30-50% luminal stenosis. Distally, an additional branch taking off from the PL branch travels towards the right atrium. This most likely represents the sinoatrial branch (normal variant). Non-Coronary Cardiac Findings: Analysis of the left ventricular (LV) structure and function was performed after 3-D reconstruction of the LV from axial images, with user-corrected automatic contouring for assessment of LV volumes and user-defined reconstruction from oblique planes for measurement of 3-D cardiac structure and function. -The left ventricle systolic function is normal. -There is no left atrial appendage filling defect. Two right pulmonary veins and two left pulmonary veins drain normally into the left atrium. -No pericardial thickening or calcification. -Central and branch pulmonary arteries in the [id number] are unremarkable. -Thoracic aorta within the visualized thoracic aortic-branches in the [id number] is unremarkable. Extracardiac Structures No significant extra-cardiac findings. Note, however, that this study is focused on the cardiac findings. IMPRESSION -Suboptimal image quality in the setting of device lead artifact and extensive multivessel calcification -Extensive coronary calcification with an Agatston score = 1521 using the AJ-130 method. -The observed calcium score of 1521 is at 71st percentile for subjects of the same age, sex, and race/ethnicity. -Mild, non-obstructive multivessel coronary disease, with no evidence of significant flow-limiting atherosclerosis of the coronary arteries. Not, however, that the sensitivity of these findings is reduced in the setting of extensive calcification. -CAD-RADS 2. Management recommendations per ACC/AHA guidelines*, as clinically appropriate. -Incidental finding of a sino-atrial (SA) arterial branch variant taking off from the PL branch of the RCA and travelling towards the right atrium. This is a normal variant. *Recommendations: CAD RADS 0: Reassurance. Consider non-atherosclerotic causes of chest pain. CAD RADS 1: Consider non-atherosclerotic causes of chest pain. Consider preventive therapy and risk factor modification. CAD RADS 2: Consider non-atherosclerotic causes of chest pain. Consider preventive therapy and risk factor modification, particularly for patients with nonobstructive plaque in multiple segments. CAD RADS 3: Consider further functional testing. Consider symptom-guided anti-ischemic and preventive pharmacotherapy as well as risk factor modification per published guideline statements. CAD RADS 4A: Consider further functional testing or invasive coronary angiography with revascularization per published guideline statements. Consider symptom-guided anti-ischemic and preventive pharmacotherapy as well as risk factor modification per published guideline statements. CAD RADS 4B: Invasive coronary angiography recommended with revascularization per published guideline statements. Consider symptom-guided anti-ischemic and preventive pharmacotherapy as well as risk factor modification per published guideline statements. CAD RADS 5: Consider invasive angiography and/or viability assessment with revascularization per published guideline statements. Consider symptom-guided anti-ischemic and preventive pharmacotherapy as well as risk factor modification per published guideline statements. CRITICAL RESULT None COMMUNICATION Per this written report The coronary and cardiac findings of this CCTA were reviewed, reported, and signed by Addi Loza MD (Seafood Manager) Conclusion Electronically signed by : Maryann Loza MD 05/07/2024 17:14:14
[2024-04-29 09:08] VITALS: BMI 33.6
[2024-04-29 09:24] VITALS: BP 127/72; PULSE 80; RESP 18; TEMP 36.2; O2SAT 96
[2024-04-29 09:58] VITALS: BP 122/74; PULSE 60; O2SAT 96
[2024-04-29] MEDS: NITROGLYCERIN 0.4MG SL TABLET 0.8 MG SL (09:59)
[2024-04-29 10:01] VITALS: BP 105/63; PULSE 60; O2SAT 97
[2024-04-29 10:04] VITALS: BP 102/55; PULSE 60; O2SAT 97
[2024-04-29] MEDS: IOPAMIDOL-370 (76%);100ML BOTTLE 85 ML IV (10:05)
[2024-04-29] MEDS: SODIUM CHLORIDE 0.9% 10ML SYR (RAD ONLY) 10 ML IV (10:05)
[2024-04-29] MEDS: 0.9 % SODIUM CHLORIDE 50 ML VIAL IV (10:05)
== END 2024-04-29 10:15 | disposition home or self-care (01) ==
PROVIDERS: PCP Nurse Practitioner Family; Visit Provider Nurse Practitioner
DX: Q24.5 Malformation of coronary vessels (principal)
CPT/HCPCS: 75574; Q9967

== ENCOUNTER 2024-11-15 10:42 | Outpatient (CLI) | payer MEDICARE, SELFPAY ==
--- OUTSIDE RECORDS SUMMARY | 2024-11-15 10:44 | XMS_ITS | Data Portability ---
Author Organization [facility] [place] [facility] ADMIN Address [address] [place] [id number] Assessment No assessment recorded. Plan of Treatment Reminders Order Date Submit Date Provider Last Modified By Organization Details Last Modified Time Details Appointments None record ed. Lab None record ed. Referral None record ed. Procedures None record ed. Surgeries None record ed. Imaging CT, sinuse s, w/o contra st - Please use sinus surger y protoc ol, 0.625m m cuts includ ing full skull in imagin g. This scan is for sinus surger y determ inatio n. kandice garza is going out of town for severa l months this weeken d. Could we possib ly get him in this week? 2021 022 [email or web address] Centralized Scheduling, [address] , [place], [address], 2 11:43:58 Medication Orders Flonas e Allerg y Relief 50 mcg/ac tuatio n nasal spray, suspen guru 2022 023 [facility] [address] [place], [address], 3 13:06:58 amoxic illin 500 mg tablet [facility] [place], [address], 2 13:19:46 Atrove nt HFA 17 mcg/ac tuatio n aeroso l inhale r 2021 022 [facility] [address] [place], [address], 15:17:16 Patient TargetsNo targets recorded. Patient InstructionsNo instructions recorded. Reason for Referral None Reported. Results Created Date Observation Date Name Description Value Unit Range Abnormal Flag Note LastModifiedBy Organization Detail LastModifiedTime 07/03/2005/30/2022 CT, sinus es, w/o contr ast No observ ation record ed. [email or web address] Not Available 2022 12:50:24 Result Notes None recorded. Procedures Surgical History None recorded. Imaging Results Imaging Date Name Status LastModified by Organiz ation Details LastModified Time 05/30/2022 CT, sinuses, w/o contrast completed 3 Information not available 08/07/2022 12:50:24 Procedure Notes None recorded. Medical Equipment None Reported. Allergies No known drug allergies Medications Name Sig Start Date Stop Date Status Note LastModified by Organization Details LastModified Time losartan 50 mg tablet TAKE 1 TABLET BY MOUTH ONCE DAILY active Not Available Not Available No t Available furosemide 40 mg tablet TAKE 1 TABLET BY MOUTH ONCE DAILY active Not Available Not Available No t Available atorvastati n 40 mg tablet TAKE 1 TABLET BY MOUTH ONCE DAILY active Not Available Not Available No t Available cetirizine 10 mg tablet TAKE 1 TABLET BY MOUTH ONCE DAILY active Not Available Not Available No t Available ofloxacin 0.3 % eye drops INSTILL 1 DROP INTO LEFT EYE 4 TIMES DAILY STARTING 2 DAYS PRIOR TO SURGERY active Not Available Not Available No t Available prednisone 20 mg tablet TAKE 1 TABLET BY MOUTH ONCE DAILY FOR 10 DAYS 05/06 completed Not Available Not Available Not Available hydralazine 25 mg tablet TAKE 1 TABLET BY MOUTH THREE TIMES DAILY active Not Available Not Available No t Available omeprazole 40 mg capsule,del ayed release TAKE 1 CAPSULE BY MOUTH TWICE DAILY active Not Available Not Available No t Available amoxicillin 500 mg tablet TAKE 1 TABLET BY MOUTH TWICE DAILY FOR 21 DAYS 05/28 completed Not Available Not Available Not Available ketorolac 0.5 % eye drops INSTILL 1 DROP INTO LEFT EYE TWICE DAILY STARTING 2 DAYS PRIOR TO SURGERY active Not Available Not Available No t Available prednisolon e acetate 1 % eye drops,suspe nsion INSTILL 1 DROP INTO LEFT EYE 4 TIMES DAILY STARTING 2 DAYS PRIOR TO SURGERY active Not Available Not Available No t Available amlodipine 10 mg tablet TAKE 1 TABLET BY MOUTH ONCE DAILY active Not Available Not Available No t Available cephalexin 500 mg capsule TAKE 1 CAPSULE BY MOUTH THREE TIMES DAILY FOR 10 DAYS 05/06 completed Not Available Not Available Not Available pantoprazol e 40 mg tablet,arthur yed release TAKE 1 TABLET BY MOUTH ONCE DAILY IN THE MORNING BEFORE BREAKFAST active Not Available Not Available No t Available nitroglycer in 0.4 mg sublingual tablet DISSOLVE ONE TABLET UNDER THE TONGUE EVERY 5 MINUTES NEEDED FOR CHEST PAIN. active Not Available Not Available No t Available hydrocortis one 2.5 % topical cream APPLY A SMALL AMOUNT TO THE SKIN TWICE DAILY NEEDED 05/06 completed Not Available Not Available Not Available montelukast 10 mg tablet TAKE 1 TABLET BY MOUTH NIGHTLY active Not Available Not Available No t Available hydralazine 50 mg tablet TAKE 1 TABLET BY MOUTH THREE TIMES DAILY IN THE MORNING, AT NOON, AND IN THE EVENING. active Not Available Not Available No t Available ergocalcife rol (vitamin D2) 1,250 mcg (50,000 unit) capsule TAKE 1 CAPSULE BY MOUTH ONCE A WEEK active Not Available Not Available No t Available azelastine 137 mcg (0.1 %) nasal spray USE 1 SPRAY(S) IN EACH NOSTRIL TWICE DAILY 05/06 completed Not Available Not Available Not Available levofloxaci n 500 mg tablet TAKE 1 TABLET BY MOUTH EVERY 24 HOURS 05/06 completed Not Available Not Available Not Available methylpredn isolone 4 mg tablets in a dose pack TAKE BY MOUTH DIRECTED ON INSIDE OF PACKAGE active Not Available Not Available No t Available albuterol sulfate HFA 90 mcg/actuati on aerosol inhaler INHALE 2 PUFFS BY MOUTH EVERY 8 HOURS NEEDED FOR 7 DAYS active Not Available Not Available No t Available ketoconazol e 2 % topical cream APPLY TO AFFECTED AREA 1 GRAM TOPICALLY ONCE DAILY active Not Available Not Available No t Available losartan 100 mg tablet TAKE 1 TABLET BY MOUTH ONCE DAILY active Not Available Not Available No t Available fluticasone propionate 50 mcg/actuati on nasal spray,suspe nsion USE 1 SPRAY(S) IN EACH NOSTRIL ONCE DAILY active Not Available Not Available No t Available ipratropium bromide 21 mcg (0.03 %) nasal spray [place] 2 sprays twice a day by intranasa l route for 30 days. 05/28 completed Not Available Not Available Not Available finasteride 5 mg tablet TAKE 1 TABLET BY MOUTH ONCE DAILY active Not Available Not Available No t Available metoclopram art 10 mg tablet TAKE 1 TABLET BY MOUTH 4 TIMES DAILY BEFORE MEAL(S) AND NIGHTLY. 05/06 completed Not Available Not Available Not Available amoxicillin 875 mg-potassiu m clavulanate 125 mg tablet TAKE 1 TABLET BY MOUTH IN THE MORNING AND 1 TABLET BEFORE BEDTIME. DO ALL THIS FOR 5 DAYS. 01/08 completed Not Available Not Available Not Available escitalopra m 10 mg tablet TAKE 1 TABLET BY MOUTH ONCE DAILY active Not Available Not Available No t Available alfuzosin ER 10 mg tablet,exte nded release 24 hr TAKE 1 TABLET BY MOUTH ONCE DAILY active Not Available Not Available No t Available Atrovent HFA 17 mcg/actuati on aerosol inhaler Inhale 2 puffs 3 times a day by inhalatio n route. 2021 active Not Available Not Available Not Avai lable losartan 100 mg-hydrochl orothiazide 12.5 mg tablet TAKE 1 TABLET BY MOUTH ONCE DAILY active Not Available Not Available No t Available levocetiriz ine 5 mg tablet TAKE 1 TABLET BY MOUTH ONCE DAILY IN THE EVENING 05/06 completed Not Available Not Available Not Available Vitals Date Recorded Body height Body mass index (BMI) Body weight Body temperature Heart rate Systolic blood pressure Diastolic blood pressure Provider Name and Address Organization Details Last Updated DateTime 3 170.18 cm 34.4 kg/m2 86031.1 7 g 96.7 [degF] 71 /min 120 mm[Hg] 67 mm[Hg] Brit Mitchell [facility] [place] 3 09:52:24 Date Recorded Body weight Body temperature Oxygen saturation Oxygen saturation in Arterial blood by Pulse oximetry Heart rate Systolic blood pressure Diastolic blood pressure Provider Name and Address Organization Details Last Updated DateTime 2 992857. 28 g 97.2 [degF] 93 % 93 % 67 /min 134 mm[Hg] 70 mm[Hg] Crystal Porterrod [facility] [place] 2 14:54:34 Date Recorded Body weight Body mass index (BMI) Body height Body temperature Heart rate Systolic blood pressure Diastolic blood pressure Provider Name and Address Organization Details Last Updated DateTime 2 211174. 28 g 35.2 kg/m2 170.18 cm 98.2 [degF] 64 /min 141 mm[Hg] 63 mm[Hg] Brit Mitchell [place] - LPNT [facility] [place] 13:18:42 Social History None recorded. Functional Status None recorded. Mental Status None recorded. Family History Nothing Reported. Medical History Condition Response Heart Problems Y Hyperlipidemia Y Hearing Loss Y Hypertension Y Past Encounters Encounter ID Performer Location Encounter Start Date Encounter Closed Date Diagnosis/Indication Diagnosis SNOMED-CT Code Diagnosis ICD10 Code Diagnosis Note [id number] Raiza Baldwin MD [facility] [address] [place] [address] [place] [id number] 05/06/2022 14:31:15 05/06/2022 15:21:07 Chronic recurrent sinusitis 973638576 J32.9 Vasomotor rhinitis 45277 03 J30.0 [id number] Raiza Baldwin MD [facility] [place] [address] [address] [place] [address] 8 05/28/2022 12:59:56 05/28/2022 13:32:52 Chronic recurrent sinusitis 351247650 J32.9 Since the patient hasn't any real improvemen t, our next step would be a ct scan of his sinuses. He is on board with this plan. I will be in touch with him as soon as we receive the results. He can see us sooner if needed. Vasomotor rhinitis 92466 03 J30.0 [id number] Raiza Baldwin MD [facility] [place] [address] [address] [place] [address] 01/08/2023 09:46:49 01/08/2023 10:36:22 Polyp of nasal cavity and/or nasal sinus 739575612 J33.9 Health Concerns Section Related Observation LastModified by Organization Detai ls LastModified Time None Recorded Concern Status LastModified by Organization Details LastModified Time None Recorded Advance Directives Directive None Recorded Payers Encounter Date Sequence Insurance Name Policy Number Policy Cortes Covered Member ID Cortes Member ID Guarantor Name 05/06/2022 1 [place] Juan M Burgess [id number] Juan M Burgess 05/28/2022 1 [place] Juan M Burgess [id number] Juan M Burgess 01/08/2023 1 [facility] (MEDICARE REPLACEMENT/A DVANTAGE - PPO) [id number] Juan M Burgess [id number] Juan M Burgess Notes Date Note Type Note Provider Name and Address Organization Details Recorded Time 05/06/2022 text/html Patient is here today for sinus problems. He also feels he has a lot of post nasal drip and frequent need to clear phelem from his throat. Raiza Baldwin MD [address], [place], [address], [facility] - [facility] & [place] 05/07/2022 17:50:42 05/28/2022 text/html Patient is here today for sinus problems. He also feels he has a lot of post nasal drip and frequent need to clear phlegm from his throat. 05/28/22-Patient returns to the office today to follow up on his sinus concerns. States he finished the antibiotics and used the atrovent until it caused his nose to bleed. He does not feel as though there has been any real improvement. Raiza Baldwin MD [address], [place], [address], [facility] & [place] 06/03/2022 15:21:45 01/08/2023 text/html Mr. Burgess has returned from [place] and is here to review his CT scan of the sinuses. 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 Macario. Raiza Baldwin MD [address], [place], [address], [facility] - [facility] & [place] 01/08/2023 13:09:23
--- OUTSIDE RECORDS SUMMARY | 2024-11-15 10:44 | XMS_ITS | Data Portability ---
Author Organization BRE - Caio carson, [facility] [place] CL[facility] Address [address] [place] [address] Care Team Providers Care Real Estate Consultant Name Role Phone JARON BOWLES Primary Care Provider Assessment No assessment recorded. Plan of Treatment Reminders Order Date Submit Date Provider Last Modified By Organization Details Last Modified Time Details Appointments RECHECK 2024 10:45A Marcela NEUMANN MD Not available Not available Not available Lab urinalysi s panel, auto 2023 024 [facility], [address], [address], [place], [address], 03/28/2024 21:02:34 PSA, serum or plasma 2023 024 [facility], [address], [address], [place], [address], 03/28/2024 21:02:32 PSA, serum or plasma 2022 023 [facility], [address], [address], [place], [address], 03/24/2023 07:53:03 urinalysi s panel, auto 2022 023 [facility], [address], [address], [place], [address], 03/24/2023 07:53:03 culture, urine 2021 [facility], [address] [place] [address], [address], 02/26/2022 14:46:38 urinalysi s panel, auto 2021 [facility], [address], [address], [place], [address], 02/25/2022 12:35:33 PSA, serum or plasma 2021 [facility], [address], [address], [place], [address], 02/25/2022 17:20:43 urinalysi s panel, auto 2020 [facility], [address], [address], [place], [address], 02/15/2021 12:50:53 PSA, serum or plasma 2020 [facility], [address], [address], [place], [address], 02/15/2021 12:50:53 testoster one, total, serum [address] [facility], [address] [place], [address], 02/15/2021 13:42:14 urinalysi s, dipstick, auto 2019 020 [facility], [address], [address], [place], [address], 02/17/2020 13:47:32 PSA, serum or plasma 2019 [facility], [address], [address], [place], [address], 02/17/2020 13:47:32 Referral None recorded. Procedures None recorded. Surgeries None recorded. Imaging None recorded. Medication Orders alfuzosin ER 10 mg tablet,ex tended release 24 hr 2022 023 [facility] [address], [address] [place] [address], [id number], 03/24/2023 07:53:13 finasteri de 5 mg tablet 2022 023 [facility] [address], [address] [place] [address], [id number], 03/24/2023 07:53:13 alfuzosin ER 10 mg tablet,ex tended release 24 hr 2021 022 [facility] [address], [address] [place] [address], [id number], 02/25/2022 12:35:42 alfuzosin ER 10 mg tablet,ex tended release 24 hr 2019 020 [facility] [address], [address] [place] [address], [id number], 02/17/2020 13:47:44 finasteri de 5 mg tablet 2019 020 [facility] [address], [address] [place] [address], [id number], 02/17/2020 13:49:37 sildenafi l (pulmonar y hypertens ion) 20 mg tablet 2019 020 [facility], [address] [facility], [place], [address], 02/17/2020 13:47:42 Patient TargetsNo targets recorded. Patient Instructions Encounter Date Encounter Id Patient Instructions Last Modified By Organization Details Last Modified Time 02/17/2020 [id number] Erection Problems: Care Instructions [email or web address] Not available 02/17/2020 13:47:32 Continue yearly follow-up with PSA and digital rectal exam. [email or web address] Not available 02/17/2020 13:49:46 Reason for Referral None Reported. Results Created Date Observation Date Name Description Value Unit Range Abnormal Flag Note LastModifiedBy Organization Detail LastModifiedTime 02/16/2002/15/2021 urina lysis panel , auto Unknown Analyte Clean Catch Not Available [facility] [address], [address], 02/15/2021 10:55:52 02/16/20 21 02/15/2021 urina lysis panel , auto Unknown Analyte Yellow Not Available [facility] [address], [address], 02/15/2021 10:55:52 02/16/20 21 02/15/2021 urina lysis panel , auto Unknown Analyte Clear Not Available [facility] [address], [address], 02/15/2021 10:55:52 02/16/20 21 02/15/2021 urina lysis panel , auto Unknown Analyte 1.015 Not Available [facility] [address], [address], 02/15/2021 10:55:52 02/16/20 21 02/15/2021 urina lysis panel , auto Unknown Analyte 1.003- 1.035 Not Available [facility] [address], [place], [address], 02/15/2021 10:55:52 02/16/20 21 02/15/2021 urina lysis panel , auto Unknown Analyte 5.0 Not Available [facility] [address], [place], [address], 02/15/2021 10:55:52 02/16/20 21 02/15/2021 urina lysis panel , auto Unknown Analyte 5.0-8. 0 Not Available [facility] [address], [place], [address], 02/15/2021 10:55:52 02/16/20 21 02/15/2021 urina lysis panel , auto Unknown Analyte Negati ve Not Available [facility] [address], [place], [address], 02/15/2021 10:55:52 02/16/20 21 02/15/2021 urina lysis panel , auto Unknown Analyte Negati ve Not Available [facility] [address], [place], [address], 02/15/2021 10:55:52 02/16/20 21 02/15/2021 urina lysis panel , auto Unknown Analyte Negati ve Not Available [facility] [address], [place], [address], 02/15/2021 10:55:52 02/16/20 21 02/15/2021 urina lysis panel , auto Unknown Analyte Negati ve Not Available [facility] [address], [place], [address], 02/15/2021 10:55:52 02/16/20 21 02/15/2021 urina lysis panel , auto Unknown Analyte Negati ve Not Available [facility] [address], [place], [address], 02/15/2021 10:55:52 02/16/2002/15/2021 urina lysis panel , auto Unknown Analyte Negati ve Not Available [facility] [address], [place], [address], 02/15/2021 10:55:52 02/16/20 21 02/15/2021 urina lysis panel , auto Unknown Analyte Normal Not Available [facility] [address], [place], [address], 02/15/2021 10:55:52 02/16/20 21 02/15/2021 urina lysis panel , auto Unknown Analyte Normal Not Available [facility] [address], [place], [address], 02/15/2021 10:55:52 02/16/20 21 02/15/2021 urina lysis panel , auto Unknown Analyte Negati ve Not Available [facility] [address], [place], [address], 02/15/2021 10:55:52 02/16/20 21 02/15/2021 urina lysis panel , auto Unknown Analyte Negati ve Not Available [facility] [address], [place], [address], 02/15/2021 10:55:52 02/16/20 21 02/15/2021 urina lysis panel , auto Unknown Analyte Normal Not Available [facility] [address], [place], [address], 02/15/2021 10:55:52 02/16/20 21 02/15/2021 urina lysis panel , auto Unknown Analyte Normal 1 mg/dl Not Available [facility] [address], [place], [address], 02/15/2021 10:55:52 02/16/20 21 02/15/2021 urina lysis panel , auto Unknown Analyte Negati ve Not Available [facility] [address], [place], [address], 02/15/2021 10:55:52 02/16/20 21 02/15/2021 urina lysis panel , auto Unknown Analyte Negati ve Not Available [facility] [address], [place], [address], 02/15/2021 10:55:52 02/16/20 21 02/15/2021 urina lysis panel , auto Unknown Analyte Negati ve Not Available [facility] [address], [place], [address], 02/15/2021 10:55:52 02/16/20 21 02/15/2021 urina lysis panel , auto Unknown Analyte Negati ve Not Available [facility] [address], [place], [address], 02/15/2021 10:55:52 02/17/20 20 02/17/2020 urina lysis , dipst ick, auto Unknown Analyte Yellow Not Available [facility] [address], [place], [address], 02/17/2020 13:37:50 02/17/20 20 02/17/2020 urina lysis , dipst ick, auto Unknown Analyte Clear Not Available [facility] [address], [place], [address], 02/17/2020 13:37:50 02/17/20 20 02/17/2020 urina lysis , dipst ick, auto Unknown Analyte 1.015 Not Available [facility] [address], [place], [address], 02/17/2020 13:37:50 02/17/20 20 02/17/2020 urina lysis , dipst ick, auto Unknown Analyte 1.003 - 1.035 Not Available [facility] [address], [place], [address], 02/17/2020 13:37:50 02/17/20 20 02/17/2020 urina lysis , dipst ick, auto Unknown Analyte 5.0 Not Available [facility] [address], [place], [address], 02/17/2020 13:37:50 02/17/20 20 02/17/2020 urina lysis , dipst ick, auto Unknown Analyte 5.0 - 8.0 Not Available [facility] [address], [place], [address], 02/17/2020 13:37:50 02/17/20 20 02/17/2020 urina lysis , dipst ick, auto Unknown Analyte Negati ve Not Available [facility] [address], [place], [address], 02/17/2020 13:37:50 02/17/20 20 02/17/2020 urina lysis , dipst ick, auto Unknown Analyte Negati ve Not Available [facility] [address], [place], [address], 02/17/2020 13:37:50 02/17/20 20 02/17/2020 urina lysis , dipst ick, auto Unknown Analyte Negati ve Not Available [facility] [address], [place], [address], 02/17/2020 13:37:50 02/17/20 20 02/17/2020 urina lysis , dipst ick, auto Unknown Analyte Negati ve Not Available [facility] [address], [place], [address], 02/17/2020 13:37:50 02/17/20 20 02/17/2020 urina lysis , dipst ick, auto Unknown Analyte Negtiv e Not Available [facility] [address], [place], [address], 02/17/2020 13:37:50 02/17/20 20 02/17/2020 urina lysis , dipst ick, auto Unknown Analyte Negati ve - Trace Not Available [facility] [address], [place], [address], 02/17/2020 13:37:50 02/17/20 20 02/17/2020 urina lysis , dipst ick, auto Unknown Analyte Normal Not Available [facility] [address], [place], [address], 02/17/2020 13:37:50 02/17/20 20 02/17/2020 urina lysis , dipst ick, auto Unknown Analyte Normal Not Available [facility] [address], [place], [address], 02/17/2020 13:37:50 02/17/20 20 02/17/2020 urina lysis , dipst ick, auto Unknown Analyte Negati ve Not Available [facility] [address], [place], [address], 02/17/2020 13:37:50 02/17/20 20 02/17/2020 urina lysis , dipst ick, auto Unknown Analyte Negati ve Not Available [facility] [address], [place], [address], 02/17/2020 13:37:50 02/17/20 20 02/17/2020 urina lysis , dipst ick, auto Unknown Analyte Normal Not Available [facility] [address], [place], [address], 02/17/2020 13:37:50 02/17/20 20 02/17/2020 urina lysis , dipst ick, auto Unknown Analyte Normal - 1mg/dl Not Available [facility] [address], [place], [address], 02/17/2020 13:37:50 02/17/20 20 02/17/2020 urina lysis , dipst ick, auto Unknown Analyte Negati ve Not Available [facility] [address], [place], [address], 02/17/2020 13:37:50 02/17/20 20 02/17/2020 urina lysis , dipst ick, auto Unknown Analyte Negati ve Not Available [facility] [address], [place], [address], 02/17/2020 13:37:50 02/17/20 20 02/17/2020 urina lysis , dipst ick, auto Unknown Analyte Negati ve Not Available [facility] [address], [place], [address], 02/17/2020 13:37:50 02/17/20 20 02/17/2020 urina lysis , dipst ick, auto Unknown Analyte Negati ve Not Available [facility] [address], [place], [address], 02/17/2020 13:37:50 02/17/20 20 02/17/2020 urina lysis , dipst ick, auto Unknown Analyte Clean Catch Not Available [facility] [address], [place], [address], 02/17/2020 13:37:50 02/17/20 20 02/17/2020 urina lysis , dipst ick, auto Unknown Analyte Automa melany Not Available [facility] [address], [place], [address], 02/17/2020 13:37:50 02/17/20 20 02/17/2020 PSA, serum or plasm a PSA 0.09 NG/mL 0.0 - 4.0 Not Available [facility] [address], [place], [address], 02/17/2020 13:38:27 02/16/20 21 02/15/2021 TESTO STERO NE, TOTAL testosterone , total 277 NG/dL 193-74 0 normal Refer ence range is for age 50 years and over. Not Available [facility] [address] [place] [address], [address], 02/15/2021 13:42:14 02/16/20 21 02/15/2021 PSA, serum or plasm a PSA 0.11 NG/mL 0.0 - 4.0 Not Available [facility] [address], [place], [address], 02/15/2021 11:04:37 02/26/20 22 02/25/2022 URINE CULTU RE results [facility] e: CCUR Colle cted: 02/25 13:47 Site: Recei clinton : 02/25 19:33 URINE CULTU RE FINAL 03/01 11:31 02/28 Delay ed growt h: ISOLA TE #1 COLON Y COUNT : 3,000 CFU/M L Proba ble Strep tococ cus sp.; ID and sensi tivit y in progr ess. 03/01 See [facility] Resul t(s) Below ISOLA JOYCE AND SENSI TIVIT Y RESUL TS [facility] 01 Strep tococ cus bovis __ [facility] ORG# 01 ANTIB IOTIC S SAMIA INT __ Dapto mycin <=0.5 S Levof loxac in 2 S Penic illin <=0.0 3 S Vanco mycin 0.5 S Not Available [facility] [address], [place], [address], 03/01/2022 11:31:18 02/26/20 22 02/25/2022 PSA, serum or plasm a PSA 0.12 NG/mL 0.0 - 4.0 Not Available [facility] [address], [address], 02/25/2022 11:49:51 02/26/20 22 02/25/2022 urina lysis panel , auto Unknown Analyte Clean Catch Not Available [facility] [address], [place], [address], 02/25/2022 11:49:19 02/26/20 22 02/25/2022 urina lysis panel , auto Unknown Analyte Yellow Not Available [facility] [address], [address], 02/25/2022 11:49:19 02/26/20 22 02/25/2022 urina lysis panel , auto Unknown Analyte Clear Not Available [facility] [address], [place], [address], 02/25/2022 11:49:19 02/26/20 22 02/25/2022 urina lysis panel , auto Unknown Analyte 1.020 Not Available [facility] [address], [place], [address], 02/25/2022 11:49:19 02/26/20 22 02/25/2022 urina lysis panel , auto Unknown Analyte 1.003- 1.035 Not Available [facility] [address], [place], [address], 02/25/2022 11:49:19 02/26/20 22 02/25/2022 urina lysis panel , auto Unknown Analyte 5.0 Not Available [facility] [address], [place], [address], 02/25/2022 11:49:19 02/26/20 22 02/25/2022 urina lysis panel , auto Unknown Analyte 5.0-8. 0 Not Available [facility] [address], [place], [address], 02/25/2022 11:49:19 02/26/20 22 02/25/2022 urina lysis panel , auto Unknown Analyte 25 Ree/ul Trace Not Available [facility] [address], [place], [address], 02/25/2022 11:49:19 02/26/20 22 02/25/2022 urina lysis panel , auto Unknown Analyte Negati ve Not Available [facility] [address], [place], [address], 02/25/2022 11:49:19 02/26/20 22 02/25/2022 urina lysis panel , auto Unknown Analyte Negati ve Not Available [facility] [address], [place], [address], 02/25/2022 11:49:19 02/26/20 22 02/25/2022 urina lysis panel , auto Unknown Analyte Negati ve Not Available [facility] [address], [place], [address], 02/25/2022 11:49:19 02/26/20 22 02/25/2022 urina lysis panel , auto Unknown Analyte Negati ve Not Available [facility] [address], [place], [address], 02/25/2022 11:49:19 02/26/20 22 02/25/2022 urina lysis panel , auto Unknown Analyte Negati ve Not Available [facility] [address], [place], [address], 02/25/2022 11:49:19 02/26/20 22 02/25/2022 urina lysis panel , auto Unknown Analyte Normal Not Available [facility] [address], [place], [address], 02/25/2022 11:49:19 02/26/20 22 02/25/2022 urina lysis panel , auto Unknown Analyte Normal Not Available [facility] [address], [place], [address], 02/25/2022 11:49:19 02/26/20 22 02/25/2022 urina lysis panel , auto Unknown Analyte Negati ve Not Available [facility] [address], [place], [address], 02/25/2022 11:49:19 02/26/20 22 02/25/2022 urina lysis panel , auto Unknown Analyte Negati ve Not Available [facility] [address], [place], [address], 02/25/2022 11:49:19 02/26/20 22 02/25/2022 urina lysis panel , auto Unknown Analyte Normal Not Available [facility] [address], [place], [address], 02/25/2022 11:49:19 02/26/20 22 02/25/2022 urina lysis panel , auto Unknown Analyte Normal 1 mg/dl Not Available [facility] [address], [place], [address], 02/25/2022 11:49:19 02/26/20 22 02/25/2022 urina lysis panel , auto Unknown Analyte Negati ve Not Available [facility] [address], [place], [address], 02/25/2022 11:49:19 02/26/20 22 02/25/2022 urina lysis panel , auto Unknown Analyte Negati ve Not Available [facility] [address], [place], [address], 02/25/2022 11:49:19 02/26/20 22 02/25/2022 urina lysis panel , auto Unknown Analyte 50 Jack/ul Not Available [facility] [address], [place], [address], 02/25/2022 11:49:19 02/26/20 22 02/25/2022 urina lysis panel , auto Unknown Analyte Negati ve Not Available [facility] [address], [place], [address], 02/25/2022 11:49:19 03/19/20 23 03/19/2023 urina lysis panel , auto Unknown Analyte Clean Catch Not Available [facility] [address], [place], [address], 03/19/2023 11:05:34 03/19/20 23 03/19/2023 urina lysis panel , auto Unknown Analyte Yellow Not Available [facility] [address], [place], [address], 03/19/2023 11:05:34 03/19/20 23 03/19/2023 urina lysis panel , auto Unknown Analyte Clear Not Available [facility] [address], [place], [address], 03/19/2023 11:05:34 03/19/20 23 03/19/2023 urina lysis panel , auto Unknown Analyte 1.015 Not Available [facility] [address], [place], [address], 03/19/2023 11:05:34 03/19/20 23 03/19/2023 urina lysis panel , auto Unknown Analyte 1.003- 1.035 Not Available [facility] [address], [place], [address], 03/19/2023 11:05:34 03/19/20 23 03/19/2023 urina lysis panel , auto Unknown Analyte 5.0 Not Available [facility] [address], [place], [address], 03/19/2023 11:05:34 03/19/20 23 03/19/2023 urina lysis panel , auto Unknown Analyte 5.0-8. 0 Not Available [facility] [address], [place], [address], 03/19/2023 11:05:34 03/19/20 23 03/19/2023 urina lysis panel , auto Unknown Analyte Negati ve Not Available [facility] [address], [place], [address], 03/19/2023 11:05:34 03/19/20 23 03/19/2023 urina lysis panel , auto Unknown Analyte Negati ve Not Available [facility] [address], [place], [address], 03/19/2023 11:05:34 03/19/20 23 03/19/2023 urina lysis panel , auto Unknown Analyte Negati ve Not Available [facility] [address], [place], [address], 03/19/2023 11:05:34 03/19/20 23 03/19/2023 urina lysis panel , auto Unknown Analyte Negati ve Not Available [facility] [address], [place], [address], 03/19/2023 11:05:34 03/19/20 23 03/19/2023 urina lysis panel , auto Unknown Analyte Negati ve Not Available [facility] [address], [place], [address], 03/19/2023 11:05:34 03/19/20 23 03/19/2023 urina lysis panel , auto Unknown Analyte Negati ve Not Available [facility] [address], [place], [address], 03/19/2023 11:05:34 03/19/20 23 03/19/2023 urina lysis panel , auto Unknown Analyte Normal Not Available [facility] [address], [place], [address], 03/19/2023 11:05:34 03/19/20 23 03/19/2023 urina lysis panel , auto Unknown Analyte Normal Not Available [facility] [address], [place], [address], 03/19/2023 11:05:34 03/19/20 23 03/19/2023 urina lysis panel , auto Unknown Analyte Negati ve Not Available [facility] [address], [place], [address], 03/19/2023 11:05:34 03/19/20 23 03/19/2023 urina lysis panel , auto Unknown Analyte Negati ve Not Available [facility] [address], [place], [address], 03/19/2023 11:05:34 03/19/20 23 03/19/2023 urina lysis panel , auto Unknown Analyte Normal Not Available [facility] [address], [place], [address], 03/19/2023 11:05:34 03/19/20 23 03/19/2023 urina lysis panel , auto Unknown Analyte Normal 1 mg/dl Not Available [facility] [address], [place], [address], 03/19/2023 11:05:34 03/19/20 23 03/19/2023 urina lysis panel , auto Unknown Analyte Negati ve Not Available [facility] [address], [place], [address], 03/19/2023 11:05:34 03/19/20 23 03/19/2023 urina lysis panel , auto Unknown Analyte Negati ve Not Available [facility] [address], [place], [address], 03/19/2023 11:05:34 03/19/20 23 03/19/2023 urina lysis panel , auto Unknown Analyte 50 Jack/ul Not Available [facility] [address], [place], [address], 03/19/2023 11:05:34 03/19/20 23 03/19/2023 urina lysis panel , auto Unknown Analyte Negati ve Not Available [facility] [address], [place], [address], 03/19/2023 11:05:34 03/24/20 23 03/24/2023 PSA, serum or plasm a PSA 0.25 NG/mL 0.0 - 4.0 Not Available [facility] [address], [place], [address], 03/19/2023 11:05:30 03/24/20 24 03/24/2024 PSA, serum or plasm a PSA 0.30 NG/mL 0.0 - 4.0 Not Available [facility] [address], [place], [address], 03/24/2024 11:12:00 03/24/20 24 03/24/2024 urina lysis panel , auto Unknown Analyte Clean Catch Not Available [facility] [address], [place], [address], 03/24/2024 10:29:18 03/24/20 24 03/24/2024 urina lysis panel , auto Unknown Analyte Yellow Not Available [facility] [address], [place], [address], 03/24/2024 10:29:18 03/24/20 24 03/24/2024 urina lysis panel , auto Unknown Analyte Clear Not Available [facility] [address], [place], [address], 03/24/2024 10:29:18 03/24/20 24 03/24/2024 urina lysis panel , auto Unknown Analyte 1.015 Not Available [facility] [address], [place], [address], 03/24/2024 10:29:18 03/24/20 24 03/24/2024 urina lysis panel , auto Unknown Analyte 1.003- 1.035 Not Available [facility] [address], [place], [address], 03/24/2024 10:29:18 03/24/20 24 03/24/2024 urina lysis panel , auto Unknown Analyte 5.0 Not Available [facility] [address], [place], [address], 03/24/2024 10:29:18 03/24/20 24 03/24/2024 urina lysis panel , auto Unknown Analyte 5.0-8. 0 Not Available [facility] [address], [place], [address], 03/24/2024 10:29:18 03/24/20 24 03/24/2024 urina lysis panel , auto Unknown Analyte Negati ve Not Available [facility] [address], [place], [address], 03/24/2024 10:29:18 03/24/20 24 03/24/2024 urina lysis panel , auto Unknown Analyte Negati ve Not Available [facility] [address], [place], [address], 03/24/2024 10:29:18 03/24/20 24 03/24/2024 urina lysis panel , auto Unknown Analyte Negati ve Not Available [facility] [address], [place], [address], 03/24/2024 10:29:18 03/24/20 24 03/24/2024 urina lysis panel , auto Unknown Analyte Negati ve Not Available [facility] [address], [place], [address], 03/24/2024 10:29:18 03/24/20 24 03/24/2024 urina lysis panel , auto Unknown Analyte Negati ve Not Available [facility] [address], [place], [address], 03/24/2024 10:29:18 03/24/20 24 03/24/2024 urina lysis panel , auto Unknown Analyte Negati ve Not Available [facility] [address], [place], [address], 03/24/2024 10:29:18 03/24/20 24 03/24/2024 urina lysis panel , auto Unknown Analyte Normal Not Available [facility] [address], [place], [address], 03/24/2024 10:29:18 03/24/20 24 03/24/2024 urina lysis panel , auto Unknown Analyte Normal Not Available [facility] [address], [place], [address], 03/24/2024 10:29:18 03/24/20 24 03/24/2024 urina lysis panel , auto Unknown Analyte Negati ve Not Available [facility] [address], [place], [address], 03/24/2024 10:29:18 03/24/20 24 03/24/2024 urina lysis panel , auto Unknown Analyte Negati ve Not Available [facility] [address], [place], [address], 03/24/2024 10:29:18 03/24/20 24 03/24/2024 urina lysis panel , auto Unknown Analyte Normal Not Available [facility] [address], [place], [address], 03/24/2024 10:29:18 03/24/20 24 03/24/2024 urina lysis panel , auto Unknown Analyte Normal 1 mg/dl Not Available [facility] [address], [place], [address], 03/24/2024 10:29:18 03/24/20 24 03/24/2024 urina lysis panel , auto Unknown Analyte Negati ve Not Available [facility] [address], [place], [address], 03/24/2024 10:29:18 03/24/20 24 03/24/2024 urina lysis panel , auto Unknown Analyte Negati ve Not Available [facility] [address], [place], [address], 03/24/2024 10:29:18 08/2103/24/2024 urina lysis panel , auto Unknown Analyte Negati ve Not Available [facility] [address] [facility] [address], [place], [address], 03/24/2024 10:29:18 03/24/20 24 03/24/2024 urina lysis panel , auto Unknown Analyte Negati ve Not Available [facility] [address], [place], [address], 03/24/2024 10:29:18 Result Notes None recorded. 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 Procedures Surgical History Date Name Laterality Status Provider Name and Address Organization Details Recorded Time Cholecystectomy completed Deseriee Sodus [facility] 01/02/2017 10:34:06 Knee arthroscopy/surgery completed Deseriee Sodus [facility] 01/02/2017 10:34:16 Imaging Results None recorded. Procedure Notes None recorded. Medical Equipment None Reported. Allergies Allergen ID Allergen Name Allergen Category Reaction Reaction Severity Criticality Documentation Date Start Date Code Code System Note Provider Name and Address Organization Details Recorded Time 329093 codeine medicatio n Not available Not available Not available 06/28/20162008 4220 RxNorm Comme nt: Creat ed By: [facility] aft Anca benitezCre atedean Date: 06/20 8:49: 20 AM; [facility] 13:[facility]:57 Medications Name Sig Start Date Stop Date Status Note LastModified by Organization Details LastModified Time Prescriptio n - Prior Authorizati on Request 02/16 completed Not Available Not Available Not Available lisinopril 20 mg tablet Two times a day 02/16 completed Frequen cy: bid;Med ication Descrip tion: lisinop ril; Dosage: 1; Route:o ral; refills :0 Not Available Not Available Not Available amlodipine 10 mg tablet Daily 02/16 completed Frequen cy: daily;M edicati on Descrip tion: amlodip ine; Dosage: 1; Route:o ral; refills :0 Not Available Not Available Not Available omeprazole 20 mg capsule,del ayed release Daily 02/16 completed Frequen cy: daily;M edicati on Descrip tion: omepraz ole; Dosage: 2; Route:o ral; refills :0 Not Available Not Available Not Available Viagra 100 mg tablet As needed 02/16 completed Instruc tions: 1/2 to 1 tab as needed for ED;Freq uency: prn;Med ication Descrip tion: sildena basil; Dosage: 1; Route:o ral; refills :11; Quantit y:6 tablet Not Available Not Available Not Available Ecotrin 325 mg tablet,ente lmua coated Daily 02/16 completed Frequen cy: daily;M edicati on Descrip tion: aspirin ; Dosage: 1; Route:o ral; refills :0 Not Available Not Available Not Available levofloxaci n 500 mg tablet Take 1 tablet every 24 hours by oral route. 2021 active Not Available Not Available Not Avai lable finasteride 5 mg tablet Take 1 tablet every day by oral route. 2022 active Not Available Not Available Not Avai lable escitalopra m 10 mg tablet Take 1 tablet every day by oral route. active Not Available Not Available No t Available alfuzosin ER 10 mg tablet,exte nded release 24 hr Daily 2022 active Not Available Not Available Not Avai lable sildenafil (bulk) 100 % powder 02/16 completed Not Available Not Available Not Available sildenafil (pulmonary hypertensio n) 20 mg tablet Take 1 tablet as needed by oral route as directe d. 2019 active Not Available Not Available Not Avai lable atorvastati n active Not Available Not Available Not Available finasteride active Not Available Not A vailable Not Available Aspir-81 active Not Available Not Avai lable Not Available furosemide active Not Available Not Av ailable Not Available Plavix 02/16 completed Not Available Not Available Not Available spironolact one active Not Available Not Available Not Available D3-2000 active Not Available Not Avail able Not Available Systane (PF) active Not Available Not Available Not Available Eliquis 5 mg tablet Take 1 tablet twice a day by oral route. 02/16 completed Not Available Not Available Not Available Eliquis 02/16 completed Not Available Not Available Not Available Vitals Date Recorded Body height Provider Name an d Address Organization Details Last Updated DateTime 02/17/2020 170.18 cm Himanshu Bejaranot [facility] 02/17/2020 13:33:58 Date Recorded Body height Body mass index (BMI) Body weight Provider Name and Address Organization Details Last Updated DateTime 02/15/2021 170.18 cm 33.7 kg/m2 68022.36 g [facility] 02/15/2021 10:55:34 Date Recorded Body height Body mass index (BMI) Body weight Provider Name and Address Organization Details Last Updated DateTime 02/25/2022 170.18 cm 33.7 kg/m2 66611.36 g [facility] 02/25/2022 11:47:11 Date Recorded Body height Body mass index (BMI) Body weight Provider Name and Address Organization Details Last Updated DateTime 03/19/2023 170.18 cm 32.9 kg/m2 83523.4 g Tiffanie Cheungpherd [facility] 03/19/2023 11:05:19 Date Recorded Body height Body mass index (BMI) Body weight Provider Name and Address Organization Details Last Updated DateTime 03/24/2024 170.18 cm 33.7 kg/m2 67360.36 g Trista Kurt [facility] 03/24/2024 10:38:24 Social History Question Answer Notes LastModified by Organizat ion Details LastModified Time Tobacco Smoking Status Never Smoker Evelyn Odonnell kaela [facility] 04/20/2018 13:42:13 What Is Your Level Of Alcohol Consumption? None [email or web address] Information not available 01/02/2017 How Much Tobacco Do You Chew? None [email or web address] Information not available 01/07/2019 Marital Status [email or web address] Informatio n not available 01/02/2017 What Was The Date Of Your Most Recent Tobacco Screening? 01/07/2019 Information n ot available 09/21/2019 Sex: Unknown Functional Status None recorded. Mental Status None recorded. Family History Relationship Description Onset Age of this Age Resolved Age Notes LastModified by Organization Details LastModified Time Father No current problems or disability [email or web address] Not available 01/02 10:33:42 Mother No current problems or disability [email or web address] Not available 01/02 10:33:42 Medical History Condition Response Thyroid Disease N Arthritis Y Kidney Stones Y Heart Conditions Y Hernia N Migraines N Stroke N Asthma N Glaucoma Y Pneumonia Y Blood Thinners Y Sleep Apnea N High Cholesterol N Liver Disease N Hypertension Y Osteoporosis N Kidney Disease N Past Encounters Encounter ID Performer Location Encounter Start Date Encounter Closed Date Diagnosis/Indication Diagnosis SNOMED-CT Code Diagnosis ICD10 Code Diagnosis Note [id number] MD JAYLEN STEEN JR, [facility] [address] [facility] [place] [address] 01/02/2017 09:56:51 01/02/2017 11:02:38 Lower urinary tract symptoms due to benign prostatic hypertrophy 1516256055 9101 N40.1 Impotence 479760507 N52. 9 [id number] DANIS NEUMANN JR, MD [facility] [address] [place] [address] 01/05/2018 11:13:00 01/05/2018 12:18:36 Lower urinary tract symptoms due to benign prostatic hypertrophy 3264968726 9101 N40.1 Impotence 897371119 N52. 9 [id number] W LAYLA DE LUNA MD [facility] [address] [place] [address] 04/20/2018 13:09:16 04/20/2018 14:27:07 Full thickness rotator cuff tear 173131939 M75.551 [id number] DANIS NEUMANN JR, MD JAYLEN [facility] [address] [address] 01/07/2019 10:15:33 01/07/2019 11:19:17 Lower urinary tract symptoms due to benign prostatic hypertrophy 7316128391 9101 N40.1 Impotence 672658666 N52. 9 [id number] DANIS NEUMANN JR, MD JAYLEN [facility] [address] [address] 02/17/2020 12:58:36 02/17/2020 13:49:47 Lower urinary tract symptoms due to benign prostatic hypertrophy 5648750010 9101 N40.1 Impotence 975478556 N52. 9 [id number] DANIS NEUMANN JR, MD JAYLEN [facility] [address] [place] [address] 02/15/2021 10:39:50 02/15/2021 11:25:07 Lower urinary tract symptoms due to benign prostatic hypertrophy 0695338170 9101 N40.1 Reduced libido 2786202 R 68.82 Primary er ectile dysfunction 935111018 N52.9 [id number] DANIS NEUMANN JR, MD CUA [facility] [address] [address] 02/25/2022 10:43:58 02/25/2022 11:29:43 Lower urinary tract symptoms due to benign prostatic hypertrophy 0307432419 9101 N40.1 Urinary tr act infectious disease 02717540 N39.0 [id number] DANIS NEUMANN JR, MD JAYLEN [facility] [address] [place] [address] 03/19/2023 10:18:00 03/19/2023 10:58:04 Lower urinary tract symptoms due to benign prostatic hypertrophy 4445933255 9101 N40.1 [id number] DANIS NEUMANN JR, MD CUA [facility] [address] [place] [address] 03/24/2024 10:20:16 03/24/2024 10:55:19 Lower urinary tract symptoms due to benign prostatic hypertrophy [id number] 9101 N40.1 Health Concerns Section Related Observation LastModified by Organization Detai ls LastModified Time None Recorded Concern Status LastModified by Organization Details LastModified Time None Recorded Advance Directives Directive None Recorded Payers Encounter Date Sequence Insurance Name Policy Number Policy Cortes Covered Member ID Corets Member ID Guarantor Name 02/17/2020 1 [place] Juan M Matosid [id number] Juan M Jaime Aditya 02/17/2020 2 [place] [id number] Juan M Matosid [id number] Juan M Jaime Aditya 02/15/2021 1 [place] Juan M Matosid [id number] Juan M Jaime Aditya 02/15/2021 2 [place] [id number] Juan M Jaime Aditya [id number] Juan M Jaime Aditya 02/25/2022 1 [place] Juan M Matosid [id number] Juan M Jaime Aidtya 02/25/2022 2 [place] [id number] Juan M Jaime Aditya [id number] Juan M Jaime Aditya 03/19/2023 1 [facility] (MEDICARE REPLACEMENT/A DVANTAGE - PPO) [id number] Juan M Matosid [id number] Juan M Burgess 03/24/2024 1 [facility] (MEDICARE REPLACEMENT/A DVANTAGE - PPO) [id number] Juan M Jaime Aditya [id number] Juan M Burgess Notes Date Note Type Note Provider Name and Address Organization Details Recorded Time 02/17/2020 text/html patient is in today for follow-up of BPH and erectile dysfunction. He is currently treated with Uroxatral and finasteride without any new lower urinary tract symptoms and he wishes to continue with this therapy. Erectile dysfunction is treated successfully with sildenafil. [place], [address], [facility] 02/23/2020 08:18:57 02/15/2021 text/html patient is in today for follow-up of BPH and erectile dysfunction. He is currently treated with Uroxatral and finasteride without any new lower urinary tract symptoms and he wishes to continue with this therapy. Erectile dysfunction is treated with sildenafil however it is not working as well as it had in the past. [place], [address], [facility] 02/18/2021 17:55:12 02/25/2022 text/html patient is in today for follow-up of BPH and erectile dysfunction. He is currently treated with Uroxatral and finasteride without any new lower urinary tract symptoms and he wishes to continue with this therapy. Erectile dysfunction is treated with sildenafil however it is not working as well as it had in the past. [place], [address], [facility] 03/09/2022 17:23:28 03/19/2023 text/html patient is in today for follow-up of BPH and erectile dysfunction. He is currently treated with Uroxatral and finasteride without any new lower urinary tract symptoms and he wishes to continue with this therapy. Erectile dysfunction is treated with sildenafil however it is not working as well as it had in the past. [place], [address], [facility] 03/24/2023 07:53:06 03/24/2024 text/html patient is in today for follow-up of BPH and erectile dysfunction. He is currently treated with Uroxatral and finasteride without any new lower urinary tract symptoms and he wishes to continue with this therapy. Erectile dysfunction is treated with sildenafil however it is not working as well as it had in the past. DANIS NEUMANN JR, MD [facility] [place], [address], [facility] - [facility] 03/28/2024 21:02:35
[2024-11-15 10:55] LABS: Basophils # 0.1 K/mm3 (0-0.2); Basophils % 0.6 % (0.1-2.0); Eosinophils # 0.1 K/mm3 (0.0-0.4); Eosinophils % 1.4 % (0.1-12.0); Hematocrit 40.9 % (42.0-52.0); Hemoglobin 13.5 g/dL (14.1-18.0); Lymphocytes # 3.1 K/mm3 (0.7-4.5); Lymphocytes % 36.9 % (10-50); Mean Corpuscular Volume 90.9 fl (80-94); Mean Platelet Volume 8.9 fl (7.4-10.4); Monocytes # 0.6 K/mm3 (0.1-1.0); Monocytes % 7.3 % (1.7-9.3); Neutrophils # 4.6 K/mm3 (1.8-7.8); Neutrophils % 53.7 % (37.0-80.0); Nucleated Red Blood Cells # 0 10^3/uL; Nucleated Red Blood Cells % 0 %; Platelet Count 195 K/mm3 (142-424); White Blood Count 8.5 K/mm3 (4.8-10.8)
[2024-11-15 11:24] LABS: Alanine Aminotransferase 18 U/L (12-78); Alkaline Phosphatase 73 U/L (38-126); Anion Gap 15.5 mEq/L (5-15); Aspartate Amino Transferase 20 U/L (17-59); Bilirubin,Direct 0.1 mg/dl (0.0-0.4); Bilirubin,Indirect 0.6 mg/dL (0.0-0.9); Bilirubin,Total 0.7 mg/dl (0.2-1.3); Bilirubin,Unconjugated 0.5 mg/dL (0.0-1.1); Blood Urea Nitrogen 21 mg/dl (9-20); Calcium 9.5 mg/dl (8.4-10.2); Carbon Dioxide 23 mmol/L (22.0-30.0); Chloride 108 mmol/L (98-107); Chol/HDL Ratio 2.2 (1-3.5); Cholesterol 104 mg/dl (140-200); Estimated Glomerular Filt Rate 58 ml/min (>60); GFR (African American) 70 ML/MIN (>60); Glucose 100 mg/dl (74-100); HDL Cholesterol 47 mg/dl (40-60); Magnesium 2.1 mg/dl (1.6-2.3); Potassium 4.5 mmoL/L (3.5-5.1); Sodium 142 mmol/L (136-145); Total Protein,Serum 6.9 g/dl (6.3-8.2); Triglycerides 108 mg/dl (30-150); VLDL Cholesterol 22 mg/dL (0-40)
[2024-11-15 11:35] LABS: Direct LDL Cholesterol 34.52 mg/dL (100-129)
[2024-11-15 11:37] LABS: Free T4 (Free Thyroxine) 0.86 ng/dl (0.78-2.19)
[2024-11-15 11:53] LABS: Thyroid Stimulating Hormone 0.64 uIU/mL (0.465-4.68)
== END 2024-11-15 23:59 | disposition home or self-care (01) ==
LOC: LAB 10:43
PROVIDERS: PCP Nurse Practitioner Family; Visit Provider Nurse Practitioner
DX: I25.10 Atherosclerotic heart disease of native coronary artery without angina pectoris (principal); E78.49 Other hyperlipidemia; R42 Dizziness and giddiness; R53.83 Other fatigue; I10 Essential (primary) hypertension
CPT/HCPCS: 36415; 80048; 80061; 80076; 83735; 84439; 84443; 85025

== ENCOUNTER 2025-04-21 10:12 | Emergency (ER) | payer MEDICARE, SELFPAY ==
--- OUTSIDE RECORDS SUMMARY | 2024-12-08 12:41 | XMS_ITS ---
Author Organization [facility] Billing Info Address [address] [place], [place] [id number] Care Team Providers Care Hotel Casino Floorperson Name Role Phone MILTON CHAMPAGNE [phone] REASON FOR VISIT Med Adh/ AWV due Encounters Encounter Location Date Provider Diagnosis [id number] [facility] [address] [place], [place] [id number] 12/08/2024 MILTON CHAMPAGNE Plan Of Treatment No Information Progress Notes * Juan M BAILEY DDOB: [birth year] (84 yo M)Acc No.[id number]:12/08/2024 Patient: Elham BEDOYA Juan M Jaime :1940 A ge:84 Y S ex:Male Address:[address] [facility] [address] * true * Date: Generated for Printi ng/Faxing/eTransmitting on: 0 04/21/2025 10:27 AM EDT
--- OUTSIDE RECORDS SUMMARY | 2025-03-07 05:36 | XMS_ITS ---
Author Organization [facility] Billing Info Address [address] [place], [place] [address] Care Team Providers Care Laundry Attendant Name Role Phone KENISHA CHAMPAGNEKSANDRA Unavailable [phone] REASON FOR VISIT patient moved Encounters Encounter Location Date Provider Diagnosis [id number] [address] [place], [place] [id number] 03/07/2025 MILTON CHAMPAGNE Plan Of Treatment No Information Progress Notes * Juan M BAILEY DDOB: (84 yo M)Acc No.[id number]:03/07/2025 Patient: Elham AURELIANOJuan M :1940 A ge:84 Y S ex:Male Address:[address] [place], [place] [address]Val[facility] [address] * true * Date: Generated for Printi ng/Faxing/eTransmitting on: 0 04/21/2025 10:27 AM EDT
--- OUTSIDE RECORDS SUMMARY | 2025-03-07 10:53 | XMS_ITS ---
Author Organization [facility] Billing Info Address [address] [place], [place] [address] Care Team Providers Care Ice Cream Freezer Name Role Phone KENISHA CHAMPAGNEKSANDRA Unavailable [phone] REASON FOR VISIT patient moved Encounters Encounter Location Date Provider Diagnosis [id number] [facility] [address] [place], [place] [id number] 03/07/2025 MILTON CHAMPAGNE Plan Of Treatment No Information Progress Notes * Juan M BAILEY DDOB: (84 yo M)Acc No.[id number]:03/07/2025 Patient: Elham AURELIANOJuan M :1940 A ge:84 Y S ex:Male Address:[address] [place], [place] [address]Val[place]ino [facility] [address] * true * Date: Generated for Printi ng/Faxing/eTransmitting on: 0 04/21/2025 10:26 AM EDT
--- OUTSIDE RECORDS SUMMARY | 2025-03-17 13:30 | XMS_ITS | Encounter Summary ---
Author Organization [facility] Address [address] [place] [address] Care Team Providers Care Account Maintenance Representative Name Role Phone FitzgeraldSarahi siegel ZHANE Primary Care Provider [phone]- [phone] Reason for Visit * Auth/Cert Specialty Diagnoses / Procedures Referred By Contac t Referred To Contact Diagnoses Paroxysmal atrial fibrillation Falls frequently Atrial Fibrillation Procedures DC PERQ CLSR TCAT L ATR APNDGE W/ENDOCARDIAL IMPLNT Atrial Appendage Occlusion, hold Eliquis the morning of surgery. Watchman Referral ID Status Reason Start Date Expiration Date Visits Re quested Visits Authorized 1 1 Encounter Details Date Type Department Care Team (Latest Contact Info) Description 03/17/2025 1:30 PM EDT Pre-Admission Testing [facility] T [address] [place] [phone] Paroxysmal atrial fibrillation; Falls frequently Social History Tobacco Use Types Packs/Day Years Used Date Smoking Tobacco: Former Cigarettes 3 16.6 1 950 - 03/1966 Smokeless Tobacco: Former Chew Quit: 02/04/1987 Tobacco Cessation:Counseling Given: Not Answered Alcohol Use Standard Drinks/Week Comments Never 0 (1 standard drink = 0.6 oz pur e alcohol) Abuse Screen Answer Date Recorded Feels Unsafe at Home or Work/School no 03/17/2025 Feels Threatened by Someone no 03/04 Does Anyone Try to Keep You From Having Contact with Others or Doing Things Outside Your Home? no 03/17/2025 Physical Signs of Abuse Present no 03/17/2025 Education Answer Date Recorded Help with school or training? Not on file Preferred Language Palauan 03/17/2025 Sex and Gender Information Value Date Recorded Sex Assigned at Not on file Legal Sex Male 11:42 AM EST Gender Identity Not on file Sexual Orientation Not on file documented as of this encounter OR Notes * PAT - Radha Low RN - 03/17/2025 1:30 PM EDT PAT for CVOU complete documented in this encounter Plan of Treatment Upcoming Encounters Date Type Department Care Team (Late st Contact Info) Description 06/02/2025 11:00 AM EDT Office Visit [facility] CARDIOLOGY [address] [facility] [address] [place] [address] Yandel Torres MD [address] [facility] [address] [place] [address] 06/23/2025 1:00 PM EST Appointment [facility] MRI [address] [place] [address] 09/23/2025 10:00 AM EST Telemedicine [facility] CARDIOLOGY [address] [facility] [address] [place] [address] Nawaf Cormier APRN [address] [facility] [address] [place] [address] documented as of this encounter Procedures Procedure Name Priority Date/Time Associated Diagnosis Comments CBC (NO DIFF) Routine 03/17/2025 1:31 PM EDT Paroxysmal atrial fibrillation Falls frequently BASIC METABOLIC PANEL Routine 03/17/2025 1:31 PM EDT Paroxysmal atrial fibrillation Falls frequently documented in this encounter Results * (ABNORMAL) Basic Metabolic Panel (03/17/2025 1:31 PM EDT) Glucose 114(H) 65 - 99 mg/dL 03/17/2025 2:08 PM EDT [facility] BUN 19.2 8.0 - 23.0 mg/dL 03/17/2025 2:08 PM EDT [facility] Creatinine 1.29(H) 0.76 - 1.27 mg/dL 03/17/2025 2:08 PM EDT [facility] Sodium 138 136 - 145 mmol/L 03/17/2025 2:08 PM EDT [facility] Potassium 4.0 3.5 - 5.2 mmol/L 03/17/2025 2:08 PM EDT [facility] Chloride 108(H) 98 - 107 mmol/L 03/17/2025 2:08 PM EDT [facility] CO2 19.1(L) 22.0 - 29.0 mmol/L 03/17/2025 2:08 PM EDT [facility] Calcium 9.0 8.6 - 10.5 mg/dL 03/17/2025 2:08 PM EDT [facility] BUN/Creatinine Ratio 14.9 7.0 - 25.0 03/17/2025 2:08 PM EDT [facility] Anion Gap 10.9 5.0 - 15.0 mmol/L 03/17/2025 2:08 PM EDT [facility] eGFR 54.3(L) >60.0 mL/min/1.7 3 03/17/2025 2:08 PM EDT [facility] Blood Venipuncture / Unknown 03/17/2025 1:31 PM EDT 03/17/2025 1:45 PM EDT [facility] - 03/17/2025 2:08 PM EDT GFR Categories in Chronic Kidney Disease (CKD) GFR Category GFR (mL/min/1.73) Interpretation G1 90 or greater Normal or high (1) G2 60-89 Mild decrease (1) G3a 45-59 Mild to moderate decrease G3b 30-44 Moderate to severe decrease G4 15-29 Severe decrease G5 14 or less Kidney failure (1)In the absence of evidence of kidney disease, neither GFR category G1 or G2 fulfill the criteria for CKD. eGFR calculation 2020 CKD-EPI creatinine equation, which does not include race as a factor Lety Nath UPHOLSTERY TECH LAB BLOOD ORDERABLES Final Re sult [facility]
[address] [place] [address], * CBC (No Diff) (03/17/2025 1:31 PM EDT) WBC 7.80 3.40 - 10.80 10*3/mm3 03/17/2025 1:53 PM EDT [facility] RBC 4.54 4.14 - 5.80 10*6/mm3 03/17/2025 1:53 PM EDT [facility] Hemoglobin 13.0 13.0 - 17.7 g/dL 03/17/2025 1:53 PM EDT [facility] Hematocrit 40.6 37.5 - 51.0 % 03/17/2025 1:53 PM EDT [facility] MCV 89.4 79.0 - 97.0 fL 03/17/2025 1:53 PM EDT [facility] MCH 28.6 26.6 - 33.0 pg 03/17/2025 1:53 PM EDT [facility] MCHC 32.0 31.5 - 35.7 g/dL 03/17/2025 1:53 PM EDT [facility] RDW 14.8 12.3 - 15.4 % 03/17/2025 1:53 PM EDT [facility] RDW-SD 47.9 37.0 - 54.0 fl 03/17/2025 1:53 PM EDT [facility] MPV 9.0 6.0 - 12.0 fL 03/17/2025 1:53 PM EDT [facility] Platelets 187 140 - 450 10*3/mm3 03/17/2025 1:53 PM EDT [facility] Blood Venipuncture / Unknown 03/17/2025 1:31 PM EDT 03/17/2025 1:45 PM EDT us Lety Nath UPHOLSTERY TECH LAB BLOOD ORDERABLES Final Re sult [facility]
[address] [place] [address], documented in this encounter Visit Diagnoses Diagnosis Paroxysmal atrial fibrillation Atrial fibrillation Falls frequently Personal history of fall documented in this encounter Care Teams Account Maintenance Representative Relationship Specialty Start Date End Date Sarahi Fitzgerald APRN [address] [place] [address] PCP - General Family Medicine 01/13/25 documented as of this encounter
--- OUTSIDE RECORDS SUMMARY | 2025-03-17 14:04 | XMS_ITS | Encounter Summary ---
Author Organization [facility] Address [address] [place] [address] Care Team Providers Care National Facilities Manager Name Role Phone Sarahi Fitzgerald APRN Primary Care Provider +1- [phone] Reason for Referral * MRI/CAT/PET Scan (Routine) - Closed Specialty Diagnoses / Procedures Referred By Anshul garza Referred To Contact Radiology Diagnoses Preop examination Procedures CT Angiogram Chest Yandel Torres MD [address] [address] Phone: tel: fax: Referral ID Status Reason Start Date Expiration Date Visits Re quested Visits Authorized [id number] Closed 03/17/2025 04/18/2026 1 1 Reason for Visit * Auth/Cert Specialty Diagnoses / Procedures Referred By Anshul garza Referred To Contact Diagnoses Paroxysmal atrial fibrillation Falls frequently Atrial Fibrillation Procedures MS PERQ CLSR TCAT L ATR APNDGE W/ENDOCARDIAL IMPLNT Atrial Appendage Occlusion, hold Eliquis the morning of surgery. Watchman Referral ID Status Reason Start Date Expiration Date Visits Re quested Visits Authorized 1 1 Encounter Details Date Type Department Care Team (Latest Contact Info) Description 03/17/2025 2:04 PM EDT - 03/17/2025 11:59 PM EDT Hospital Encounter [address] [place] [id number] Preop examination Discharge Disposition: Home or Self Care Social History Tobacco Use Types Packs/Day Years Used Date Smoking Tobacco: Former Cigarettes 3 16.6 1 950 - 03/1966 Smokeless Tobacco: Former Chew Quit: 02/04/1987 Alcohol Use Standard Drinks/Week Comments Never 0 [...] or training? Not on file Preferred Language Maldivian 03/17/2025 Sex and Gender Information Value Date Recorded Sex Assigned at Not on file Legal Sex Male 11:42 AM EST Gender Identity Not on file Sexual Orientation Not on file documented as of this encounter Medications at Time of Discharge amLODIPine (NORVASC) 10 MG tablet Take 1 tablet by mouth Daily. aspirin 81 MG EC tablet Take 1 tablet by mouth Daily. atorvastatin (LIPITOR) 40 MG tablet Take 1 tablet by mouth Daily. 12/09/2024 clopidogrel (PLAVIX) 75 MG tablet Take 1 tablet by mouth Daily. 90 tablet 3 03/23/2025 eplerenone (INSPRA) 25 MG tablet Take 1 tablet by mouth Daily. ergocalciferol (ERGOCALCIFEROL) 1.25 MG (54203 UT) capsule Take 1 capsule by mouth 1 (One) Time Per Week. 11/01/2024 escitalopram (LEXAPRO) 10 MG tablet Take 1 tablet by mouth Daily. 11/01/2024 furosemide (LASIX) 40 MG tablet Take 1 tablet by mouth Daily. montelukast (SINGULAIR) 10 MG tablet Take 1 tablet by mouth Every Night. omeprazole (priLOSEC) 20 MG capsule Take 20 mg by mouth Daily. apixaban (ELIQUIS) 5 MG tablet tablet Take 1 tablet by mouth 2 (Two) Times a Day. 03/23/2025 documented as of this encounter Plan of Treatment Upcoming Encounters Date Type Department Care Team (Late st Contact Info) Description 06/02/2025 11:00 AM EDT Office Visit [facility] CARDIOLOGY [address] [facility] [address] [place] [phone] Yandel Torres MD [address] [facility] [address] [place] [address] 06/23/2025 1:00 PM EST Appointment [facility] MRI [address] [place] [address] 09/23/2025 10:00 AM EST Telemedicine [facility] CARDIOLOGY [address] [facility] [address] [place] [phone] Nawaf Cormier APRN [address] [facility] [address] [place] [address] documented as of this encounter Procedures Procedure Name Priority Date/Time Associated Diagnosis Comments CT ANGIOGRAM CHEST W WO CONTRAST Routine 03/17/2025 2:33 PM EDT Preop examination documented in this encounter Results * CT Angiogram Chest (03/17/2025 2:33 PM EDT) Anatomical Region Laterality Modality Chest, Vascular N/A Computed Tomogra phy 03/17/2025 4:12 PM EDT Impressions 03/17/2025 4:13 PM EDT 1. Cardiac enlargement without pericardial effusion. 2. No anomalous pulmonary venous return. 3. Left atrial appendage well-opacified without significant thrombus burden. 4. Esophagus traverses the chest posterior to the left atrium along the midline with moderate hiatal hernia noted. Electronically Signed: Jese Moore MD 03/17/2025 4:13 PM EDT Workstation ID: [id number] Narrative 03/17/2025 4:[address] ANGIOGRAM CHEST Date of Exam: 03/17/2025 2:07 PM EDT Indication: Atrial Fibrillation AFib, Watchman. Technique: CTA of the chest was performed before and after the uneventful intravenous administration of 80 mL Isovue-370. Reconstructed coronal and sagittal images were also obtained. In addition, a 3-D volume rendered image was created for interpretation. Automated exposure control and iterative reconstruction methods were used. COMPARISON: None. FINDINGS: Four-chamber cardiac enlargement without pericardial effusion. Patent, nonaneurysmal thoracic aorta. Central pulmonary arteries are grossly patent. No anomalous pulmonary venous return. Left atrial appendage well-opacified without thrombus burden. Central airways are patent. Esophagus courses posterior to the left atrium along the midline with moderate hiatal hernia noted. Extended lung windows are grossly clear. Procedure Note Juan M Moore MD - 03/17/2025 CT ANGIOGRAM CHEST Date of Exam: 03/17/2025 2:07 PM EDT Indication: Atrial Fibrillation AFib, Watchman. Technique: CTA of the chest was performed before and after the uneventfulintravenous administration of 80 mL Isovue-370. Reconstructed coronal andsagittal images were also obtained. In addition, a 3-D volume renderedimage was created for interpretation. Automated exposure control and iterative reconstructionmethods were used. COMPARISON: None. FINDINGS: Four-chamber cardiac enlargement without pericardial effusion.Patent, nonaneurysmal thoracic aorta. Central pulmonary arteries aregrossly patent. No anomalous pulmonary venous return. Left atrialappendage well-opacified without thrombus burden. Central airways are patent. Esophagus courses posterior to theleft atrium along the midline with moderate hiatal hernia noted. Extendedlung windows are grossly clear. IMPRESSION: 1. Cardiac enlargement without pericardial effusion. 2. No anomalous pulmonary venous return. 3. Left atrial appendage well-opacified without significant thrombusburden. 4. Esophagus traverses the chest posterior to the left atrium along themidline with moderate hiatal hernia noted. Electronically Signed: Jese Moore MD 03/17/2025 4:13 PM EDT Workstation ID: [id number] Yandel Torres MD IMG CT ORDERABLES Final Result documented in this encounter Visit Diagnoses Diagnosis Preop examination Unspecified pre-operative examination documented in this encounter Administered Medications Inactive Administered Medications - up to 3 most recent administrations Medication Order MAR Action Action Date Dose Rate Site iopamidol (ISOVUE-370) 76 % injection 100 mL 100 mL, Intravenous, Once in Imaging, On [place]if[place] 03/17/25 at 1410, For 1 dose Given 03/17/2025 2:34 PM EDT 85 mL documented in this encounter Care Teams National Facilities Manager Relationship Specialty Start Date End Date Sarahi Fitzgerald APRN [address] [place] [address] PCP - General Family Medicine 01/13/25 documented as of this encounter
--- OUTSIDE RECORDS SUMMARY | 2025-03-23 07:59 | XMS_ITS | Encounter Summary ---
Author Organization [facility] Address [address] [place] [address] Care Team Providers Care Solution Analyst Name Role Phone LiaSarahi Teresita PHELAN Primary Care Provider [phone] Reason for Referral * Diagnostic Imaging (Routine) - Pending Review Specialty Diagnoses / Procedures Referred By Contac t Referred To Contact Diagnoses AF (paroxysmal atrial fibrillation) Procedures Adult Transesophageal Echo (DAVID) W/ Cont if Necessary Per Protocol Lety Nath APRN [address] [place] [address] Phone: tel: fax: Referral ID Status Reason Start Date Expiration Date V isits Requested Visits Authorized [id number] Pending Review 03/24/2025 06/23/2026 1 1 * Diagnostic Imaging (Routine) - Pending Review Specialty Diagnoses / Procedures Referred By Contac t Referred To Contact Diagnoses Paroxysmal atrial fibrillation Falls frequently Preop examination Procedures Intra-Op Structural Heart DAVID (Cardiology Read) Yandel Torres MD [address] [place] [address] Phone: tel: fax: Referral ID Status Reason Start Date Expiration Date V isits Requested Visits Authorized [id number] Pending Review 03/23/2025 04/18/2026 1 1 * Invasive Procedures (Routine) - Pending Review Specialty Diagnoses / Procedures Referred By Anshul garza Referred To Contact Diagnoses Paroxysmal atrial fibrillation Falls frequently Procedures EP/CRM Study Yandel Torres MD [address] [place] [address] Phone: tel: fax: Referral ID Status Reason Start Date Expiration Date V isits Requested Visits Authorized Pending Review 03/01/2025 05/31/2026 1 1 Reason for Visit * Auth/Cert Specialty Diagnoses / Procedures Referred By Anshul garza Referred To Contact Diagnoses Paroxysmal atrial fibrillation Falls frequently Atrial Fibrillation Procedures IA PERQ CLSR TCAT L ATR APNDGE W/ENDOCARDIAL IMPLNT Atrial Appendage Occlusion, hold Eliquis the morning of surgery. Watchman Referral ID Status Reason Start Date Expiration Date Visits Re quested Visits Authorized 1 1 Encounter Details Date Type Department Care Team (Late st Contact Info) Description 03/23/2025 7:59 AM EDT - 03/23/2025 2:09 PM EDT Hospital Encounter [facility] [address] [place] [address] Yandel Torres MD [address] [place] [address] AF (paroxysmal atrial fibrillation) (Primary Dx); Paroxysmal atrial fibrillation; Falls frequently; Preop examination Discharge Disposition: Home or Self Care Social History Tobacco Use Types Packs/Day Years Used Date Smoking Tobacco: Former Cigarettes 3 16.6 1 950 - 03/1966 Smokeless Tobacco: Former Chew Quit: 02/04/1987 Alcohol Use Standard Drinks/Week Comments Never 0 (1 standard drink = 0.6 oz pur e alcohol) AUDIT-C Answer Date Recorded Q1: How often do you have a drink containing alcohol? Never 03/23/2025 Q2: How many drinks containi ng alcohol do you have on a typical day when you are drinking? Patient does not drink Q3: How often do you have si x or more drinks on one occasion? Never 03/23/2025 Abuse Screen Answer Date Recorded Feels Unsafe at Home or Work/School no 03/23/2025 Feels Threatened by Someone no 03/05 Does Anyone Try to Keep You From Having Contact with Others or Doing Things Outside Your Home? no 03/23/2025 Physical Signs of Abuse Present no 03/23/2025 Housing Stability Answer Date Recorded Current Living Arrangements home 03/05 Potentially Unsafe Housing Conditions Not on basil e 03/23/2025 Disabilities Answer Date Recorded Difficulty Concentrating, Remembering or Making Decisions no 03/23/2025 Difficulty Managing Errands Independently no 03/23/2025 Education Answer Date Recorded Help with school or training? Not on file Preferred Language German 03/17/2025 Sex and Gender Information Value Date Recorded Sex Assigned at Not on file Legal Sex Male 11:42 AM EST Gender Identity Not on file Sexual Orientation Not on file documented as of this encounter Last Filed Vital Signs Vital Sign Reading Time Taken Comments Blood Pressure 115/74 03/23/2025 12:45 PM EDT Pulse 79 03/23/2025 12:45 PM EDT Temperature 36.3 C (97.3 F) 03/23/2025 10:31 AM EDT Respiratory Rate 11 03/23/2025 10:35 AM EDT Oxygen Saturation 95% 03/23/2025 12:45 PM EDT Inhaled Oxygen Concentration - - Weight 97.1 kg (214 lb) 03/23/2025 8:14 AM EDT Height 170.2 cm (5' 7 ) 03/23/2025 8:14 AM EDT Body Mass Index 33.52 03/23/2025 8:14 AM EDT documented in this encounter Functional Status * Question Answer Date of Assessment Author 1. Wish to be (Past 1 Month) No 025 8:30 AM EDT Farrah Brito RN 2. Non-Specific Active Suici noreen Thoughts (Past 1 Month) No 03/23/2025 8:30 AM EDT Farrah Brito RN * Calculated C-SSRS Risk Score (Lifetime/Recent) Answer Date of Assessment Author No Risk Indicated 03/23/2025 8:30 AM EDT Farrah Brito RN * [place] Suicide Severity Rating Scale (Screener/Recent Self-Report) Question Answer Date of Assessment Author 6. Suicidal Behavior (Lifetime) No 8:30 AM EDT Farrah Brito RN documented as of this encounter Discharge Instructions * Attachments The following attachments cannot be sent through Care Everywhere. * Left Atrial Appendage Closure Device Implantation (German) * Left Atrial Appendage Closure Device Implantation Care After (German) * General Anesthesia Adult Care After (German) * Femoral Site Care (German) * Clopidogrel Tablets (German) documented in this encounter Medications at Time of Discharge [...] by mouth Daily. ergocalciferol (ERGOCALCIFEROL) 1.25 MG (41837 UT) capsule Take 1 capsule by mouth 1 (One) Time Per Week. 11/01/2024 escitalopram (LEXAPRO) 10 MG tablet Take 1 tablet by mouth Daily. 11/01/2024 furosemide (LASIX) 40 MG tablet Take 1 tablet by mouth Daily. montelukast (SINGULAIR) 10 MG tablet Take 1 tablet by mouth Every Night. omeprazole (priLOSEC) 20 MG capsule Take 20 mg by mouth Daily. documented as of this encounter H&P Notes * Lety Nath APRN - 03/23/2025 8:22 AM EDT [facility] HISTORY AND PHYSICAL Juan M Burgess : 1940 Date of Admission:03/23/2025 PCP: Sarahi Fitzgerald APRN Chief Complaint: AFL / FALLS PROBLEM LIST: Atrial flutter [id number], (age, HTN) Echo, 2023: grade 2 diastolic dysfunction, mild AI, mild MR, mild TR SSS / Bradycardia SJM DC PPM, 02/11/24 Coronary artery disease Mild non-flow limiting, 2019 Hypertension Hyperlipidemia GERD ALLERGIES: No Known Allergies HOME MEDICINES: Prior to Admission Medications Prescriptions Last Dose Informant Patient Reported? Taking? amLODIPine (NORVASC) 10 MG tablet Self, Medication Bottle Yes No Take 1 tablet by mouth Daily. apixaban (ELIQUIS) 5 MG tablet tablet Self, Medication Bottle Yes No Take 1 tablet by mouth 2 (Two) Times a Day. aspirin 81 MG EC tablet Self, Medication Bottle Yes No Take 1 tablet by mouth Daily. atorvastatin (LIPITOR) 40 MG tablet Self, Medication Bottle Yes No Take 1 tablet by mouth Daily. eplerenone (INSPRA) 25 MG tablet Self, Medication Bottle Yes No Take 1 tablet by mouth Daily. ergocalciferol (ERGOCALCIFEROL) 1.25 MG (39670 UT) capsule Self, Medication Bottle Yes No Take 1 capsule by mouth 1 (One) Time Per Week. escitalopram (LEXAPRO) 10 MG tablet Self, Medication Bottle Yes No Take 1 tablet by mouth Daily. furosemide (LASIX) 40 MG tablet Self, Medication Bottle Yes No Take 1 tablet by mouth Daily. montelukast (SINGULAIR) 10 MG tablet Self, Medication Bottle Yes No Take 1 tablet by mouth Every Night. omeprazole (priLOSEC) 20 MG capsule Self, Medication Bottle Yes No Take 20 mg by mouth Daily. Patient taking differently: Take 2 capsules by mouth Daily. Subjective HPI: Juan M Burgess is a 84 y.o. malewith a past medical history listed above presents to [facility] today for LAAO device implant with general anesthesia. Patient is not a good candidate for long-term anticoagulation due to frequent falls. Patient currently denies chest pain, sh ortness of breath, palpitations, LH, and syncope. Patient is anticoagulated and denies any bleedingcomplications or strokelike symptoms. ROS: All systems have been reviewed and are negative with the exception of those mentioned in the HPI and problem list above. Past Medical History: Past Medical History: Diagnosis Date Abnormal heart rhythm Acid reflux Atrial fibrillation Hypertension Kidney stone Sinusitis SOB (shortness of breath) Surgical History: Past Surgical History: Procedure Laterality Date CARDIAC CATHETERIZATION stent x1 CHOLECYSTECTOMY COLONOSCOPY PACEMAKER IMPLANTATION Dr. Macario [place] REPLACEMENT TOTAL KNEE BILATERAL ROTATOR CUFF REPAIR Bilateral Social History: Social History Socioeconomic History Marital status: Tobacco Use Smoking status: Former Current packs/day: 0.00 Average packs/day: 3.0 packs/day for 16.6 years (49.7 ttl pk-yrs) Types: Cigarettes Start date: 1949 Quit date: 03/1966 Years since quittin.0 Smokeless tobacco: Former Types: Chew Quit date: 02/04/1987 Vaping Use Vaping status: Never Used Substance and Sexual Activity Alcohol use: Never Drug use: Never Sexual activity: Defer Family History: No family history on file. Objective Blood pressure 133/75, heart rate 80 bpm, oxygen 95% on room air PHYSICAL EXAM: CONSTITUTIONAL: Well nourished, cooperative, in no acute distress HEENT: Normocephalic, atraumatic, PERRLA, no JVD CARDIOVASCULAR: Regular rhythm and normal rate, no murmur, gallop, rub. RESPIRATORY: Clear to auscultation, normal respiratory effort, no wheezing, rales or ronchi, on RA EXTREMITIES: No gross deformities, no edema. Peripheral pulses are present and equal bilaterally SKIN: Warm, dry. No bleeding, bruising or rash NEUROLOGICAL: No focal deficits PSYCHIATRIC: Normal mood and affect. Behavior is normal Labs/Diagnostic Data Results from last 7 days Lab Units 03/17/25 1331 SODIUM mmol/L 138 POTASSIUM mmol/L 4.0 CHLORIDE mmol/L 108* CO2 mmol/L 19.1* BUN mg/dL 19.2 CREATININE mg/dL 1.29* GLUCOSE mg/dL 114* CALCIUM mg/dL 9.0 Results from last 7 days Lab Units 03/17/25 1331 WBC 10*3/mm3 7.80 HEMOGLOBIN g/dL 13.0 HEMATOCRIT % 40.6 PLATELETS 10*3/mm3 187 EKG/Telemetry: paced Radiology Data: No radiology results for the last day Current Medications: ceFAZolin, 2,000 mg, Intravenous, Once famotidine, 20 mg, Intravenous, Once famotidine, 20 mg, Oral, Once sodium chloride, 10 mL, Intravenous, Q12H sodium chloride, 10 mL, Intravenous, Q12H [START ON 03/24/2025] lactated ringers, 9 mL/hr Assessment: Atrial fibrillation [id number], anticoagulated with Eliquis Patient is not a good candidate for long-term anticoagulation due to frequent falling Echo, 12/2023: EF 55%, grade 2 diastolic dysfunction, mild AI, mild MR, mild TR Falls SSS / Bradycardia SJM DC PPM, 02/11/24 Hypertension Plan: Patient is here today for LAAO device implant with general anesthesia. Patient will receive 2 g Ancef for surgical prophylaxis. Procedure, risks, and alternatives have been discussed with the patientand they are agreeable to proceed. Further recommendations to follow. Electronically signed by Lety Nath APRN, 03/23/25, 8:22 AM EDT. Please note that portions of this note were dictated utilizing [employer] dictation. Cosigned by Yandel Torres MD at 03/23/2025 6:32 PM EDT Associated attestation - Yandel Torres MD - 03/23/2025 6:32 PM EDT I have reviewed this documentation and agree. documented in this encounter Nursing Notes * Lynda Gabriel RN - 03/23/2025 10:47 AM EDT LAAO Procedure Information Juan M Morel Aditya [address] [place] [address] (home) FAYE Orifice Maximal Width: 18 mm Cumulative Air Kerma: 62 mGy Contrast Volume: 10 mL Dose Area Product: 525.14 ?Gy-M2 * Lynda Gabriel RN - 03/09/2025 11:51 AM EDT PRE-LAAO HISTORY Juan M Morel Aditya [address] [place] [address] (home) Referring MD: Sarahi Fitzgerald, ZHANE Information obtained from: [x] Medical record review [x] Patient report Scheduled for: LAAO implant on March 23, [address] Torres SDM Visit: Sarahi Fitzgerald APRN CHADS-VASc Risk Assessment 4 Total Score 1 Hypertension 2 1 Age >/= 75 Vascular Disease Criteria that do not apply: CHF DM PRIOR STROKE/TIA/THROMBO Age 65-74 Sex: Female History & Risk Factors (prior to LAAO implant) [id number] Risk Factors: Congestive HF [x] No [] Yes LV Dysfunction [x] No [] Yes Hypertension [] No [x] Yes Diabetes [x] No [] Yes Stroke [x] No [] Yes TIA [x] No [] Yes Thromboembolism [x] No [] Yes Vascular Disease [] No [x] Yes If Yes, Type [] Prior [place] [x] CAD [] Aortic Plaque Statin if indicated [] No [x] Yes- Lipitor (CAD, CVA/TIA, PVA, DM) HAS-BLED Risk Factors: HTN (uncontrolled) [] No [x] Yes Abnormal Renal Fxn [x] No [] Yes Abnormal Liver Fxn [x] No [] Yes Stroke [x] No [] Yes Bleeding event [x] No [] Yes Labile INR [x] No [] Yes Alcohol [x] No [] Yes Antiplatelets [x] No [] Yes NSAIDS [x] No [] Yes Indication: Falls Additional Stroke & Bleeding Risk Factors: Increased Fall Risk [] No [x] Yes Bleeding Event [x] No [] Yes If Yes, Type [] Intracranial [] Epistaxis [] GI [] Other Rhythm History: AFIBTYPE: paroxysmal Valvular AFib [x] No [] Yes If Yes, Rheum Valve Disease [] No [] Yes If Yes, Mitral Valve Replacement [] No [] Yes If Yes, Mechanical? [] No [] Yes If Yes, Mitral Valve Repair [] No [] Yes Attempt at AFib Termination: [] No [x] Yes If Yes, pharmacologic CV [x] No [] Yes If Yes, DC cardioversion [] No [x] Yes If Yes, catheter ablation [x] No [] Yes If Yes, Date of most recent: Atrial Flutter [] No [x] Yes If Yes, attempt at termination [x] No [] Yes If Yes, pharmacologic cardioversion [x] No [] Yes If Yes, DC cardioversion [x] No [] Yes If Yes, catheter ablation [x] No [] Yes If Yes, Date of most recent: FAYE Intervention [x] No [] Yes Additional History & Risk Factors: Cardiomyopathy [x] No [] Yes Chronic Lung Disease [x] No [] Yes Coronary Artery Disease [] No [x] Yes Sleep Apnea [x] No [] Yes Epicardial Approach Considered [x] No [] Yes Diagnostic Studies: Last Echo: [x] TTE Date: 01/02/2024 EF: 55 % LA: 3.70 cm VHD: Mild MR and TR. Bao, arb arni for EF < 40% Pre-procedure blood thinner medications: Hold Eliquis the morning of surgery. Discussed pre procedure workup, procedure, recovery and follow up appointments along with medication options. 03/09/25 11:51 EDT [facility] Revised 08/28/2023 Cosigned by Yandel Torres MD at 03/10/2025 5:12 PM EDT Associated attestation - Yandel Torres MD - 03/10/2025 5:12 PM EDT I have reviewed this documentation and agree. documented in this encounter Plan of Treatment Upcoming Encounters Date Type Department Care Team (Late st Contact Info) Description 06/02/2025 11:00 AM EDT Office Visit [facility] [address] [facility] [address] [place] [phone] Yandel Torres MD [address] [facility] [address] [place] [address] 06/23/2025 1:00 PM EST Appointment [facility] MRI [address] [place] [id number] 09/23/2025 10:00 AM EST Telemedicine [facility] [address] [facility] [address] [place] [id number] Nawaf Cormier APRN [address] [place] [id number] Scheduled Orders Name Type Priority Associated Diagnoses Order Schedule Adult Transesophageal Echo (DAVID) W/ Cont if Necessary Per Protocol Echocardiography Routine AF (paroxysmal atrial fibrillation) Expected: 05/08/2025, Expires: 03/24/2026 documented as of this encounter Procedures Procedure Name Priority Date/Time Associated Diagnosis Comments EP STUDY Routine 03/23/2025 10:25 AM EDT Paroxysmal atrial fibrillation Falls frequently POCT ACTIVATED CLOTTING TIME Routine 03/23/2025 10:16 AM EDT INTRA-OP STRUCTURAL HEART DAVID (CARDIOLOGY READ) Routine 03/23/2025 9:25 AM EDT Paroxysmal atrial fibrillation Falls frequently Preop examination CBC (NO DIFF) STAT 03/23/2025 8:25 AM EDT BASIC METABOLIC PANEL STAT 03/23/2025 8:25 AM EDT documented in this encounter Results * ATRIAL APPENDAGE OCCLUSION - CAR (03/23/2025 10:25 AM EDT) Anatomical Region Laterality Modality X-Ray Angiograph y Narrative 03/23/2025 10:41 AM EDT Images from the original result were not included. FINAL IMPRESSIONS: 1. Successful insertion of a 22 mm Amulet Amplatzer left atrial appendage occlusive device. 2. Successful transseptal catheterization to the left atrium x 1. 3. Successful intracardiac ultrasound monitoring. RECOMMENDATION(S): 1. The patient will be monitored on telemetry. If stable, the patient will be discharged to home in the morning. Yandel Torres MD 03/23/25 10:35 EDT Procedure Narrative DATE OF PROCEDURE: 03/23/25 MEDICAL ART THERAPIST/NAIL CUTTER: Yandel Torres MD PROCEDURE(S) PERFORMED: 1. Insertion of a left atrial appendage occlusive device (Amulet Amplatzer). 2. Transseptal catheterization to the left atrium x1. 3. Intracardiac ultrasound monitoring. INDICATIONS FOR PROCDEDURE: - AF - multiple falls - high risk of bleeding Anesthesia: General MEDICATION(S) GIVEN TO PATIENT DURING THIS PROCEDURE: General anesthesia, heparin, dye, protamine DESCRIPTION(S) OF THE PROCEDURE: The patient was brought to the cardiovascular electrophysiology laboratory in a non-sedated state. The risks and benefits of conscious sedation and insertion of a left atrial appendage occlusive device were explained to the patient and written, informed consent was obtained. The patient was prepped and draped in the usual sterile manner. Access through the right femoral vein was achieved x 2 using the modified Seldinger technique and the following sheaths and catheters were inserted: 1. An 8-Tristanian, intracardiac ultrasound catheter was advanced via a 9-Tristanian sheath in the right femoral vein to the high right atrium for visualization of left atrial structures. 2. A 22 mm left atrial appendage occlusive Amulet Amplatzer device was advanced via a 14 Tristanian sheath to the left atrial appendage for insertion. The patient arrived in the clinical electrophysiology laboratory in [facility] with a heart rate of 60 bpm. Intracardiac ultrasound demonstrated no left atrial appendage thrombus or significant left atrial smoke. Transseptal catheterization to the left atrium was then performed x 1 using a Diag transseptal needle and guided with the use of intracardiac ultrasound. Intravenous heparin was initiated during the study to maintain activated clotting times greater than 300 seconds. The 8 Tristanian Daig transseptal sheath was exchanged for a 14 Tristanian double curved Amulet sheath in the left atrium. A 6 Tristanian pigtail catheter was then advanced in the left atrial appendage. Venograms of the left atrial appendage was then performed in 2 views. The 14 Tristanian sheath was advanced over the pigtail in the appendage. A 22 mm Amulet Amplatzer device was then left in place. A 22 mm Amulet Amplatzer device was then deployed in the left atrial appendage ostially and left in place. No significant leakage around the device was seen by DAVID. A tug test was performed which demonstrated excellent stability as well. After multiple measurements confirmed the stability of the device with no significant macrina-device leakage by DAVID, the device was left in place. No pericardial effusion was seen at the end this study. The sheaths and catheters are removed and with Perclose closure system. Hemostasis was adequate. Estimated blood loss was minimal. The patient tolerated the procedure without difficulty and was transferred to their room in stable condition. COMPLICATIONS: None. us Yandel Torres MD CV ELECTROPHYSIOLOGY ORDERABLES Final Result * (ABNORMAL) POC Activated Clotting Time (03/23/2025 10:16 AM EDT) Activated Clotting Time 348(H) 82 - 152 Seconds 03/31/2025 5:11 AM EDT [facility] Comment:Serial Number: [id number] 7Operator: [id number] Blood 03/23/2025 10:1 6 AM EDT 03/31/2025 5:11 AM EDT us Yandel Torres MD POINT OF CARE TEST ORDERABLES Fi nal Result [facility]
[address] [place] [address], * Intra-Op Structural Heart DAVID (Cardiology Read) (03/23/2025 9:25 AM EDT) TR max wendy 248.0 cm/sec Ao pk wendy 199.0 cm/sec Ao max PG 15.8 mmHg Ao mean PG 10.0 mmHg Ao V2 VTI 49.7 cm TR max PG 24.6 mmHg BH CV VAS BP RIGHT ARM 153/84 mmHg Ao root diam 3.6 cm Anatomical Region Laterality Modality Ultrasound Narrative 03/23/2025 2:08 PM EDT There is a 22 mm Amulet Amplatzer left atrial appendage occlusive device present. Device is well-seated with no periprosthetic flow. Device placed under DAVID guidance Left ventricular ejection fraction appears to be 56 - 60%. Left ventricular wall thickness is consistent with mild to moderate concentric hypertrophy. The left atrial cavity is moderately dilated. Mild aortic valve stenosis is present. Peak velocity of the flow distal to the aortic valve is 199 cm/s. Aortic valve maximum pressure gradient is 16 mmHg. Aortic valve mean pressure gradient is 10 mmHg. Moderate tricuspid valve regurgitation is present. Estimated right ventricular systolic pressure from tricuspid regurgitation is normal (<35 mmHg). Left Ventricle Left ventricular ejection fraction appears to be 56 - 60%. Left ventricular wall thickness is consistent with mild to moderate concentric hypertrophy. Right Ventricle Normal right ventricular cavity size and systolic function noted. Electronic lead present in the ventricle. Left Atrium The left atrial cavity is moderately dilated. No evidence of a left atrial appendage thrombus was present. Left atrial appendage occlusion device noted. There is a 22 mm Amulet Amplatzer left atrial appendage occlusive device present. Right Atrium Normal right atrial cavity size noted. Mitral Valve The mitral valve is structurally normal with no significant stenosis present. Mild to moderate mitral valve regurgitation is present. Tricuspid Valve The tricuspid valve is structurally normal with no stenosis present. Moderate tricuspid valve regurgitation is present. Estimated right ventricular systolic pressure from tricuspid regurgitation is normal (<35 mmHg). Aortic Valve The aortic valve is abnormal in structure. There is mild calcification of the aortic valve. The aortic valve appears trileaflet. Mild aortic valve regurgitation is present. Mild aortic valve stenosis is present. Peak velocity of the flow distal to the aortic valve is 199 cm/s. Aortic valve maximum pressure gradient is 15.8 mmHg. Aortic valve mean pressure gradient is 10.0 mmHg. Pulmonic Valve The pulmonic valve is structurally normal. There is no significant pulmonic valve regurgitation present. Pericardium The pericardium is normal. There is no evidence of pericardial effusion. . Greater Vessels No dilation of the aortic root is present. No dilation of the sinuses of Valsalva is present. DAVID Procedure Details A transesophageal echocardiogram was performed for guidance of a transcatheter intracardiac or great vessel(s): FAYE Occlusion/Closure. 3D rendering, reconstruction & interpretation was performed under concurrent supervision. The 3D imaging probe was used to image the heart. Acquisitions were captured in real-time 3D and full volume to assess FAYE anatomy. Informed consent for Transesophageal Echocardiogram, and use of contrast as needed, was obtained prior to the procedure. The procedure was performed in the cleaner laboratory equipment. Patient was noted to be in a fasting state, with a peripheral IV in place. A bite block was placed for probe protection. Anesthesia monitored sedation was administered by anesthesia staff. Please see notes for documentation. An adult multi-frequency, multiplane transesophageal echocardiographic endoscope was inserted and manipulated in the standard fashion to achieve multiplane views. Transesophageal probe was able to be passed without difficulty. Usual basal, mid-esophageal, transgastric, and aortic views were obtained. The patient's vital signs, including blood pressure, heart rate, pulse oximetry, and cardiac rhythm were monitored throughout the procedure. Vitals signs remained stable throughout the study. Post-procedural recovery was completed in the Cardio-Vascular/Close Observation Unit, The patient tolerated the procedure without evidence of oropharyngeal or esophageal trauma. Yandel Torres MD CV ECHO ORDERABLES Final Result * (ABNORMAL) Basic Metabolic Panel (03/23/2025 8:25 AM EDT) Glucose 104(H) 65 - 99 mg/dL 03/23/2025 9:13 AM EDT [facility] BUN 15.4 8.0 - 23.0 mg/dL 03/23/2025 9:13 AM EDT [facility] Creatinine 1.18 0.76 - 1.27 mg/dL 03/23/2025 9:13 AM EDT [facility] Sodium 142 136 - 145 mmol/L 03/23/2025 9:13 AM EDT [facility] Potassium 4.7 3.5 - 5.2 mmol/L 03/23/2025 9:13 AM EDT [facility] Chloride 108(H) 98 - 107 mmol/L 03/23/2025 9:13 AM EDT [facility] CO2 26.0 22.0 - 29.0 mmol/L 03/23/2025 9:13 AM EDT [facility] Calcium 8.7 8.6 - 10.5 mg/dL 03/23/2025 9:13 AM EDT [facility] BUN/Creatinine Ratio 13.1 7.0 - 25.0 03/23/2025 9:13 AM EDT [facility] Anion Gap 8.0 5.0 - 15.0 mmol/L 03/23/2025 9:13 AM EDT [facility] eGFR 60.5 >60.0 mL/min/1.7 3 03/23/2025 9:13 AM T [facility] Blood Line / Unknown 03/23/2025 8: 25 AM EDT 03/23/2025 8:35 AM EDT [facility] - 03/23/2025 9:13 AM EDT GFR Categories in Chronic Kidney Disease [...] does not include race as a factor us Lety Nath APRN LAB BLOOD ORDERABLES Final Re sult [facility]
[address] [place] [address], * CBC (No Diff) (03/23/2025 8:25 AM EDT) WBC 6.56 3.40 - 10.80 10*3/mm3 03/23/2025 8:40 AM EDT [facility] RBC 4.47 4.14 - 5.80 10*6/mm3 03/23/2025 8:40 AM EDT [facility] Hemoglobin 13.0 13.0 - 17.7 g/dL 03/23/2025 8:40 AM EDT [facility] Hematocrit 40.2 37.5 - 51.0 % 03/23/2025 8:40 AM EDT [facility] MCV 89.9 79.0 - 97.0 fL 03/23/2025 8:40 AM EDT [facility] MCH 29.1 26.6 - 33.0 pg 03/23/2025 8:40 AM EDT [facility] MCHC 32.3 31.5 - 35.7 g/dL 03/23/2025 8:40 AM EDT [facility] RDW 14.9 12.3 - 15.4 % 03/23/2025 8:40 AM EDT [facility] RDW-SD 48.6 37.0 - 54.0 fl 03/23/2025 8:40 AM EDT [facility] MPV 9.0 6.0 - 12.0 fL 03/23/2025 8:40 AM EDT [facility] Platelets 172 140 - 450 10*3/mm3 03/23/2025 8:40 AM EDT [facility] Blood Line / Unknown 03/23/2025 8: 25 AM EDT 03/23/2025 8:35 AM EDT Lety Nath APRN LAB BLOOD ORDERABLES Final Re sult [facility]
[address] [place] [address], documented in this encounter Visit Diagnoses Diagnosis Falls frequently- Primary Personal history of fall Paroxysmal atrial fibrillation Atrial fibrillation Falls frequently Personal history of fall Preop examination Unspecified pre-operative examination AF (paroxysmal atrial fibrillation) Atrial fibrillation Paroxysmal atrial fibrillation Atrial fibrillation AF (paroxysmal atrial fibrillation) Atrial fibrillation Paroxysmal atrial fibrillation Atrial fibrillation Falls frequently Personal history of fall documented in this encounter Admitting Diagnoses Diagnosis Paroxysmal atrial fibrillation Atrial fibrillation Falls frequently Personal history of fall AF (paroxysmal atrial fibrillation) Atrial fibrillation documented in this encounter Administered Medications Inactive Administered Medications - up to 3 most recent administrations Medication Order MAR Action Action Date Dose Rate Site famotidine (PEPCID) tablet 20 mg 20 mg, Oral, Once, On Fri03/23/25 at 0807, For 1 dose Given 03/23/2025 8:39 AM EDT 20 mg lactated ringers infusion 9 mL/hr, Intravenous, Continuous, Starting on Gifty 03/24/25 at 0600, For 1 day, May switch to NS IV at KVO if renal / if indicated New Bag 03/23/2025 9:30 AM EDT lidocaine PF 1% (XYLOCAINE) injection 0.5 mL 0.5 mL, Injection, Once As Needed, IV Start, Starting on Fri03/23/25 at 0805, For 1 dose midazolam (VERSED) injection 0.5 mg 0.5 mg, Intravenous, Every 10 Minutes PRN, Anxiety prophylaxis, Pre-op comfort, Starting on Fri03/23/25 at 0805, For 2 doses, May repeat dose in 10 minutes one time then contact provider for additional orders. If given IV Push: give slowly over at least 2 minutes, unless provider at bedside for induction. (ARMIN) sodium chloride 0.9 % flush 10 mL 10 mL, Intravenous, Every 12 Hours Scheduled, First dose on Fri03/23/25 at 0900 sodium chloride 0.9 % flush 10 mL 10 mL, Intravenous, As Needed, Line Care, Starting on Fri03/23/25 at 0805 documented in this encounter Active and Recently Administered Medications Times are shown in EDT. Scheduled Medication Order 03/21/2025 03/22/2025 03/23/2025 ceFAZolin 2000 mg IVPB in 100 mL NS (MBP) (COMPLETED) 2,000 mg, Intravenous, Administer over 30 Minutes, Once, On Fri03/23/25 at 0820, For 1 dose, Caution: Look alike/sound alike drug alert, Indications: Surgical Prophylaxis 0940 (New Bag - Prov ider: Lindy Powers CRNA) famotidine (PEPCID) injection 20 mg 20 mg, Intravenous, Once, On Fri03/23/25 at 0807, For 1 dose, Give IV push over 2 minutes. 0807 (Due) famotidine (PEPCID) tablet 20 mg (COMPLETED) 20 mg, Oral, Once, On Fri03/23/25 at 0807, For 1 dose 0839 (Given - Provid er: Farrah Brito RN) sodium chloride 0.9 % flush 10 mL 10 mL, Intravenous, Every 12 Hours Scheduled, First dose on Fri03/23/25 at 0900 0900 (Due) Continuous Medication Order 03/21/2025 03/22/2025 03/23/2025 lactated ringers infusion 9 mL/hr, Intravenous, Continuous, Starting on Gifty 03/24/25 at 0600, For 1 day, May switch to NS IV at KVO if renal / if indicated 0930 (New Bag - Prov ider: Lindy Powers CRNA)1031 (Anesthesia Volume Adjustment - Provider: Lindy Powers CRNA)1610 (Due: Order Ending - Provider: Automatic Discharge Provider - Comment: [Order ends at this time. Document the following action when infusion is complete: Stopped]) PRN Medication Order 03/21/2025 03/22/2025 03/23/2025 bupivacaine (MARCAINE) 0.5 % injection (CANCELED) Code / Trauma / Sedation Medication, Starting on Fri03/23/25 at 0959 0959 (Given - Provid er: Yandel Torres MD) heparin (porcine) injection (CANCELED) Code / Trauma / Sedation Medication, Starting on Fri03/23/25 at 1002 1002 (Given - Provid er: Delvis Travis, RN) iopamidol (ISOVUE-370) 76 % injection (CANCELED) Code / Trauma / Sedation Medication, Starting on Fri03/23/25 at 1011 1011 (Canceled Entry - Provider: Yandel Torres MD)1023 (Given - Provider: Yandel Torres MD) lidocaine (XYLOCAINE) 1 % injection (CANCELED) Code / Trauma / Sedation Medication, Starting on Fri03/23/25 at 0959 0959 (Given - Provid er: Yandel Torres MD) lidocaine PF 1% (XYLOCAINE) injection 0.5 mL 0.5 mL, Injection, Once As Needed, IV Start, Starting on Fri03/23/25 at 0805, For 1 dose midazolam (VERSED) injection 0.5 mg 0.5 mg, Intravenous, Every 10 Minutes PRN, Anxiety prophylaxis, Pre-op comfort, Starting on Fri03/23/25 at 0805, For 2 doses, May repeat dose in 10 minutes one time then contact provider for additional orders. If given IV Push: give slowly over at least 2 minutes, unless provider at bedside for induction. (ARMIN) protamine injection (CANCELED) Code / Trauma / Sedation Medication, Starting on Fri03/23/25 at 1022 1022 (Given - Provid er: Delvis Travis, RN) sodium chloride 0.9 % flush 10 mL 10 mL, Intravenous, As Needed, Line Care, Starting on Fri03/23/25 at 0805 documented in this encounter Care Teams Solution Analyst Relationship Specialty Start Date End Date Sarahi Fitzgerald APRN [address] [place] [address] PCP - General Family Medicine 01/13/25 documented as of this encounter
--- OUTSIDE RECORDS SUMMARY | 2025-03-23 09:10 | XMS_ITS | Encounter Summary ---
Author Organization [facility] Address [address] [place] [address] Care Team Providers Care Oil Process Stillman Name Role Phone Sarahi Fitzgerald ZHANE Primary Care Provider [phone] Reason for Visit * Auth/Cert Specialty Diagnoses / Procedures Referred By Anshul t Referred To Contact Diagnoses Paroxysmal atrial fibrillation Falls frequently Atrial Fibrillation Procedures CO PERQ CLSR TCAT L ATR APNDGE W/ENDOCARDIAL IMPLNT Atrial Appendage Occlusion, hold Eliquis the morning of surgery. Ronit Referral ID Status Reason Start Date Expiration Date Visits Re quested Visits Authorized 1 1 Encounter Details Date Type Department Care Team (Late st Contact Info) Description 03/23/2025 9:10 AM EDT - 03/23/2025 11:10 AM EDT Surgery [facility] [address] [place] [id number] Yandel Torres MD [address] [facility] [address] [place] [id number] Atrial Appendage Occlusion, hold Eliquis the morning of surgery. [place] [[id number] (CPT )] Social History Tobacco Use Types Packs/Day Years [...] or training? Not on file Preferred Language Palestinian 03/17/2025 Sex and Gender Information Value Date Recorded Sex Assigned at Not on file Legal Sex Male 11:42 AM EST Gender Identity Not on file Sexual Orientation Not on file documented as of this encounter Last Filed Vital Signs Vital Sign Reading Time Taken Comments Blood Pressure 112/75 03/23/2025 11:00 AM EDT Pulse 80 03/23/2025 11:00 AM EDT Temperature 36.3 C (97.3 F) 03/23/2025 10:31 AM EDT Respiratory Rate 11 03/23/2025 10:35 AM EDT Oxygen Saturation 98% 03/23/2025 11:00 AM EDT Inhaled Oxygen Concentration - - Weight 97.1 kg (214 lb) 03/23/2025 8:14 AM EDT Height 170.2 cm (5' 7 ) 03/23/2025 8:14 AM EDT Body Mass Index 33.52 03/23/2025 8:14 AM EDT documented in this encounter Functional Status * Question Answer Date of Assessment Author 1. Wish to be (Past 1 Month) No 025 8:30 AM EDT Farrah Brito, RN 2. Non-Specific Active Suici noreen Thoughts (Past 1 Month) No 03/23/2025 8:30 AM EDT Farrah Brito RN * Calculated C-SSRS Risk Score (Lifetime/Recent) Answer Date of Assessment Author No Risk Indicated 03/23/2025 8:30 AM EDT Farrah Brito RN * [place] Suicide Severity Rating Scale (Screener/Recent Self-Report) Question Answer Date of Assessment Author 6. Suicidal Behavior (Lifetime) No 8:30 AM EDT Farrah Brito RN documented as of this encounter Discharge Instructions * Attachments The following attachments cannot be sent through Care Everywhere. * Left Atrial Appendage Closure Device Implantation (Palestinian) * Left Atrial Appendage Closure Device Implantation Care After (Palestinian) * General Anesthesia Adult Care After (Palestinian) * Femoral Site Care (Palestinian) * Clopidogrel Tablets (Palestinian) documented in this encounter Medications at Time [...] by mouth Daily. ergocalciferol (ERGOCALCIFEROL) 1.25 MG (51452 UT) capsule Take 1 capsule by mouth [...] Nath APRN - 03/23/2025 8:22 AM EDT [facility] HISTORY AND PHYSICAL Juan M Burgess : 1940 Date of Admission:03/23/2025 PCP: Sarahi Fitzgerald APRN Chief Complaint: AFL / FALLS PROBLEM LIST: Atrial flutter [id number], (age, HTN) Echo, 2023: grade 2 [...] by mouth Daily. ergocalciferol (ERGOCALCIFEROL) 1.25 MG (92249 UT) capsule Self, Medication Bottle Yes No [...] past medical history listed above presents to [facility] today for LAAO device implant with general [...] x1 CHOLECYSTECTOMY COLONOSCOPY PACEMAKER IMPLANTATION Dr. Macario [place] REPLACEMENT TOTAL KNEE BILATERAL ROTATOR CUFF REPAIR [...] lactated ringers, 9 mL/hr Assessment: Atrial fibrillation [id number] 3, anticoagulated with Eliquis Patient is not [...] portions of this note were dictated utilizing [employer] dictation. Cosigned by Yandel Torres MD at 03/23/2025 6:32 PM EDT Associated attestation - Yandel Torres MD - 03/23/2025 6:32 PM EDT I have reviewed this documentation and agree. documented in this encounter Nursing Notes * Lynda Gabriel RN - 03/23/2025 10:47 AM EDT LAAO Procedure Information Juan M Burgess [address] [place] [address] (home) FAYE Orifice Maximal Width: 18 mm Cumulative Air Kerma: 62 mGy Contrast Volume: 10 mL Dose Area Product: 525.14 ?Gy-M2 * Lynda Gabriel RN - 03/09/2025 11:51 AM EDT PRE-LAAO HISTORY Juan M Burgess [address] [place] [address] (home) Referring MD: Sarahi Fitzgerald APRN Information obtained from: [x] Medical record review [x] Patient report Scheduled for: LAAO implant on March 23, [address] Torres SDM Visit: Sarahi Fitzgerald APRN CHADS-VASc Risk Assessment 4 Total Score 1 Hypertension 2 1 Age >/= 75 Vascular Disease Criteria that do not apply: CHF DM PRIOR STROKE/TIA/THROMBO Age 65-74 Sex: Female History & Risk Factors (prior to LAAO implant) [id number] Risk Factors: Congestive HF [x] No [] Yes LV Dysfunction [x] No [] Yes Hypertension [] No [x] Yes Diabetes [x] No [] Yes Stroke [x] No [] Yes TIA [x] No [] Yes Thromboembolism [x] No [] Yes Vascular Disease [] No [x] Yes If Yes, Type [] Prior SC [x] CAD [] Aortic Plaque Statin if [...] along with medication options. 03/09/25 11:51 EDT [facility] Revised 08/28/2023 Cosigned by Yandel Torres MD at 03/10/2025 5:12 PM EDT Associated attestation - Yandel Torres MD - 03/10/2025 5:12 PM EDT I have reviewed this documentation and agree. documented in this encounter Plan of Treatment Upcoming Encounters Date Type Department Care Team (Late st Contact Info) Description 06/02/2025 11:00 AM EDT Office Visit [facility] [address] [facility] [address] [place] [phone] Yandel Torres MD [address] [place] [address] 06/23/2025 1:00 PM EST Appointment [facility] [address] [place] [phone] 09/23/2025 10:00 AM EST Telemedicine [facility] [address] [place] [phone] Nawaf Cormier APRN [address] [place] [address] Scheduled Orders Name Type Priority Associated Diagnoses [...] EDT Procedure Narrative DATE OF PROCEDURE: 03/23/25 JAVA SCALA DEVELOPER/PLACEMENT DIRECTOR: Yandel Torres MD PROCEDURE(S) PERFORMED: 1. Insertion [...] sheaths and catheters were inserted: 1. An 8-Vietnamese, intracardiac ultrasound catheter was advanced via a 9-Vietnamese sheath in the right femoral vein to the high right atrium for visualization of left atrial structures. 2. A 22 mm left atrial appendage occlusive Amulet Amplatzer device was advanced via a 14 Vietnamese sheath to the left atrial appendage for insertion. The patient arrived in the clinical electrophysiology laboratory in [facility] with a heart rate of 60 bpm. Intracardiac ultrasound demonstrated no left atrial appendage thrombus or significant left atrial smoke. Transseptal catheterization to the left atrium was then performed x 1 using a Diag transseptal needle and guided with the use of intracardiac ultrasound. Intravenous heparin was initiated during the study to maintain activated clotting times greater than 300 seconds. The 8 Vietnamese Daig transseptal sheath was exchanged for a 14 Vietnamese double curved Amulet sheath in the left atrium. A 6 Vietnamese pigtail catheter was then advanced in the left atrial appendage. Venograms of the left atrial appendage was then performed in 2 views. The 14 Vietnamese sheath was advanced over the pigtail in [...] Activated Clotting Time (03/23/2025 10:16 AM EDT) [facility] Activated Clotting Time 348(H) 82 - 152 Seconds 03/31/2025 5:11 AM EDT [facility] Comment:Serial Number: [id number] 7Operator: [id number] Blood 03/23/2025 10:1 6 AM EDT 03/31/2025 5:11 AM EDT Yandel Torres MD POINT OF CARE TEST ORDERABLES Fi nal Result [facility]
[address] [place] [address], * Intra-Op Structural Heart DAVID (Cardiology Read) (03/23/2025 9:25 AM EDT) [facility] TR max wendy 248.0 cm/sec Ao pk [...] procedure. The procedure was performed in the cardiac catheterization technician. Patient was noted to be in a [...] without evidence of oropharyngeal or esophageal trauma. us Yandel Torres MD CV ECHO ORDERABLES Final Result * (ABNORMAL) Basic Metabolic Panel (03/23/2025 8:25 AM EDT) Glucose 104(H) 65 - 99 mg/dL 03/23/2025 9:13 AM EDT [facility] BUN 15.4 8.0 - 23.0 mg/dL 03/23/2025 9:13 AM EDT [facility] Creatinine 1.18 0.76 - 1.27 mg/dL 03/23/2025 9:13 AM EDT [facility] Sodium 142 136 - 145 mmol/L 03/23/2025 9:13 AM EDT [facility] Potassium 4.7 3.5 - 5.2 mmol/L 03/23/2025 9:13 AM EDT [facility] Chloride 108(H) 98 - 107 mmol/L 03/23/2025 9:13 AM EDT [facility] CO2 26.0 22.0 - 29.0 mmol/L 03/23/2025 9:13 AM EDT [facility] Calcium 8.7 8.6 - 10.5 mg/dL 03/23/2025 9:13 AM EDT [facility] BUN/Creatinine Ratio 13.1 7.0 - 25.0 03/23/2025 9:13 AM EDT [facility] Anion Gap 8.0 5.0 - 15.0 mmol/L 03/23/2025 9:13 AM EDT [facility] eGFR 60.5 >60.0 mL/min/1.7 3 03/23/2025 9:13 AM EDT [facility] Blood Line / Unknown 03/23/2025 8: 25 AM EDT 03/23/2025 8:35 AM EDT [facility] - 03/23/2025 9:13 AM EDT GFR [...] include race as a factor Lety Nath APRN LAB BLOOD ORDERABLES Final Re sult [facility]
[address] [place] [address], * CBC (No Diff) (03/23/2025 8:25 AM EDT) WBC 6.56 3.40 - 10.80 10*3/mm3 03/23/2025 8:40 AM EDT [facility] RBC 4.47 4.14 - 5.80 10*6/mm3 03/23/2025 8:40 AM EDT [facility] Hemoglobin 13.0 13.0 - 17.7 g/dL 03/23/2025 8:40 AM EDT [facility] Hematocrit 40.2 37.5 - 51.0 % 03/23/2025 8:40 AM EDT [facility] MCV 89.9 79.0 - 97.0 fL 03/23/2025 8:40 AM EDT [facility] MCH 29.1 26.6 - 33.0 pg 03/23/2025 8:40 AM EDT [facility] MCHC 32.3 31.5 - 35.7 g/dL 03/23/2025 8:40 AM EDT [facility] RDW 14.9 12.3 - 15.4 % 03/23/2025 8:40 AM EDT [facility] RDW-SD 48.6 37.0 - 54.0 fl 03/23/2025 8:40 AM EDT [facility] MPV 9.0 6.0 - 12.0 fL 03/23/2025 8:40 AM EDT [facility] Platelets 172 140 - 450 10*3/mm3 03/23/2025 8:40 AM EDT [facility] Blood Line / Unknown 03/23/2025 8: 25 AM EDT 03/23/2025 8:35 AM EDT Lety Nath APRN LAB BLOOD ORDERABLES Final Re sult [facility]
[address] [place] [address], documented in this encounter Visit Diagnoses Diagnosis [...] MAR Action Action Date Dose Rate Site bupivacaine (MARCAINE) 0.5 % injection Code / Trauma / Sedation Medication, Starting on Fri03/23/25 at 0959 Given 03/23/2025 9:59 AM EDT 5 mL Groin Right heparin (porcine) injection Code / Trauma / Sedation Medication, Starting on Fri03/23/25 at 1002 Given 03/23/2025 10:02 AM EDT 18,000 Units iopamidol (ISOVUE-370) 76 % injection Code / Trauma / Sedation Medication, Starting on Fri03/23/25 at 1011 Given 03/23/2025 10:23 AM EDT 10 mL lactated ringers infusion 9 mL/hr, Intravenous, Continuous, Starting on Gifty 03/24/25 at 0600, For 1 day, May switch to NS IV at KVO if renal / if indicated New Bag 03/23/2025 9:30 AM EDT lidocaine (XYLOCAINE) 1 % injection Code / Trauma / Sedation Medication, Starting on Fri03/23/25 at 0959 Given 03/23/2025 9:59 AM EDT 5 mL Groin Right lidocaine PF 1% (XYLOCAINE) injection 0.5 mL [...] at bedside for induction. (ARMIN) protamine injection Code / Trauma / Sedation Medication, Starting on Fri03/23/25 at 1022 Given 03/23/2025 10:22 AM EDT 100 mg sodium chloride 0.9 % flush 10 mL [...] 0940 (New Bag - Prov ider: Lindy Powers, SPECIAL TESTER) famotidine (PEPCID) injection 20 mg 20 mg, Intravenous, Once, On Fri03/23/25 at 0807, For 1 dose, Give IV push over 2 minutes. 0807 (Due) famotidine (PEPCID) tablet 20 mg (COMPLETED) 20 mg, Oral, Once, On Fri03/23/25 at 0807, For 1 dose 0839 (Given - Provid er: Farrah Brito, FATIMAH) sodium chloride 0.9 % flush 10 mL [...] 1002 1002 (Given - Provid er: Delvis Travis RN) iopamidol (ISOVUE-370) 76 % injection (CANCELED) Code / Trauma / Sedation Medication, Starting on Fri03/23/25 at 1011 1011 (Canceled Entry - Provider: Ynadel Torres MD)1023 (Given - Provider: Yandel Torres MD) lidocaine (XYLOCAINE) 1 % injection (CANCELED) Code / Trauma / Sedation Medication, Starting on Fri03/23/25 at 0959 0959 (Given - Provid er: Yandel Torres MD) lidocaine PF 1% (XYLOCAINE) injection 0.5 mL 0.5 mL, Injection, Once As Needed, IV Start, Starting on 8/20/25 at 0805, For 1 dose midazolam (VERSED) [...] 1022 1022 (Given - Provid er: Delvis Travis RN) sodium chloride 0.9 % flush 10 mL 10 mL, Intravenous, As Needed, Line Care, Starting on Fri03/23/25 at 0805 documented in this encounter Care Teams Oil Process Stillman Relationship Specialty Start Date End Date Sarahi Fitzgerald APRN [address] [place] [address] PCP - General Family Medicine 01/13/25 documented as of this encounter
--- OUTSIDE RECORDS SUMMARY | 2025-03-23 09:30 | XMS_ITS | Encounter Summary ---
Author Organization [facility] Address [address] [place] [address] Care Team Providers Care Video Library Assistant Name Role Phone Sarahi Fitzgerald NAIL SPECIALIST Primary Care Provider [phone] Reason for Visit * Auth/Cert Specialty Diagnoses / Procedures Referred By Anshul t Referred To Contact Diagnoses Paroxysmal atrial fibrillation Falls frequently Atrial Fibrillation Procedures CA PERQ CLSR TCAT L ATR APNDGE W/ENDOCARDIAL IMPLNT Atrial Appendage Occlusion, hold Eliquis the morning of surgery. Ronit Referral ID Status Reason Start Date Expiration Date Visits Re quested Visits Authorized 1 1 Encounter Details Date Type Department Care Team (Late st Contact Info) Description 03/23/2025 9:30 AM EDT Anesthesia Event [facility] [address] [place] [address] Delvis Sosa Jr., MD [address] [place] [id number] Anesthesia Record Procedure Summary Procedure Name Responsible Anesthesiologist Anesthesia Start Time Anesthesia Stop Time Atrial Appendage Occlusion, hold Eliquis the morning of surgery. Delvis Peres Jr., MD 03/23/25 0930 03/23/25 1031 Events Date Time Event Comment 03/23/2025 0901 AN Equip Check 0930 An Start The patient was reevaluated immediately before moderate or deep sedation use and before anesthesia induction. 0930 An Start Data 0939 An Induction 0940 An Intubation 1028 An Extubation 1031 an stop data 1031 Handoff to RN The following has been completed: 1. Identification of Patient, khan family member(s) or patient surrogate 2. Identification of the responsible Practitioner (primary service) 3. Discussion of the pertinent/attainable medical history 4. Discussion of the surgical/procedure course (procedure, reason for surgery, procedure performed) 5. Intraoperative anesthetic management and issue/concerns to include things such as airway, hemodynamics, narcotic, sedation level and paralytic management and intravenous fluids/blood products and urine output during the procedure 6. Expectations/Plans for the early post-procedure period to include things such as anticipated course (anticipatory guidance), complications, need for laboratory or ECG and medication administration 7. Opportunity for questions and acknowledgment of understanding of report from the receiving PACU/ICU team 1031 An Stop Meds Name Total ceFAZolin 2000 mg IVPB in 100 mL NS (MBP ) 2,000 mg propofol (DIPRIVAN) 10 mg/mL injection 1 20 mg rocuronium (ZEMURON) 50 mg/5 mL injectio n 100 mg lidocaine PF (XYLOCAINE) injection 1% 50 mg dexamethasone (DECADRON) 4 mg/mL injecti on 4 mg ondansetron (ZOFRAN) 2 mg/mL 4 mg sugammadex (BRIDION) 500 mg/5 mL injecti on 500 mg lactated ringers infusion 500 mL * Agents Name O2 N2O Air Sevoflurane Inspired Sevoflurane * Blood No blood administrations on file. Lines, Drains, and Airways Type Details Placement Removal Peripheral IV Placement Date: 03/05 ; Placement Time: 829; Catheter Size: 20 G; Orientation: Anterior, Distal, Right, Upper; Location: Arm; Patient Tolerance: Tolerated well; Removal Date: 03/23/25; Removal Time: 1310 03/23/25 0830 by Farrah Brito RN 03/23/25 1310 by Dottie Nieves RN Peripheral IV Placement Date: 03/05 ; Placement Time: 829; Catheter Size: 20 G; Orientation: Anterior, Distal, Left, Upper; Location: Arm; Patient Tolerance: Tolerated well; Removal Date: 03/23/25; Removal Time: 1310 03/23/25 0830 by Farrah Brito RN 03/23/25 1310 by Dottie Nieves, FATIMAH ETT Placement Date: 03/05 ; Placement Time: 0940 (created via procedure documentation); Blade Size: 3; Location: Oral; Removal Date: 03/23/25; Removal Time: 1028 03/23/25 0940 by Lindy Powers CRNA 03/23/25 1028 by Lindy Powers CRNA Venous Sheath 03/23/25; 1000; Yes; 8 Fr.; Right; Femoral; Dr. orta; Injectable; Chlorhexidine; Yes; Perclose; 03/23/25; 1022; Not present on admission, Per protocol/policy; No complications 03/23/25 1000 by Abdulaziz Garcia RN 03/23/25 1022 by Abdulaziz Garcia RN Venous Sheath 03/23/25; 1000; Yes; 9 Fr.; Right; Femoral; Dr. Orta; Injectable; Chlorhexidine; Yes; Perclose; 03/23/25; 1022; Not present on admission, Per protocol/policy; No complications 03/23/25 1000 by Abdulaziz Garcia RN 03/23/25 1022 by Abdulaziz Garcia RN documented in this encounter Social History Tobacco Use Types Packs/Day Years [...] or training? Not on file Preferred Language Singaporean 03/17/2025 Sex and Gender Information Value Date Recorded Sex Assigned at Not on file Legal Sex Male 11:42 AM EST Gender Identity Not on file Sexual Orientation Not on file documented as of this encounter Functional Status * Question Answer [...] 8:30 AM EDT Farrah Brito RN * [place] Suicide Severity Rating Scale (Screener/Recent Self-Report) Question Answer Date of Assessment Author 6. Suicidal Behavior (Lifetime) No 8:30 AM EDT Farrah Brito RN documented as of this encounter OR Notes * Anesthesia Postprocedure Evaluation - Lindy Powers CRNA - 03/23/2025 10:31 AM EDT Patient: Juan M Burgess Procedure Summary Date: 03/23/25 Room / Location: [facility] Anesthesia Start: 929 Anesthesia Stop: Procedure: Atrial Appendage Occlusion, hold Eliquis the morning of surgery. Watchman Diagnosis: Paroxysmal atrial fibrillation Falls frequently (Atrial Fibrillation) Providers: Yandel Orta MD Provider: Delvis Sosa Jr., MD Anesthesia Type: general ASA Status: 3 128/51 95% 80 98 F Anesthesia Type: general Vitals No vitals data found for the desired time range. Post Anesthesia Care and Evaluation Patient location during evaluation: PACU Patient participation: complete - patient participated Level of consciousness: awake and alert Pain management: adequate Airway patency: patent Anesthetic complications: No anesthetic complications PONV Status: none Cardiovascular status: hemodynamically stable and acceptable Respiratory status: nonlabored ventilation, acceptable and nasal cannula Hydration status: acceptable * Anesthesia Procedure Notes - Lindy Powers CRNA - 03/23/2025 9:50 AM EDT Associated Order(s): Airway Airway Reason: elective Date/Time: 03/23/2025 9:40 AM Airway not difficult General Information and Staff Patient location during procedure: OR Indications and Patient Condition Indications for airway management: airway protection Preoxygenated: yes MILS maintained throughout Mask difficulty assessment: 0 - not attempted Final Airway Details Final airway type: endotracheal airway Successful airway: ETT Cuffed: yes Successful intubation technique: video laryngoscopy and RSI Adjuncts used in placement: intubating stylet Endotracheal tube insertion site: oral Blade: Wright Blade size: 3 ETT size (mm): 7.0 Cormack-Lehane Classification: grade I - full view of glottis Placement verified by: chest auscultation and capnometry Measured from: lips ETT/EBT to lips (cm): 21 Number of attempts at approach: 1 Assessment: lips, teeth, and gum same as pre-op and atraumatic intubation * Anesthesia Preprocedure Evaluation - Delvis Sosa Jr., MD - 03/23/2025 8:38 AM EDT Anesthesia Evaluation Patient summary reviewed no history of anesthetic complications: NPO Solid Status: > 8 hours NPO Liquid Status: > 2 hours Airway Mallampati: II TM distance: >3 FB Neck ROM: full No difficulty expected Dental Comment: Implant denture Pulmonary (+) a smoker Former,shortness of breath (-) sleep apnea Cardiovascular ECG reviewed PT is on anticoagulation therapy (+) pacemaker pacemaker interrogated 1-3 months ago, hypertension, CAD (mild, non-flow limiting), dysrhythmias Atrial Fib, GUILLEN (-) angina, CHF, orthopnea ROS comment: Echo, 2023: grade 2 diastolic dysfunction, mild AI, mild MR, mild TR Neuro/Psych (-) seizures, CVA GI/Hepatic/Renal/Endo (+) obesity, GERD, renal disease- stones Musculoskeletal Abdominal Substance History MANAGER OF WAREHOUSE Other Anesthesia Plan ASA 3 general intravenous induction Anesthetic plan, risks, benefits, and alternatives have been provided, discussed and informed consent has been obtained with: patient. Pre-procedure education provided Plan discussed with AERODYNAMICS PROFESSOR. CODE STATUS: documented in this encounter Plan of Treatment Upcoming Encounters Date Type Department Care Team (Late st Contact Info) Description 06/02/2025 11:00 AM EDT Office Visit [facility] [address] [facility] [address] [place] [id number] Yandel Orta MD [address] [facility] [address] [place] [address] 06/23/2025 1:00 PM EST Appointment [facility] [address] [place] [address] 09/23/2025 10:00 AM EST Telemedicine [facility] [address] [facility] [address] [place] [id number] Nawaf Cormier APRN [address] [facility] [address] [place] [address] documented as of this encounter Procedures Procedure Name Priority Date/Time Associated Diagnosis Comments ANESTHESIA INTUBATION Routine 03/23/2025 9:50 AM EDT documented in this encounter Results * BH AN ETT AIRWAY (03/23/2025 9:50 AM EDT) Narrative Lindy Powers CRNA - 03/23/2025 9:50 AM EDT Lindy Powers CRNA 03/23/2025 9:50 AM Airway Reason: elective Date/Time: 03/23/2025 9:40 AM Airway not difficult General Information and Staff Patient location during procedure: OR Indications and Patient Condition Indications for airway management: airway protection Preoxygenated: yes MILS maintained throughout Mask difficulty assessment: 0 - not attempted Final Airway Details Final airway type: endotracheal airway Successful airway: ETT Cuffed: yes Successful intubation technique: video laryngoscopy and RSI Adjuncts used in placement: intubating stylet Endotracheal tube insertion site: oral Blade: Wright Blade size: 3 ETT size (mm): 7.0 Cormack-Lehane Classification: grade I - full view of glottis Placement verified by: chest auscultation and capnometry Measured from: lips ETT/EBT to lips (cm): 21 Number of attempts at approach: 1 Assessment: lips, teeth, and gum same as pre-op and atraumatic intubation us Delvis Sosa Jr., MD ANESTHESIA ORDERABLES F inal Result documented in this encounter Visit Diagnoses Not on filedocumented in this encounter Administered Medications Inactive Administered Medications - up to 3 most recent administrations Medication Order MAR Action Action Date Dose Rate Site ceFAZolin 2000 mg IVPB in 100 mL NS (MBP) 2,000 mg, Intravenous, Administer over 30 Minutes, Once, On Fri03/23/25 at 0820, For 1 dose, Caution: Look alike/sound alike drug alert, Indications: Surgical ProphylaxisIndications:Surgical Prophylaxis New Bag 03/23/2025 9:40 AM EDT 2,000 mg dexAMETHasone (DECADRON) injection Intravenous, As Needed, Starting on Fri03/23/25 at 0951 Given 03/23/2025 9:51 AM EDT 4 mg lactated ringers infusion 9 mL/hr, Intravenous, Continuous, Starting on Gifty 03/24/25 at 0600, For 1 day, May switch to NS IV at O if renal / if indicated New Bag 03/23/2025 9:30 AM EDT lidocaine PF 1% (XYLOCAINE) injection Intravenous, As Needed, Starting on Fri03/23/25 at 0939 Given 03/23/2025 9:39 AM EDT 50 mg ondansetron (ZOFRAN) injection Intravenous, As Needed, Starting on Fri03/23/25 at 1026 Given 03/23/2025 10:26 AM EDT 4 mg propofol (DIPRIVAN) injection Intravenous, As Needed, Starting on Fri03/23/25 at 0939 Given 03/23/2025 9:39 AM EDT 120 mg rocuronium (ZEMURON) injection Intravenous, As Needed, Starting on Fri03/23/25 at 0939 Given 03/23/2025 9:39 AM EDT 100 mg sugammadex (BRIDION) injection Intravenous, As Needed, Starting on Fri03/23/25 at 1027 Given 03/23/2025 10:27 AM EDT 500 mg documented in this encounter Care Teams Video Library Assistant Relationship Specialty Start Date End Date Sarahi Fitzgerald APRN [address] [place] [address] PCP - General Family Medicine 01/13/25 documented as of this encounter
--- NOTE | 2025-04-21 10:20 | PC.NURSE ---
states not to call a trauma alert.
[2025-04-21 10:22] VITALS: BMI 32.8
--- NOTE | 2025-04-21 10:25 | PC.NURSE ---
currently on phone with [facility] per Dr Gandhi for pt transfer for a complex right forearm laceration with tendon involvement
[2025-04-21 10:26] VITALS: BP 118/66; PULSE 86; RESP 20; TEMP 36.6; O2SAT 98; BMI 32.8
--- NOTE | 2025-04-21 10:26 | PC.NURSE ---
call made to EMS, i spoke with page, he will send a team up here for trauma transfer
--- NOTE | 2025-04-21 10:27 | PC.NURSE ---
Dr Gandhi is currently on phone with [facility]
--- OUTSIDE RECORDS SUMMARY | 2025-04-21 10:27 | XMS_ITS | Clinical Summary ---
Author Organization [facility] Address [address] [place] [address] Care Team Providers Care Miller First Name Role Phone LiaSarahi Teresita ZHANE Primary Care Provider +1- [phone] Allergies No known active allergies Medications amLODIPine (NORVASC) 10 MG tablet Take 1 tablet by mouth Daily. Active omeprazole (priLOSEC) 20 MG capsule Take 20 mg by mouth Daily. Active montelukast (SINGULAIR) 10 MG tablet Take 1 tablet by mouth Every Night. Active atorvastatin (LIPITOR) 40 MG tablet Take 1 tablet by mouth Daily. 5 Active eplerenone (INSPRA) 25 MG tablet Take 1 tablet by mouth Daily. Active escitalopram (LEXAPRO) 10 MG tablet Take 1 tablet by mouth Daily. 5 Active ergocalciferol (ERGOCALCIFEROL ) 1.25 MG (76561 UT) capsule Take 1 capsule by mouth 1 (One) Time Per Week. 5 Active aspirin 81 MG EC tablet Take 1 tablet by mouth Daily. Active furosemide (LASIX) 40 MG tablet Take 1 tablet by mouth Daily. Active clopidogrel (PLAVIX) 75 MG tablet Take 1 tablet by mouth Daily. 90 tablet 3 5 Active apixaban (ELIQUIS) 5 MG tablet tablet Take 1 tablet by mouth 2 (Two) Times a Day. 03/23/20 25 Discontinu ed(Stop Taking at Discharge) Active Problems Problem Noted Date Diagnosed Date AF (paroxysmal atrial fibrillation) 03/23/2025 Paroxysmal atrial fibrillation 01/17/2025 Falls frequently 01/17/2025 SSS (sick sinus syndrome) 01/12/2025 Presence of cardiac pacemaker 01/12/2025 Atrial flutter with controlled response 01/13/20 Essential hypertension 01/12/2025 Encounters Date Type Department Care Team Description 03/28/2025 Telephone [facility] [address] [facility] [address] [place] [phone]LEE - APPT 03/24/2025 Call Center Programs [facility]SE CALL [facility] [address] [facility] [place] [address] Elizabeth Combs RN 03/23/2025 9:30 AM EDT Anesthesia Event [facility] EP LAB [address] [place] [address] Delvis Sosa Jr., MD 03/23/2025 9:10 AM EDT - 03/23/2025 11:10 AM EDT Surgery [facility] EP LAB [address] [place] [address] Yandel Torres MD Atrial Appendage Occlusion, hold Eliquis the morning of surgery. Watchman [[id number] (CPT )] 03/23/2025 7:59 AM EDT - 03/23/2025 2:09 PM EDT Hospital Encounter [facility] CVOU [address] [place] [address] Yandel Torres MD AF (paroxysmal atrial fibrillation) (Primary Dx); Paroxysmal atrial fibrillation; Falls frequently; Preop examination Discharge Disposition: Home or Self Care 03/23/2025 Travel 03/17/2025 2:04 PM EDT - 03/17/2025 11:59 PM EDT Hospital Encounter [facility] CT AT [address] [place] [id number] Preop examination Discharge Disposition: Home or Self Care 03/17/2025 1:30 PM EDT Pre-Admission Testing [facility] PREADMISSION T [address] [place] [phone] Paroxysmal atrial fibrillation; Falls frequently 03/17/2025 Travel 03/14/2025 Telephone [facility] [address] [facility] [address] [place] [address] Kristi Bagley 03/02/2025 Prep for Surgery [facility] ORDERS ONLY [address] [place] [address] Lety Nath APRN Paroxysmal atrial fibrillation (Primary Dx); Falls frequently 02/24/2025 Telephone [facility] [address] [facility] [address] [place] [address] Kristi Bagley from Last 3 Months Social History Tobacco Use Types Packs/Day Years [...] or training? Not on file Preferred Language Turkmen 03/17/2025 Sex and Gender Information Value Date Recorded Sex Assigned at Not on file Legal Sex Male 11:42 AM EST Gender Identity Not on file Sexual Orientation Not on file Last Filed Vital Signs Vital Sign Reading [...] Mass Index 33.52 03/23/2025 8:14 AM EDT Plan of Treatment Upcoming Encounters Date Type Department Care Team (Late st Contact Info) Description 06/02/2025 11:00 AM EDT Office Visit [facility] [address] [facility] [address] [place] [address] Yandel Torres MD [address] [facility] [address] [place] [address] 06/23/2025 1:00 PM EST Appointment [facility] MRI [address] [place] [address] 09/23/2025 10:00 AM EST Telemedicine [facility] [address] [address] Nawaf Cormier APRN [address] [address] Health Maintenance Due Date Last Done Comments RSV Vaccine - Adults (1 - 1- dose 75+ series) 2014 ANNUAL WELLNESS VISIT 05/09/2024 05/09/2023, 018 INFLUENZA VACCINE 03/04/2025 05/17/2024, , 04/27/2022, Additional history exists COVID-19 Vaccine (4 - 2024-2 6 season) 2025 04/28/2021, 10/21/2020, 09/30/2020 TDAP/TD VACCINES (2 - Td or Tdap) 12/29/2028 019 Pneumococcal Vaccine 50+ Completed 023, 11/12/2021, 04/22/2017, Additional history exists ZOSTER VACCINE Completed 02/19/2023, 09/05, 07/22/2019, Additional history exists Medical Devices Implanted Type Area Fuel Attendant Device Identifier Shelf Expiration Date Model / Serial / Lot Kt Occl Atrial Appendage Amplatzer Amulet [id number] - [id number] Implanted:Qty : 1 on 03/23/2025 by Yandel Torres MD at [facility] Implant N/A: Heart [employer] 08/03/2029 [id number] / / [id number] Pacemaker Pacemaker Procedures Procedure Name Priority Date/Time Associated Diagnosis Comments EP STUDY Routine 03/23/2025 10:25 AM EDT Paroxysmal atrial fibrillation Falls frequently POCT ACTIVATED CLOTTING TIME Routine 03/23/2025 10:16 AM EDT ANESTHESIA INTUBATION Routine 03/23/2025 9:50 AM EDT INTRA-OP STRUCTURAL HEART DAVID (CARDIOLOGY READ) Routine 03/23/2025 9:25 AM EDT Paroxysmal atrial fibrillation Falls frequently Preop examination BASIC METABOLIC PANEL STAT 03/23/2025 8:25 AM EDT CBC (NO DIFF) STAT 03/23/2025 8:[address] ANGIOGRAM CHEST W WO CONTRAST Routine 03/17/2025 2:33 PM EDT Preop examination BASIC METABOLIC PANEL Routine 03/17/2025 1:31 PM EDT Paroxysmal atrial fibrillation Falls frequently CBC (NO DIFF) Routine 03/17/2025 1:31 PM EDT Paroxysmal atrial fibrillation Falls frequently from Last 3 Months Results * ATRIAL APPENDAGE OCCLUSION - CAR [...] EDT Procedure Narrative DATE OF PROCEDURE: 03/23/25 WINDOW FRAMER/COAT FITTER: Yandel Torres MD PROCEDURE(S) PERFORMED: 1. Insertion [...] sheaths and catheters were inserted: 1. An 8-Nigerian, intracardiac ultrasound catheter was advanced via a 9-Nigerian sheath in the right femoral vein to the high right atrium for visualization of left atrial structures. 2. A 22 mm left atrial appendage occlusive Amulet Amplatzer device was advanced via a 14 Nigerian sheath to the left atrial appendage for insertion. The patient arrived in the clinical electrophysiology laboratory in [facility] with a heart rate of 60 bpm. Intracardiac ultrasound demonstrated no left atrial appendage thrombus or significant left atrial smoke. Transseptal catheterization to the left atrium was then performed x 1 using a Diag transseptal needle and guided with the use of intracardiac ultrasound. Intravenous heparin was initiated during the study to maintain activated clotting times greater than 300 seconds. The 8 Nigerian Daig transseptal sheath was exchanged for a 14 Nigerian double curved Amulet sheath in the left atrium. A 6 Nigerian pigtail catheter was then advanced in the left atrial appendage. Venograms of the left atrial appendage was then performed in 2 views. The 14 Nigerian sheath was advanced over the pigtail in [...] Activated Clotting Time (03/23/2025 10:16 AM EDT) [facility] Signature Activated Clotting Time 348(H) 82 - 152 Seconds 03/31/2025 5:11 AM EDT [facility] Comment:Serial Number: [id number]: [id number] Blood 03/23/2025 10:1 6 AM EDT 03/31/2025 5:11 AM EDT us Yandel Torres MD POINT OF CARE TEST ORDERABLES Fi nal Result [facility]
[address] [place] [address], * AN ETT AIRWAY (03/23/2025 9:50 AM EDT) [...] gum same as pre-op and atraumatic intubation Delvis Sosa Jr., MD ANESTHESIA ORDERABLES F inal Result * Intra-Op Structural Heart DAVID (Cardiology Read) (03/23/2025 9:25 AM EDT) TR max wendy 248.0 cm/sec Ao pk wendy 199.0 cm/sec Ao max PG 15.8 mmHg Ao mean PG 10.0 mmHg Ao V2 VTI 49.7 cm TR max PG 24.6 mmHg CV VAS BP RIGHT ARM 153/84 mmHg [...] procedure. The procedure was performed in the color laboratory technician. Patient was noted to be in [...] MD CV ECHO ORDERABLES Final Result * CBC (No Diff) (03/23/2025 8:25 AM EDT) Only the most recent of2 resultswithin the time period is included. WBC 6.56 3.40 - 10.80 10*3/mm3 03/23/2025 8:40 AM EDT [facility] RBC 4.47 4.14 - 5.80 10*6/mm3 03/23/2025 8:40 AM EDT [facility] Hemoglobin 13.0 13.0 - 17.7 g/dL 03/23/2025 8:40 AM EDT [facility] Hematocrit 40.2 37.5 - 51.0 % 03/23/2025 8:40 AM EDT [facility] MCV 89.9 79.0 - 97.0 fL 03/23/2025 8:40 AM EDT [facility] MCH 29.1 26.6 - 33.0 pg 03/23/2025 8:40 AM EDT [facility] MCHC 32.3 31.5 - 35.7 g/dL 03/23/2025 8:40 AM EDT [facility] RDW 14.9 12.3 - 15.4 % 03/23/2025 8:40 AM EDT [facility] RDW-SD 48.6 37.0 - 54.0 fl 03/23/2025 8:40 AM EDT [facility] MPV 9.0 6.0 - 12.0 fL 03/23/2025 8:40 AM EDT [facility] Platelets 172 140 - 450 10*3/mm3 03/23/2025 8:40 AM EDT [facility] Blood Line / Unknown 03/23/2025 8: 25 AM EDT 03/23/2025 8:35 AM EDT Lety Nath APRN LAB BLOOD ORDERABLES Final Re sult [facility]
[address] [place] [address], * (ABNORMAL) Basic Metabolic Panel (03/23/2025 8:25 AM EDT) Only the most recent of2 resultswithin the time period is included. Glucose 104(H) 65 - 99 mg/dL 03/23/2025 9:13 AM EDT [facility] BUN 15.4 8.0 - 23.0 mg/dL 03/23/2025 9:13 AM EDT [facility] Creatinine 1.18 0.76 - 1.27 mg/dL 03/23/2025 9:13 AM EDT [facility] Sodium 142 136 - 145 mmol/L 03/23/2025 9:13 AM EDT [facility] Potassium 4.7 3.5 - 5.2 mmol/L 03/23/2025 9:13 AM EDT [facility] Chloride 108(H) 98 - 107 mmol/L 03/23/2025 9:13 AM EDT [facility] CO2 26.0 22.0 - 29.0 mmol/L 03/23/2025 9:13 AM EDT [facility] Calcium 8.7 8.6 - 10.5 mg/dL 03/23/2025 9:13 AM EDT [facility] BUN/Creatinine Ratio 13.1 7.0 - 25.0 03/23/2025 9:13 AM EDT [facility] Anion Gap 8.0 5.0 - 15.0 mmol/L 03/23/2025 9:13 AM EDT [facility] eGFR 60.5 >60.0 mL/min/1.7 3 03/23/2025 9:13 AM EDT [facility] Blood Line / Unknown 03/23/2025 8: 25 AM EDT 03/23/2025 8:35 AM EDT Narrative [facility] - 03/23/2025 9:13 AM EDT GFR [...] APRN LAB BLOOD ORDERABLES Final Re sult [facility]
[address] [place] [address], * CT Angiogram Chest (03/17/2025 2:33 PM [...] MD 03/17/2025 4:13 PM EDT Workstation ID: [id number] Narrative 03/17/2025 4:[address] ANGIOGRAM [...] MD 03/17/2025 4:13 PM EDT Workstation ID: [id number] Yandel Torres MD IM CT ORDERABLES Final Result from Last 3 Months Insurance MEDICARE ADVANTAGE PPO Advance Directives * CPR (Attempt to Resuscitate) (Latest Code Status on File) Date Activated Date Inactivated Comments 03/23/2025 10:42 AM 03/23/2025 4:10 PM Question Answer Comments Code Status (Patient has no pulse and is not breathing): CPR (Attempt to Resuscitate) Medical Interventions (Patie nt has pulse or is breathing): Full Support Care Teams Miller First Relationship Specialty Start Date End Date Sarahi Fitzgerald APRN [address] [place] [address] PCP - General Family Medicine 01/13/25
--- OUTSIDE RECORDS SUMMARY | 2025-04-21 10:27 | XMS_ITS | Encounter Summary ---
Author Organization [facility] Address [address] [place] [address] Care Team Providers Care Turbine Measurements Engineer Name Role Phone Sarahi Fitzgerald ZHANE Primary Care Provider +1- [phone] Reason for Visit * Reason Onset Date Comments DR.LEE Pradip CONWYA 03/28/2025 Encounter Details Date Type Department Care Team (Late st Contact Info) Description 03/28/2025 Telephone [facility] CARDIOLOG[facility] [address] [address] Yandel Torres MD [address] [place] [address] DR.LEE Pradip CONWAY Social History Tobacco Use Types Packs/Day Years [...] or training? Not on file Preferred Language Faroese 03/17/2025 Sex and Gender Information Value Date Recorded Sex Assigned at Not on file Legal Sex Male 11:42 AM EST Gender Identity Not on file Sexual Orientation Not on file documented as of this encounter Miscellaneous Notes * Telephone Encounter - Savannah Cabrera RegSched Rep - 03/28/2025 4:13 PM EDT Sw pt via phone he is aware of the appt date, time, location & who he will be seeing. Mailed out the appt reminder paper. * Telephone Encounter - Lesli Agarwal RegSched Rep - 03/28/2025 2:29 PM EDT Name: Juan M Burgess Relationship: Self Best Callback Number: [phone] Incoming call to the Hub, requesting to Reschedule their HFU appointment on 07.07.25. Per Hub workflow, further review is needed before the task can be completed. Result of Call: Please reach out to the patient to reschedule documented in this encounter Plan of Treatment Upcoming Encounters Date Type Department Care Team (Late st Contact Info) Description 06/02/2025 11:00 AM EDT Office Visit [facility] [address] [address] Yandel Torres MD [address] [facility] [address] [place] [address] 06/23/2025 1:00 PM EST Appointment [facility] MRI [address] [place] [address] 09/23/2025 10:00 AM EST Telemedicine [facility] [address] [facility] [address] [place] [address] Nawaf Cormier, ZHANE [address] [facility] [address] [place] [address] documented as of this encounter Visit Diagnoses Not on filedocumented in this encounter Care Teams Turbine Measurements Engineer Relationship Specialty Start Date End Date Sarahi Fitzgerald, JIG BORE OPERATOR [address] [place] [address] PCP - General Family Medicine 01/13/25 documented as of this encounter
--- OUTSIDE RECORDS SUMMARY | 2025-04-21 10:27 | XMS_ITS | Clinical Summary ---
Author Organization Healthcare Address [address] [id number] Care Team Providers Care Hobber Name Role Phone Sarahi Fitzgerald POCKET MAKER Primary Care Provider Allergies No known active allergies Medications albuterol 108 (90 Base) MCG/ACT inhaler Inhale 2 puffs every 6 (six) hours if needed. Active alfuzosin (Uroxatral) 10 MG 24 hr tablet Take 10 mg by mouth 1 (one) time each day. Do not crush, chew, or split. Active apixaban (Eliquis) 5 MG tablet Take 5 mg by mouth 2 (two) times a day. Active aspirin 81 MG EC tablet Take 81 mg by mouth 1 (one) time each day. Active atorvastatin (Lipitor) 80 MG tablet Take 80 mg by mouth 1 (one) time each day. Active ergocalciferol (Vitamin D-2) 1.25 MG (90632 UT) capsule Take 50,000 Units by mouth 1 (one) time per week. Active escitalopram (Lexapro) 10 MG tablet Take 10 mg by mouth 1 (one) time each day. Active finasteride (Proscar) 5 MG tablet Take 5 mg by mouth 1 (one) time each day. Do not crush, chew, or split. Active furosemide (Lasix) 40 MG tablet Take 40 mg by mouth 2 (two) times a day. Active montelukast (Singulair) 10 MG tablet Take 10 mg by mouth every night. Active omeprazole (PriLOSEC) [address] capsule Take 40 mg by mouth 1 (one) time each day. Do not crush or chew. Active spironolactone (Aldactone) 50 MG tablet Take 50 mg by mouth 1 (one) time each day. Active Active Problems Problem Noted Date Diagnosed Date Abnormal bruising 01/17/2022 Overview (01/17/2022): Added automatically from request for surgery [id number] CAD (coronary artery disease) 01/07/2022 Paroxysmal atrial fibrillation 01/07/2022 Atrial flutter 01/07/2022 HLD (hyperlipidemia) 01/07/2022 Essential hypertension, benign 01/07/2022 Encounters Date Type Department Care Team Description 01/19/2025 2:54 PM EDT - 01/19/2025 11:59 PM EDT Hospital Encounter [facility] [address] [place] [address] Other giant cell arteritis (CMS/HCC) Discharge Disposition: Home or Self Care 01/19/2025 Travel from Last 3 Months Family History Medical History Relation Name Comments Heart Problem Mother Relation Name Status Comments Mother Social History Tobacco Use Types Packs/Day Years Used Date Smoking Tobacco: Former Smokeless Tobacco: Former Alcohol Use Standard Drinks/Week Comments Not Currently 0 (1 standard drink = 0.6 oz pur e alcohol) Sex and Gender Information Value Date Recorded Sex Assigned at Not on file Legal Sex Male 7:31 PM EDT Gender Identity Not on file Sexual Orientation Not on file Last Filed Vital Signs Vital Sign Reading Time Taken Comments Blood Pressure 137/74 01/06/2025 11:01 AM EDT Pulse 81 01/06/2025 11:01 AM EDT Temperature 36.4 C (97.5 F) 01/06/2025 11:01 AM EDT Respiratory Rate 16 01/06/2025 11:01 AM EDT Oxygen Saturation 96% 01/06/2025 11:01 AM EDT Inhaled Oxygen Concentration - - Weight 95.3 kg (210 lb) 01/06/2025 11:01 AM EDT Height 170.2 cm (5' 7 ) 01/06/2025 11:01 AM EDT Body Mass Index 32.89 01/06/2025 11:01 AM EDT Plan of Treatment Health Maintenance Due Date Last Done Comments [facility]-Depression Screening 1939 [facility]-/Child/Adol SDOH Screenings 1940 [facility]-Obesity Intervention 1945 [facility]- SDOH Screenings 1957 [facility]-Adult SDOH Screenings 1957 [facility]-RSV Vaccine: 60+ Years or (1 - 1-dose 75+ series) 2014 [facility]-Medicare Annual Wellness (AWV) 05/09/2024 05/09/2023, 12/24/2017 [id number] Vaccine (4 - 2024- season) 2025 04/28/2021, 10/21/2020, 09/30/2020 [facility]-Influenza Vaccine (#1) 04/04/202505/17, 05/03/2023, 04/27/2022, Additional history exists [facility]-DTaP,Tdap,and Td Vaccines (2 - Td or Tdap) 12/29/2028 12/29/2018 [facility]-Hepatitis A Vaccines Aged Out 12/21/2018, 10/2017 No longer eligible based on patient's age to complete this topic [facility]-Pneumococcal Vaccine: 50+ Years Completed 09/30/2022, 04/22/2017, 09/19/2015 [facility]-Zoster Vaccines Completed 02/19/2023, 09/30/2022, 07/22/2019, Additional history exists HPV Vaccines Aged Out No longer eligi ble based on patient's age to complete this topic [facility]-HIB Vaccines Aged Out No longer e ligible based on patient's age to complete this topic [facility]-IPV Vaccines Aged Out No longer e ligible based on patient's age to complete this topic [facility]-Rotavirus Vaccines Aged Out No lo nger eligible based on patient's age to complete this topic Procedures Procedure Name Priority Date/Time Associated Diagnosis Comments CT HEAD W AND WO IV CONTRAST Routine 01/19/2025 3:27 PM EDT Other giant cell arteritis (CMS/HCC) from Last 3 Months Results * CT Head w and wo IV Contrast (01/19/2025 3:27 PM EDT) Anatomical Region Laterality Modality Head Computed Tomogra phy Impressions 01/21/2025 5:09 PM EDT 1. No acute intracranial abnormality. 2. Senescent changes, as described. 3. Apparent soft tissue nodule involving the left frontal sinus, anterior left- sided ethmoid sinuses and nasal cavity. Differential considerations include neoplastic etiologies. CRITICAL RESULT: No. COMMUNICATION: Per this written report. Drafted by Mago Curiel MD on 01/21/2025 4:59 PM Final report signed by Mago Curiel MD on 01/21/2025 5:09 PM Narrative 01/21/2025 5:09 PM EDT CLINICAL INDICATION: Left sided temporal pain, headache and jaw tenderness. TECHNIQUE: Spiral axial CT images of the head were obtained with and without contrast administration. 100 mL of Omnipaque 300 were administered. Total DLP (Dose-Length Product): 1563.97 mGy.cm. Please note: The reported value represents the total of one or more individual components during the CT acquisition on this date and at this time, and as such, the same value may appear in more than one CT report depending on the interpreting/reporting physicians. COMPARISON: None. FINDINGS: Diagnostic Quality: Adequate. The ventricles and sulci are enlarged consistent with brain parenchymal volume loss. There is atherosclerotic calcification of intracranial arteries. There is no acute large cortical infarct, intracranial hemorrhage or large mass. There are a mild amount of non-specific but likely ischemic white matter lesions. There is no abnormal enhancement. Soft Tissues: No significant soft tissue swelling is present. Patient has bilateral ocular lenticular implants. Skull: There are no calvarial destructive lesions or fractures. Temporomandibular joints are within normal limits in appearance. Sinuses and Mastoids: There is appears to be abnormal soft tissue present within the left-sided anterior ethmoid sinuses and left frontal sinus. This masslike process measures 2.4 x 1.5 x 3.2 cm. The mass appears to involve the adjacent nasal cavity. Paranasal sinuses are otherwise clear. The mastoid air cells are clear. Procedure Note Mago Curiel MD - 01/21/2025 CLINICAL INDICATION: Left sided temporal pain, headache and jaw tenderness. TECHNIQUE: Spiral axial CT images of the head were obtained with and without contrastadministration. 100 mL of Omnipaque 300 were administered. Total DLP (Dose-Length Product): 1563.97 mGy.cm. Please note: The reportedvalue represents the total of one or more individual components during theCT acquisition on this date and at this time, and as such, the same valuemay appear in more than one CT report depending on theinterpreting/reporting physicians. COMPARISON: None. FINDINGS: Diagnostic Quality: Adequate. The ventricles and sulci are enlarged consistent with brain parenchymalvolume loss. There is atherosclerotic calcification of intracranialarteries. There is no acute large cortical infarct, intracranial hemorrhage or largemass. There are a mild amount of non-specific but likely ischemic whitematter lesions. There is no abnormal enhancement. Soft Tissues: No significant soft tissue swelling is present. Patient hasbilateral ocular lenticular implants. Skull: There are no calvarial destructive lesions or fractures.Temporomandibular joints are within normal limits in appearance. Sinuses and Mastoids: There is appears to be abnormal soft tissue presentwithin the left-sided anterior ethmoid sinuses and left frontal sinus.This masslike process measures 2.4 x 1.5 x 3.2 cm. The mass appears toinvolve the adjacent nasal cavity. Paranasal sinuses are otherwise clear. The mastoid air cells are clear. IMPRESSION: 1.No acute intracranial abnormality. 2.Senescent changes, as described. 3.Apparent soft tissue nodule involving the left frontal sinus, anteriorleft- sided ethmoid sinuses and nasal cavity. Differential considerationsinclude neoplastic etiologies. CRITICAL RESULT: No. COMMUNICATION: Per this written report. Drafted by Mago Curiel MD on 01/21/2025 4:59 PM Final report signed by Mago Curiel MD on 01/21/2025 5:09 PM [facility] T Waters OD IMG CT PROCEDURES Final Result from Last 3 Months Insurance MEDICARE Care Teams Hobber Relationship Specialty Start Date End Date Sarahi Fitzgerald APRN [address] [place] [address] PCP - General 12/15/20
--- OUTSIDE RECORDS SUMMARY | 2025-04-21 10:28 | XMS_ITS | Clinical Summary ---
Author Organization [facility] Address [address], [address] [place] [address] Care Team Providers Care Procurement Manager Name Role Phone Sarahi Fitzgerald APRN Primary Care Provider [phone] Allergies No known active allergies Medications aspirin 81 MG tablet Take 1 tablet by mouth daily 30 tablet 11 9 Active hydrALAZINE (APRESOLINE) 50 MG tablet Take 1 tablet by mouth 3 times daily 3 Active alfuzosin (UROXATRAL) 10 MG extended release tablet Take 1 tablet by mouth once daily 90 tablet 3 3 Active metoprolol tartrate (LOPRESSOR) 25 MG tablet 3 Active finasteride (PROSCAR) 5 MG tablet Take 1 tablet by mouth once daily 90 tablet 3 3 Active betamethasone dipropionate 0.05 % cream Apply topically 2 times daily as needed Active nitroGLYCERIN (NITROSTAT) 0.4 MG SL tabletIndications :Essential hypertension Place 1 tablet under the tongue every 5 minutes as needed for Chest pain 25 tablet 3 3 Active ELIQUIS 5 MG TABS tabletIndications :Atrial fibrillation, unspecified type (HCC) Take 1 tablet by mouth 2 times daily 180 tablet 3 3 Active fluticasone (FLONASE) 50 MCG/ACT nasal sprayIndications: Seasonal allergies 2 sprays by Each Nostril route daily 48 g 3 4 Active omeprazole (PRILOSEC) 40 MG delayed release capsule Take 1 capsule by mouth every morning (before breakfast) 90 capsule 3 4 Active ketoconazole (NIZORAL) 2 % cream Apply topically daily. 60 g 5 4 Active losartan-hydroCHL OROthiazide (HYZAAR) 100-12.5 MG per tabletIndications :Essential hypertension Take 1 tablet by mouth daily 90 tablet 1 5 Active montelukast (SINGULAIR) 10 MG tabletIndications :Restrictive lung disease Take 1 tablet by mouth nightly 90 tablet 3 5 Active escitalopram (LEXAPRO) 10 MG tabletIndications :Recurrent major depressive disorder, in full remission Take 1 tablet by mouth once daily 90 tablet 3 5 Active spironolactone (ALDACTONE) 25 MG tabletIndications :Essential hypertension Take 1 tablet by mouth daily 90 tablet 3 5 Active atorvastatin (LIPITOR) 40 MG tablet Take 1 tablet by mouth daily 90 tablet 3 5 Active furosemide (LASIX) 40 MG tabletIndications :Essential hypertension Take 1 tablet by mouth daily Active eplerenone (INSPRA) 25 MG tabletIndications :Atrial fibrillation, unspecified type (HCC) Take 1 tablet by mouth daily 90 tablet 3 5 Active amLODIPine (NORVASC) 10 MG tabletIndications :Essential hypertension Take 1 tablet by mouth once daily 90 tablet 3 5 Active vitamin D (ERGOCALCIFEROL) 1.25 MG (83239 UT) CAPS capsuleIndication s:Vitamin D deficiency Take 1 capsule by mouth once a week 12 capsule 3 5 Active Active Problems Problem Noted Date Diagnosed Date Primary osteoarthritis of both hands 06/02/2022 Hyperlipidemia 06/02/2022 Atrial fibrillation 12/06/2020 Hypogonadism in male 02/29/2016 Essential hypertension 01/04/2016 Gastroesophageal reflux disease without esophagi tis 01/04/2016 Syncope 01/04/2016 Fatigue 01/04/2016 Vitamin D deficiency 01/04/2016 SOB (shortness of breath) on exertion 01/04/2016 Encounters Date Type Department Care Team Description 04/12/2025 Abstract [facility] [address] [place] [address] Sarahi Fitzgerald, BOILER ROOM OPERATOR 03/31/2025 Abstract [facility] [address] [place] [address] Sarahi Fitzgerald, BOILER ROOM OPERATOR 03/31/2025 Abstract [facility] [address] [place] [address] Sarahi Fitzgerald, BOILER ROOM OPERATOR 03/24/2025 Abstract [facility] [address] [place] [address] Sarahi Fitzgerald, BOILER ROOM OPERATOR 03/24/2025 Abstract [facility] [address] [place] [address] Sarahi Fitzgerald, BOILER ROOM OPERATOR 03/14/2025 Orders Only [facility] [address] [place] [address] Sarahi Fitzgerald, BOILER ROOM OPERATOR Atrial fibrillation, unspecified type (HCC); Essential hypertension; Vitamin D deficiency 03/10/2025 [facility] [address] [place] [address] Sarahi Fitzgerald, BOILER ROOM OPERATOR 03/02/2025 Abstract [facility] [address] [place] [address] Sarahi Fitzgerald, BOILER ROOM OPERATOR 02/16/2025 Abstract [facility] [address] [place] [address] Sarahi Fitzgerald, BOILER ROOM OPERATOR 02/16/2025 Orders Only [facility] [address] [place] [address] Provider, MD Dorota 02/16/2025 Abstract [facility] [address] [place] [address] Sarahi Fitzgerald, BOILER ROOM OPERATOR 02/15/2025 11:00 AM EDT Office Visit [facility] [address] [place] [address] Sarahi Fitzgerald APRN Lesion or mass of paranasal sinuses (Primary Dx); COPD exacerbation (HCC) 02/15/[address] [address] Sarahi Fitzgerald APRN 01/24/2025 11:00 AM EDT Office Visit [address] [address] Sarahi Fitzgerald APRN Essential hypertension (Primary Dx); Mixed hyperlipidemia; Acute bronchitis, unspecified organism 01/20/2025 Orders Only [address] [address] Sarahi Fitzgerald APRN from Last 3 Months Immunizations Immunization Administration Dates Next Due COVID-19, Inactive, MODERNA BLUE border, Primary or Immunocompromised, (age 12y+) 09/30/2020 COVID-19, Inactive, [employer] URPLE top, DILUTE for use, (age 12 y+) 10/21/2020,09/30/2020 Hep A, HAVRIX, VAQTA, (age 1 9y+), IM, 1mL 12/21/2018,06/06/2018 Hepatitis A 12/21/2018 Hepatitis A Adult (Vaqta) 12/21/2018 Influenza Vaccine, unspecifi ed formulation 04/08/2017 Influenza, FLUARIX, FLULAVAL , FLUZONE (age 6 mo+) and AFLURIA, (age 3 y+), Quadv PF, 0.5mL 04/28/2021 Influenza, FLUZONE High Dose (age 65 y+), IM, Quadv, 0.7mL 05/17/2024,04/27/2022 Influenza, Quadv, 6 mo and o lder, IM (Fluzone, Flulaval) 07/30/2017 Pneumococcal, PCV-13, PREVNA R 13, (age 6w+), IM, 0.5mL 04/22/2017 TDaP, ADACEL (age 10y-64y), BOOSTRIX (age 10y+), IM, 0.5mL 12/29/2018 Zoster Recombinant (Shingrix) 02/19/2023 ,07/22/2019,04/21/2019,2018 Social History Tobacco Use Types Packs/Day Years Used Date Smoking Tobacco: Former Cigarettes 1 6 1 960 - 1965 Smokeless Tobacco: Former Chew Tobacco Cessation:Counseling Given: No Alcohol Use Standard Drinks/Week Comments No 0 (1 standard drink = 0.6 oz pur e alcohol) [facility] Utilities Answer Date Recorded In the past 12 months has th e electric, gas, oil, or water company threatened to shut off services in your home? Patient declined 01/24/2025 AUDIT-C Answer Date Recorded Q1: How often do you have a drink containing alcohol? Never 05/09/2023 Q2: How many drinks containi ng alcohol do you have on a typical day when you are drinking? Patient does not drink Q3: How often do you have si x or more drinks on one occasion? Never 05/09/2023 Overall Financial Resource Strain (CARDIA) Answe r Date Recorded How hard is it for you to pa y for the very basics like food, housing, medical care, and heating? Not hard at all 11/13/2022 PHQ-2 Answer Date Recorded PHQ-9 Total Score 1 01/24/2025 Exercise Vital Sign Answer Date Recorde d On average, how many days pe r week do you engage in moderate to strenuous exercise (like a brisk walk)? 2 days 05/09/2023 On average, how many minutes do you engage in exercise at this level? 20 min 05/09/2023 Hunger Vital Sign Answer Date Recorded Within the past 12 months, y ou worried that your food would run out before you got the money to buy more. Never true 01/25/20 25 Within the past 12 months, t he food you bought just didn't last and you didn't have money to get more. Never true 01/24/2025 PRAPARE - Transportation Answer Date Re corded In the past 12 months, has l ack of transportation kept you from medical appointments or from getting medications? No 01/03 In the past 12 months, has l ack of transportation kept you from meetings, work, or from getting things needed for daily living? No 01/24/2025 Housing Stability Vital Sign Answer Michael e Recorded Unable to Pay for Housing in the Last Year Not o n file 11/13/2022 Number of Places Lived in the Last Year Not on f ile 11/13/2022 In the last 12 months, was t here a time when you did not have a steady place to sleep or slept in a mcfp (including now)? No 11/13/2022 Housing Stability Vital Sign Answer Michael e Recorded In the last 12 months, was t here a time when you were not able to pay the mortgage or rent on time? No 01/24/2025 In the past 12 months, how m any times have you moved where you were living? 0 01/24/2025 At any time in the past 12 m [facility], were you homeless or living in a mcfp (including now)? No 01/24/2025 Food Insecurity Answer Date Recorded Within the past 12 months, y ou worried that your food would run out before you got the money to buy more. 1 01/24/2025 Within the past 12 months, t he food you bought just didn't last and you didn't have money to get more. 1 01/24/2025 Sex and Gender Information Value Date Recorded Sex Assigned at Not on file Legal Sex Male 10:21 AM EDT Gender Identity Not on file Sexual Orientation Not on file Last Filed Vital Signs Vital Sign Reading Time Taken Comments Blood Pressure 134/78 02/15/2025 11:25 AM EDT Pulse 88 02/15/2025 11:25 AM EDT Temperature 36.6 C (97.8 F) 02/15/2025 11:25 AM EDT Respiratory Rate 18 02/15/2025 11:25 AM EDT Oxygen Saturation 97% 02/15/2025 11:25 AM EDT Inhaled Oxygen Concentration - - Weight 97.1 kg (214 lb) 02/15/2025 11:25 AM EDT Height 172.7 cm (5' 8 ) 02/15/2025 11:25 AM EDT Body Mass Index 32.54 02/15/2025 11:25 AM EDT Plan of Treatment Health Maintenance Due Date Last Done Comments Lipids 05/06/2024 05/06/2023, 04/04, 12/06/2020, Additional history exists Annual Wellness Visit (Medicare Advantage) 08/04/2024 05/09/2023, 12/24/2017 Flu vaccine (#1) 03/04/2025 05/17/2024, , 04/27/2022, Additional history exists COVID-19 Vaccine ( season) 2025 04/28/2021, 10/21/2020, 09/30/2020, Additional history exists Depression Monitoring 01/24/2026 01/24/2025, 025 DTaP/Tdap/Td vaccine (2 - Td or Tdap) 12/29/2028 12/29/2018 Hepatitis A vaccine Aged Out 12/21/2018, 12/21/2018, 12/21/2018, Additional history exists No longer eligible based on patient's age to complete this topic Pneumococcal 50+ years Vaccine Completed 09/30/2022, 11/12/2021, 04/22/2017, Additional history exists Shingles vaccine Completed 02/19/2023, , 07/22/2019, Additional history exists Respiratory Syncytial Virus (RSV) or age 60 yrs+ Completed 07/05/2023 Depression Screen Discontinued 01/24/2025, 01/24/2025 Hepatitis B vaccine Aged Out No longe r eligible based on patient's age to complete this topic Hib vaccine Aged Out No longer eligi ble based on patient's age to complete this topic Meningococcal (ACWY) vaccine Aged Out No longer eligible based on patient's age to complete this topic Meningococcal B vaccine Aged Out No l onger eligible based on patient's age to complete this topic Polio vaccine Aged Out No longer elig ible based on patient's age to complete this topic Goals Goal Patient Goal Type Associated Problems Recent Progress Patient-Stated? Author Blood Pressure < 140/90 Blood Pressure 134/78( 025 11:25 AM EDT) No Heidy Kimball MA Procedures Procedure Name Priority Date/Time Associated Diagnosis Comments CT HEAD (52292) Routine 01/19/2025 9:02 AM EDT LIPID PANEL Routine 05/06/2023 12:55 PM EDT Hyperlipidemia, unspecified hyperlipidemia type from Last 3 Months or Most Recently Relevant to Health Maintenance Results * Ct head (37512) (01/19/2025 9:02 AM EDT) Anatomical Region Laterality Modality Other us Historical Provider CV NEUROVASCULAR ORDERABL ES Final Result * Lipid Panel (05/06/2023 12:55 PM EDT) Cholesterol, Total 116 0 - 200 mg/dL 05/06/2023 2:52 PM EDT [facility] Triglycerides 164 0 - 249 mg/dL 05/06/20 23 2:52 PM EDT [facility] HDL 44 40 - 60 mg/dL 05/06/2023 2:52 PM EDT [facility] Comment: An HDL cholesterol less than 40 mg/dL is low and constitutes a coronary heart disease risk factor. An HDL cholesterol greater than 60 mg/dL is a negative risk factor for coronary heart disease. LDL Calculated 39 <100 mg/dL 05/06/2023 2:52 PM EDT [facility] VLDL Cholesterol Calculated 33 Not Established mg/dL 05/06/2023 2:52 PM EDT [facility] Blood BLOOD SPECIMEN / Unknown 05/06/2023 12:55 PM EDT 05/06/2023 2:49 PM EDT us Sarahi Fitzgerald APRN CHEMISTRY ORDERABLES Final Res ult [facility] [address] [place] [address], [facility] [phone] from Last 3 Months or Most Recently Relevant to Health Maintenance Insurance [facility] MEDICARE Advance Directives Healthcare Agents on File Name Relationship Healthcare Agent Relationshi p Communication Erika Burgess Spouse Primary Decision Maker Care Teams Procurement Manager Relationship Specialty Start Date End Date Sarahi Fitzgerald APRN [address] [place] [address] PCP - General Family Nurse Practitioner 01/04/16
--- OUTSIDE RECORDS SUMMARY | 2025-04-21 10:28 | XMS_ITS | Encounter Summary ---
Author Organization [facility] Address [address], [address] [place] [address] Care Team Providers Care Loading Unit Operator Name Role Phone Sarahi Fitzgerald APRN Primary Care Provider Encounter Details Date Type Department Care Team (Late st Contact Info) Description 02/15/2025 [facility] [address] [place] [address] Sarahi Fitzgerald APRN [address] [place] [address] Social History Tobacco Use Types Packs/Day Years Used Date Smoking Tobacco: Former Cigarettes 1 6 1 960 - 9027 Smokeless Tobacco: Former Chew Alcohol Use Standard Drinks/Week Comments No 0 (1 standard drink = 0.6 oz pur e alcohol) [facility] Utilities Answer Date Recorded In the past 12 months has [employer], gas, oil, or water company threatened to [...] place to sleep or slept in a prison (including now)? No 11/13/2022 Housing Stability Vital Sign Answer Michael e Recorded In the last 12 months, was t here a time when you were not able to pay the mortgage or rent on time? No 01/24/2025 In the past 12 months, how m any times have you moved where you were living? 0 01/24/2025 At any time in the past 12 m [facility], were you homeless or living in a prison (including now)? No 01/24/2025 Food Insecurity Answer [...] on file documented as of this encounter Plan of Treatment Not on file documented as of this encounter Goals Goal Patient Goal Type Associated Problems Recent Progress Patient-Stated? Author Blood Pressure < 140/90 Blood Pressure 134/78( 025 11:25 AM EDT) No Heidy Kimball MA documented as of this encounter Visit Diagnoses Not on filedocumented in this encounter Additional Health Concerns Assessment Noted Time A fall risk assessment has been complete d for the patient 01/24/2025 11:47 AM EDT documented as of this encounter Care Teams Loading Unit Operator Relationship Specialty Start Date End Date Sarahi Fitzgerald APRN [address] [place] [address] PCP - General Family Nurse Practitioner 01/04/16 documented as of this encounter
--- OUTSIDE RECORDS SUMMARY | 2025-04-21 10:28 | XMS_ITS | Encounter Summary ---
Author Organization [facility] Address [address] [place] [address] Care Team Providers Care Loss Prevention Coordinator Name Role Phone Sarahi Fitzgerald ZHANE Primary Care Provider [phone] Reason for Visit * Reason Onset Date Comments PCI/Device 03/24/2025 LAAO Device Impl ant Encounter Details Date Type Department Care Team (Late st Contact Info) Description 03/24/2025 Call Center Programs [facility] NURSE CALL [facility] [address] [place] [phone] Elizabeth Combs, RN Social History Tobacco Use Types Packs/Day Years [...] or training? Not on file Preferred Language Lao 03/17/2025 Sex and Gender Information Value Date Recorded Sex Assigned at Not on file Legal Sex Male 11:42 AM EST Gender Identity Not on file Sexual Orientation Not on file documented as of this encounter Miscellaneous Notes * Outreach Note - Elizabeth Combs RN - 03/24/2025 8:45 AM EDT Images from the original note were not included. PCI/Device Survey Flowsheet Row Responses Facility patient discharged from? [facility] Procedure date 03/23/25 Procedure (if device, specify in description) Device Device Description LAAO Device Implant Performing MD Other (annotate) [Dr. Yandel Torres] Attempt successful? Yes Call start time 0848 Call end time 0851 Has the patient had any of the following symptoms since discharge? -- [no symptoms noted] Nursing interventions Patient education provided Is the patient taking prescribed medications: Plavix Nursing intervention Nurse provided patient education, Reminded to continue to take prescribed medications Does the patient have any of the following symptoms related to the cath/surgical site? -- [no symptoms noted] Nursing intervention Patient education provided Does the patient have an appointment scheduled with the pilot submersible? Yes Appointment comments Hospital follow up appt with pilot submersible Dr. Torres on 07/07 If the patient is a current smoker, are they able to teach back resources for cessation? Not a smoker Did the patient feel prepared to go home on the same day as the procedure? Yes Is the patient satisfied with the same day discharge process? Yes PCI/Device call completed Yes Wrap up additional comments Doing great, denies any questions or concerns. Elizabeth Kline - Registered Nurse documented in this encounter Plan of Treatment Upcoming Encounters Date Type Department Care Team (Late st Contact Info) Description 06/02/2025 11:[address] EDT Office [address] [facility] [address] [facility] [address] [address] [place] [id number] Yandel Torres MD [address] [facility] [address] [place] [address] 06/23/2025 1:00 PM EST Appointment [facility] MRI [address] [place] [address] 09/23/2025 10:[address] [facility] [address] [facility] [address] [place] [phone] Nawaf Cormier, ZHANE [address] [facility] [address] [place] [address] documented as of this encounter Visit Diagnoses Not on filedocumented in this encounter Care Teams Loss Prevention Coordinator Relationship Specialty Start Date End Date Sarahi Fitzgerald, SHOP MANAGER [address] [place] [address] PCP - General Family Medicine 01/13/25 documented as of this encounter
--- OUTSIDE RECORDS SUMMARY | 2025-04-21 10:28 | XMS_ITS | Encounter Summary ---
Author Organization [facility] Address [address] [facility] [address], [address] [place] [address] Care Team Providers Care Flexible Shaft Winder Name Role Phone Sarahi Fitzgerald APRN Primary Care Provider [phone] Encounter Details Date Type Department Care Team (Late st Contact Info) Description 02/16/2025 [facility] [address] [place] [address] Sarahi Fitzgerald APRN [address] [place] [address] Social History Tobacco Use Types Packs/Day Years Used Date Smoking Tobacco: Former Cigarettes 1 6 1 960 - 7653 Smokeless Tobacco: Former Chew Alcohol Use Standard Drinks/Week Comments No 0 (1 standard drink = 0.6 oz pur e alcohol) [facility] Utilities Answer Date Recorded In the past 12 months has [employer], gas, oil, or water company threatened to [...] place to sleep or slept in a chcf (including now)? No 11/13/2022 Housing Stability Vital Sign Answer Michael e Recorded In the last 12 months, was t here a time when you were not able to pay the mortgage or rent on time? No 01/24/2025 In the past 12 months, how m any times have you moved where you were living? 0 01/24/2025 At any time in the past 12 m [facility], were you homeless or living in a chcf (including now)? No 01/24/2025 Food Insecurity Answer [...] documented as of this encounter Care Teams Flexible Shaft Winder Relationship Specialty Start Date End Date Sarahi Fitzgerald APRN [address] [place] [address] PCP - General Family Nurse Practitioner 01/04/16 documented as of this encounter
--- OUTSIDE RECORDS SUMMARY | 2025-04-21 10:28 | XMS_ITS | Encounter Summary ---
Author Organization [facility] Address [address] [facility] [place] [address] Care Team Providers Care Digital Media Analyst Name Role Phone Sarahi Fitzgerald APRN Primary Care Provider [phone] Encounter Details Date Type Department Care Team (Late st Contact Info) Description 03/31/[address] [facility] [address] [place] [address] Sarahi Fitzgerald APRN [address] [place] [address] Social History Tobacco Use Types Packs/Day Years Used Date Smoking Tobacco: Former Cigarettes 1 6 1 960 - 1349 Smokeless Tobacco: Former Chew Alcohol Use Standard Drinks/Week Comments No 0 (1 standard drink = 0.6 oz pur e alcohol) [facility] Utilities Answer Date Recorded In the past 12 months has [employer], gas, oil, or water company threatened to [...] place to sleep or slept in a mcc (including now)? No 11/13/2022 Housing Stability Vital Sign Answer Michael e Recorded In the last 12 months, was t here a time when you were not able to pay the mortgage or rent on time? No 01/24/2025 In the past 12 months, how m any times have you moved where you were living? 0 01/24/2025 At any time in the past 12 m [facility], were you homeless or living in a mcc (including now)? No 01/24/2025 Food Insecurity Answer [...] documented as of this encounter Care Teams Digital Media Analyst Relationship Specialty Start Date End Date Sarahi Fitzgerald APRN [address] [place] [address] PCP - General Family Nurse Practitioner 01/04/16 documented as of this encounter
--- OUTSIDE RECORDS SUMMARY | 2025-04-21 10:28 | XMS_ITS | Encounter Summary ---
Author Organization [facility] Address [address], [address] [place] [address] Care Team Providers Care Benefits Analyst Name Role Phone Sarahi Fitzgerald APRN Primary Care Provider [phone] Encounter Details Date Type Department Care Team (Late st Contact Info) Description 03/10/2025 [facility] [address] [place] [address] Sarahi Fitzgerald APRN [address] [place] [address] Social History Tobacco Use Types Packs/Day Years Used Date Smoking Tobacco: Former Cigarettes 1 6 1 960 - 7053 Smokeless Tobacco: Former Chew Alcohol Use Standard Drinks/Week Comments No 0 (1 standard drink = 0.6 oz pur e alcohol) [facility] Utilities Answer Date Recorded In the past 12 months has [employer] gas, oil, or water company threatened to [...] place to sleep or slept in a penitentiary (including now)? No 11/13/2022 Housing Stability Vital Sign Answer Michael e Recorded In the last 12 months, was t here a time when you were not able to pay the mortgage or rent on time? No 01/24/2025 In the past 12 months, how m any times have you moved where you were living? 0 01/24/2025 At any time in the past 12 m [facility], were you homeless or living in a penitentiary (including now)? No 01/24/2025 Food Insecurity Answer [...] documented as of this encounter Care Teams Benefits Analyst Relationship Specialty Start Date End Date Sarahi Fitzgerald APRN [address] [place] [address] PCP - General Family Nurse Practitioner 01/04/16 documented as of this encounter
--- OUTSIDE RECORDS SUMMARY | 2025-04-21 10:28 | XMS_ITS | Encounter Summary ---
Author Organization [facility] Address [address] [facility], [address] [place] [address] Care Team Providers Care Family Welfare Social Work Professor Name Role Phone Sarahi Fitzgerald APRN Primary Care Provider [phone] Encounter Details Date Type Department Care Team (Late st Contact Info) Description 03/31/2025 Abstract [facility] [address] [place] [address] Sarahi Fitzgerald APRN [address] [place] [address] Social History Tobacco Use Types Packs/Day Years Used Date Smoking Tobacco: Former Cigarettes 1 6 1 960 - 2040 Smokeless Tobacco: Former Chew Alcohol Use Standard Drinks/Week Comments No 0 (1 standard drink = 0.6 oz pur e alcohol) [facility] Utilities Answer Date Recorded In the past 12 months has [employer], gas, oil, or water company threatened to [...] place to sleep or slept in a fpc (including now)? No 11/13/2022 Housing Stability Vital Sign Answer Michael e Recorded In the last 12 months, was t here a time when you were not able to pay the mortgage or rent on time? No 01/24/2025 In the past 12 months, how m any times have you moved where you were living? 0 01/24/2025 At any time in the past 12 m [facility], were you homeless or living in a fpc (including now)? No 01/24/2025 Food Insecurity Answer [...] documented as of this encounter Care Teams Family Welfare Social Work Professor Relationship Specialty Start Date End Date Sarahi Fitzgerald APRN [address] [place] [address] PCP - General Family Nurse Practitioner 01/04/16 documented as of this encounter
--- OUTSIDE RECORDS SUMMARY | 2025-04-21 10:28 | XMS_ITS | Encounter Summary ---
Author Organization [facility] Address [address] [place] [address] Care Team Providers Care Conveyor Belt Installer Name Role Phone FitzgeraldSarahi siegel Teresita ZHANE Primary Care Provider [phone] Encounter Details Date Type Department Care Team (Late st Contact Info) Description 02/24/2025 Telephone [facility] CARDIOLOGY [address] [place] [address] [address] [place] [address] Kristi Bagley Social History Tobacco Use Types Packs/Day Years Used Date Smoking Tobacco: Former Cigarettes 3 14 1 950 - 1964 Alcohol Use Standard Drinks/Week Comments Never 0 (1 standard drink = 0.6 oz pur e alcohol) Sex and Gender Information Value Date Recorded Sex Assigned at Not on file Legal Sex Male 11:42 AM EST Gender Identity Not on file Sexual Orientation Not on file documented as of this encounter Miscellaneous Notes * Telephone Encounter - Kristi Bagley - 02/24/2025 10:19 AM EDTSumdandrey: Elizabeth research study Patient returned call after VM left yesterday for study interest. Research material mailed today. documented in this encounter Plan of Treatment Upcoming Encounters Date Type Department Care Team (Late st Contact Info) Description 06/02/2025 11:00 AM EDT Office Visit [facility] C[facility] [address] [facility] [address] [place] [address] Yandel Torres MD [address] [facility] [address] [place] [address] 06/23/2025 1:00 PM EST Appointment [facility] MRI [address] [place] [address] 09/23/2025 10:00 AM EST Telemedicine [facility] [address] [facility] [address] [place] [address] Nawaf Cormier APRN [address] [facility] [address] [place] [address] documented as of this encounter Visit Diagnoses Not on filedocumented in this encounter Care Teams Conveyor Belt Installer Relationship Specialty Start Date End Date Sarahi Fitzgerald, EMPLOYMENT LAW SPECIALIST [address] [place] [address] PCP - General Family Medicine 01/13/25 documented as of this encounter
--- OUTSIDE RECORDS SUMMARY | 2025-04-21 10:28 | XMS_ITS | Encounter Summary ---
Author Organization [facility] Address [address] [place] [address] Care Team Providers Care Bindery Supervisor Name Role Phone FitzgeraldSarahi siegel Teresita ZHANE Primary Care Provider [phone] Encounter Details Date Type Department Care Team (Late Contact Info) Description 03/14/2025 Telephone [facility] C[facility] [address] [facility] [address] [place] [address] Kristi Bagley Social History Tobacco Use Types [...] * Telephone Encounter - Kristi Bagley - 03/14/2025 2:18 PM EDTSummary: Elizabeth study Patient contacted for study interest again today. Since he treviño in [place] from June throughNovember, we will screen-fail him. documented in this encounter Plan of Treatment Upcoming Encounters Date Type Department Care Team (Late st Contact Info) Description 06/02/2025 11:00 AM EDT Office Visit [facility] C[facility] [address] [facility] [address] [place] [address] Yandel Torres MD [address] [facility] [address] [place] [address] 06/23/2025 1:00 PM EST Appointment [facility] MRI [address] [place] [address] 09/23/2025 10:00 AM EST Telemedicine [facility] [address] [facility] [address] [place] [address] Nawaf Cormier, ZHANE [address] [facility] [address] [place] [address] documented as of this encounter Visit Diagnoses Not on filedocumented in this encounter Care Teams Bindery Supervisor Relationship Specialty Start Date End Date Sarahi Fitzgerald, COMMISSION CLERK [address] [place] [address] PCP - General Family Medicine 01/13/25 documented as of this encounter
--- OUTSIDE RECORDS SUMMARY | 2025-04-21 10:28 | XMS_ITS | Encounter Summary ---
Author Organization [facility] Address [address] [place] [address] Care Team Providers Care Distribution Coordinator Name Role Phone Sarahi Fitzgerald ZHANE Primary Care Provider [phone] Encounter Details Date Type Department Care Team (Latest Contact Info) Description 03/17/2025 Travel Social History Tobacco Use Types Packs/Day Years [...] or training? Not on file Preferred Language Khmer 03/17/2025 Sex and Gender Information Value Date Recorded Sex Assigned at Not on file Legal Sex Male 11:42 AM EST Gender Identity Not on file Sexual Orientation Not on file documented as of this encounter Plan of Treatment Upcoming Encounters Date Type Department Care Team ( st Contact Info) Description 06/02/2025 11:00 AM EDT Office Visit [facility] CARDIOLOGY [address] [place] [address] [address] [place] [address] Yandel Torres MD [address] [facility] [address] [place] [address] 06/23/2025 1:00 PM EST Appointment [facility] MRI [address] [place] [address] 09/23/2025 10:00 AM EST Telemedicine [facility] CARDIOLOGY [address] [facility] [address] [place] [address] Nawaf Cormier, MEDIA ANALYTICS MANAGER [address] [facility] [address] [place] [address] documented as of this encounter Visit Diagnoses Not on filedocumented in this encounter Care Teams Distribution Coordinator Relationship Specialty Start Date End Date Sarahi Fitzgerald, ZHANE [address] [place] [address] PCP - General Family Medicine 01/13/25 documented as of this encounter
--- OUTSIDE RECORDS SUMMARY | 2025-04-21 10:28 | XMS_ITS | Patient Health Record ---
Author Organization [facility] Address [address] [place] [address] Care Team Providers Care Clutch Inspector Name Role Phone Yrn MCGOWAN, Alf Unavailable [phone] Reason For Referral No Information Medications Medication SIG (Take, Route, Frequency, Duration) Notes Start Date End Date Status Eliquis 5 MG Tablet as directed Orally 08/02/2019 Active Aspirin 81 MG Tablet Oral 1 every day 08/25/2017 Active Atorvastatin Calcium 20 MG Tablet Oral; Duration: 30 Active Multi Vitamin - Tablet 1 tablet Orally O nce a day; Duration: 30 day(s) 08/02/2019 Active Testosterone Cypionate & Prop 08/02/2019 Active Spironolactone 50 MG Tablet Oral; Duration: 90 Active amLODIPine Besylate 10 MG Tablet Oral; Duration: 90 Active Nulytely with Flavor Packs 420 GM Solution Reconstituted as directed Orally; Duration: 1 day Active [place] 3-6-9 - Capsule as directed Orally Active Alfuzosin HCl ER 10 MG Tablet Extended Release 24 Hour Oral; Duration: 90 Active Omeprazole 40 MG Capsule Delayed Release Oral; Duration: 30 Active Finasteride 5 MG Tablet Oral; Duration: 30 Active Montelukast Sodium 10 MG Tablet Oral; Duration: 90 Active Lisinopril 20 MG Tablet Oral; Duration: 90 Active ICaps Areds 2 08/02/2019 Activ e Furosemide 40 MG Tablet Oral; Duration: 60 Active Social History Tobacco Use: Social History Observation Description Date Details (start date - stop date) Former Smoker NA - NA Social History Drugs/Alcohol(Archived) Social Info Question Answer Notes Alcohol Screen (Audit-C) Did you have a drink containing alcohol in the past year? No Points 0 Interpretation Negative Drugs Have you used drugs other than those for medical reasons in the past 12 months? No Caffeine Intake: none Tobacco Use: Social Info Question Answer Notes Tobacco Use/Smoking (Archived) Are you a? former smo ker How long has it been since you last smoked? > 10 years Additional Findings: Tobacco Non-User Current no n-smoker Problems Problem Type SNOMED Code ICD Code Onset Dates Problem Status W/U Status Risk Notes Problem Valdes's esophagus (802900615) Valdes's esophagus (530.85) Active confirmed [id number] 0- Problem Diarrhea (00796908) Diarrhea (787.91) 3 Active confirmed Arnie-09048 0- Problem Colon cancer screening (031259909) Colon cancer screening (V76.51) 3 Active confirmed Arnie-44429 0- Problem Altered bowel habits (66586434) ALTERED BOWEL HABITS (787.99) 3 Active confirmed Arnie-58042 0- Problem Oth symptoms and signs involving the dgstv sys and abdomen (R19.8) 1 Active confirmed Arnie-73403 0- Plan Of Treatment No Information Insurance Providers Payer Name Payer Address Payer Phone Subscriber Number Group Number Insured Name Patient Relationship to Insured Coverage Start Date Coverage End Date [place] B [place] [employer] [address] [address] [place] [address] [id number] Juan M Burgess Self - patient is the insured 2 [place] SUPPLEMEN T [address] [place], [place] [id number] Juan M Burgess Self - patient is the insured Medical (General) History Medical History History ICD Code Barretts esophagus hypertension pneumonia Arthritis hemorrhoids nephrolithiasis Atrial fibrillation Surgical History Surgery Date(Month/Year) EGD per PT 03/2019 Colonoscopy 09/2017 EGD 08/2015 left knee arthroscopy 2007 right knee replacement 2007 rotator cuff tear repair 2002 cholecystectomy 1983 hemorrhoidectomy 1976
--- OUTSIDE RECORDS SUMMARY | 2025-04-21 10:28 | XMS_ITS | Encounter Summary ---
Author Organization [facility] Address [address] [facility], [address] [place] [address] Care Team Providers Care Dog License Officer Supervisor Name Role Phone Sarahi Fitzgerald APRN Primary Care Provider Encounter Details Date Type Department Care Team (Late st Contact Info) Description 02/16/2025 [facility] [address] [place] [address] Sarahi Fitzgerald APRN [address] [place] [address] Social History Tobacco Use Types Packs/Day Years Used Date Smoking Tobacco: Former Cigarettes 1 6 1 960 - 0560 Smokeless Tobacco: Former Chew Alcohol Use Standard Drinks/Week Comments No 0 (1 standard drink = 0.6 oz pur e alcohol) [facility] Utilities Answer Date Recorded In the past 12 months has [employer], gas, oil, or water company threatened to [...] place to sleep or slept in a jail (including now)? No 11/13/2022 Housing Stability Vital Sign Answer Michael e Recorded In the last 12 months, was t here a time when you were not able to pay the mortgage or rent on time? No 01/24/2025 In the past 12 months, how m any times have you moved where you were living? 0 01/24/2025 At any time in the past 12 m [facility], were you homeless or living in a jail (including now)? No 01/24/2025 Food Insecurity Answer [...] documented as of this encounter Care Teams Dog License Officer Supervisor Relationship Specialty Start Date End Date Sarahi Fitzgerald APRN [address] [place] [address] PCP - General Family Nurse Practitioner 01/04/16 documented as of this encounter
--- OUTSIDE RECORDS SUMMARY | 2025-04-21 10:28 | XMS_ITS | Encounter Summary ---
Author Organization [facility] Address [address] [facility], [address] [place] [address] Care Team Providers Care Computer Installer Name Role Phone Sarahi Fitzgerald APRN Primary Care Provider [phone] Encounter Details Date Type Department Care Team (Late st Contact Info) Description 03/14/2025 Orders Only [facility] [address] [place] [id number] Sarahi Fitzgerald APRN [address] [place] [address] Atrial fibrillation, unspecified type (HCC); Essential hypertension; Vitamin D deficiency Social History Tobacco Use Types Packs/Day Years Used Date Smoking Tobacco: Former Cigarettes 1 6 1 960 - 1965 Smokeless Tobacco: Former Chew Alcohol Use Standard Drinks/Week Comments No 0 (1 standard drink = 0.6 oz pur e alcohol) [facility] Utilities Answer Date Recorded In the past 12 months has [employer], gas, oil, or water [employer] threatened to shut off services in your [...] place to sleep or slept in a fdc (including now)? No 11/13/2022 Housing Stability Vital Sign Answer Michael e Recorded In the last 12 months, was t here a time when you were not able to pay the mortgage or rent on time? No 01/24/2025 In the past 12 months, how m any times have you moved where you were living? 0 01/24/2025 At any time in the past 12 m [facility], were you homeless or living in a fdc (including now)? No 01/24/2025 Food Insecurity Answer [...] documented as of this encounter Visit Diagnoses Diagnosis Atrial fibrillation, unspecified type (HCC) Essential hypertension Unspecified essential hypertension Vitamin D deficiency Unspecified vitamin D deficiency documented in this encounter Additional Health Concerns Assessment Noted Time A fall risk assessment has been complete d for the patient 01/24/2025 11:47 AM EDT documented as of this encounter Care Teams Computer Installer Relationship Specialty Start Date End Date Sarahi Fitzgerald APRN [address] [place] [address] PCP - General Family Nurse Practitioner 01/04/16 documented as of this encounter
--- OUTSIDE RECORDS SUMMARY | 2025-04-21 10:28 | XMS_ITS | Encounter Summary ---
Author Organization [facility] Address [address] [facility], [address] [place] [address] Care Team Providers Care Glue Line Operator Name Role Phone Sarahi Fitzgerald APRN Primary Care Provider [phone] Encounter Details Date Type Department Care Team (Late st Contact Info) Description 03/24/2025 Abstract [facility] [address] [place] [address] Sarahi Fitzgerald APRN [address] [place] [address] Social History Tobacco Use Types Packs/Day Years Used Date Smoking Tobacco: Former Cigarettes 1 6 1 960 - 6760 Smokeless Tobacco: Former Chew Alcohol Use Standard Drinks/Week Comments No 0 (1 standard drink = 0.6 oz pur e alcohol) [facility] Utilities Answer Date Recorded In the past 12 months has [employer], gas, oil, or water company threatened to [...] place to sleep or slept in a senior care (including now)? No 11/13/2022 Housing Stability Vital Sign Answer Michael e Recorded In the last 12 months, was t here a time when you were not able to pay the mortgage or rent on time? No 01/24/2025 In the past 12 months, how m any times have you moved where you were living? 0 01/24/2025 At any time in the past 12 m [facility], were you homeless or living in a senior care (including now)? No 01/24/2025 Food Insecurity Answer [...] documented as of this encounter Care Teams Glue Line Operator Relationship Specialty Start Date End Date Sarahi Fitzgerald APRN [address] [place] [address] PCP - General Family Nurse Practitioner 01/04/16 documented as of this encounter
--- OUTSIDE RECORDS SUMMARY | 2025-04-21 10:28 | XMS_ITS | Encounter Summary ---
Author Organization [facility] Address [address] [place] [address] Care Team Providers Care Building Engineer Name Role Phone Sarahi Fitzgerald ANALYSIS ENGINEER Primary Care Provider [phone] Encounter Details Date Type Department Care Team (Late st Contact Info) Description 03/02/2025 Prep for Surgery [facility] ORDERS ONLY [address] [place] [address] Lety Nath APRN [address] [facility] [address] [place], [place] [id number] Paroxysmal atrial fibrillation (Primary Dx); Falls frequently Social History Tobacco Use Types [...] [facility] [address] [facility] [address] [place] [address] Yandel Torres MD [address] [facility] [address] [place] [address] 06/23/2025 1:00 PM EST Appointment [facility] MRI [address] [place] [address] 09/23/2025 10:00 AM EST Telemedicine [facility] CARDIOLOGY [address] [place] [address] Nawaf Cormier, ANALYSIS ENGINEER [address] [place] [address] documented as of this encounter Results * (ABNORMAL) Basic Metabolic Panel (03/17/2025 1:31 PM EDT) Glucose 114(H) 65 - 99 mg/dL 03/17/2025 2:08 PM EDT [facility] BUN 19.2 8.0 - 23.0 mg/dL 03/17/2025 2:08 PM EDT [facility] Creatinine 1.29(H) 0.76 - 1.27 mg/dL 03/17/2025 2:08 PM EDT [facility] Sodium 138 136 - 145 mmol/L 03/17/2025 2:08 PM EDT [facility] Potassium 4.0 3.5 - 5.2 mmol/L 03/17/2025 2:08 PM EDT [facility] Chloride 108(H) 98 - 107 mmol/L 03/17/2025 2:08 PM EDT [facility] CO2 19.1(L) 22.0 - 29.0 mmol/L 03/17/2025 2:08 PM EDT [facility] Calcium 9.0 8.6 - 10.5 mg/dL 03/17/2025 2:08 PM EDT [facility] BUN/Creatinine Ratio 14.9 7.0 - 25.0 03/17/2025 2:08 PM EDT [facility] Anion Gap 10.9 5.0 - 15.0 mmol/L 03/17/2025 2:08 PM EDT [facility] eGFR 54.3(L) >60.0 mL/min/1.7 3 03/17/2025 2:08 PM EDT [facility] Blood Venipuncture / Unknown 03/17/2025 1:31 PM EDT 03/17/2025 1:45 PM EDT Narrative [facility] - 03/17/2025 2:08 PM EDT GFR [...] APRN LAB BLOOD ORDERABLES Final Re sult [facility]
[address] [place] [address], * CBC (No Diff) (03/17/2025 1:31 PM EDT) WBC 7.80 3.40 - 10.80 10*3/mm3 03/17/2025 1:53 PM EDT [facility] RBC 4.54 4.14 - 5.80 10*6/mm3 03/17/2025 1:53 PM EDT [facility] Hemoglobin 13.0 13.0 - 17.7 g/dL 03/17/2025 1:53 PM EDT [facility] Hematocrit 40.6 37.5 - 51.0 % 03/17/2025 1:53 PM EDT [facility] MCV 89.4 79.0 - 97.0 fL 03/17/2025 1:53 PM EDT [facility] MCH 28.6 26.6 - 33.0 pg 03/17/2025 1:53 PM EDT [facility] MCHC 32.0 31.5 - 35.7 g/dL 03/17/2025 1:53 PM EDT [facility] RDW 14.8 12.3 - 15.4 % 03/17/2025 1:53 PM EDT [facility] RDW-SD 47.9 37.0 - 54.0 fl 03/17/2025 1:53 PM EDT [facility] MPV 9.0 6.0 - 12.0 fL 03/17/2025 1:53 PM EDT [facility] Platelets 187 140 - 450 10*3/mm3 03/17/2025 1:53 PM EDT [facility] Blood Venipuncture / Unknown 03/17/2025 1:31 PM EDT 03/17/2025 1:45 PM EDT us Lety Nath APRN LAB BLOOD ORDERABLES Final Re sult [facility]
[address] [place] [address], documented in this encounter Visit Diagnoses Diagnosis Paroxysmal atrial fibrillation- Primary Atrial fibrillation Falls frequently Personal history of fall documented in this encounter Care Teams Building Engineer Relationship Specialty Start Date End Date Sarahi Fitzgerald APRN [address] [place] [address] PCP - General Family Medicine 01/13/25 documented as of this encounter
--- OUTSIDE RECORDS SUMMARY | 2025-04-21 10:28 | XMS_ITS | Encounter Summary ---
Author Organization [facility] Address [address] [facility], [address] [place] [address] Care Team Providers Care Soda Maker Name Role Phone Sarahi Fitzgerald APRN Primary Care Provider [phone] Encounter Details Date Type Department Care Team (Late st Contact Info) Description 03/24/2025 Abstract [facility] [address] [place] [address] Sarahi Fitzgerald APRN [address] [place] [address] Social History Tobacco Use Types Packs/Day Years Used Date Smoking Tobacco: Former Cigarettes 1 6 1 960 - 0799 Smokeless Tobacco: Former Chew Alcohol Use Standard Drinks/Week Comments No 0 (1 standard drink = 0.6 oz pur e alcohol) [facility] Utilities Answer Date Recorded In the past 12 months has [employer], gas, oil, or water company threatened to [...] place to sleep or slept in a custodial (including now)? No 11/13/2022 Housing Stability Vital Sign Answer Michael e Recorded In the last 12 months, was t here a time when you were not able to pay the mortgage or rent on time? No 01/24/2025 In the past 12 months, how m any times have you moved where you were living? 0 01/24/2025 At any time in the past 12 m [facility], were you homeless or living in a custodial (including now)? No 01/24/2025 Food Insecurity Answer [...] documented as of this encounter Care Teams Soda Maker Relationship Specialty Start Date End Date Sarahi Fitzgerald APRN [address] [place] [address] PCP - General Family Nurse Practitioner 01/04/16 documented as of this encounter
--- OUTSIDE RECORDS SUMMARY | 2025-04-21 10:28 | XMS_ITS | Encounter Summary ---
Author Organization [facility] Address [address], [address] [place] [address] Care Team Providers Care Social Media Marketing Manager Name Role Phone Sarahi Fitzgerald APRN Primary Care Provider [phone] Encounter Details Date Type Department Care Team (Late st Contact Info) Description 02/16/2025 Orders Only [place] [id number] ProviderDorota MD Social History Tobacco Use Types Packs/Day Years Used Date Smoking Tobacco: Former Cigarettes 1 6 1 960 - 1966 Smokeless Tobacco: Former Chew Alcohol Use Standard Drinks/Week Comments No 0 (1 standard drink = 0.6 oz pur e alcohol) [facility] Utilities Answer Date Recorded In the past 12 months has [employer], gas, oil, or water [employer] threatened to shut off services in your [...] place to sleep or slept in a longterm (including now)? No 11/13/2022 Housing Stability Vital Sign Answer Michael e Recorded In the last 12 months, was t here a time when you were not able to pay the mortgage or rent on time? No 01/24/2025 In the past 12 months, how m any times have you moved where you were living? 0 01/24/2025 At any time in the past 12 m [facility], were you homeless or living in a longterm (including now)? No 01/24/2025 Food Insecurity Answer [...] Kimball MA documented as of this encounter Procedures Procedure Name Priority Date/Time Associated Diagnosis Comments CT HEAD (14343) Routine 01/19/2025 9:02 AM EDT documented in this encounter Results * Ct head (32941) (01/19/2025 9:02 AM EDT) Anatomical Region Laterality Modality Other us Historical Provider MD [facility] Final Result documented in this encounter Visit Diagnoses Not on filedocumented in this encounter Additional Health Concerns Assessment Noted Time A fall risk assessment has been complete d for the patient 01/24/2025 11:47 AM EDT documented as of this encounter Care Teams Social Media Marketing Manager Relationship Specialty Start Date End Date Sarahi Fitzgerald APRN [address] [place] [address] PCP - General Family Nurse Practitioner 01/04/16 documented as of this encounter
--- OUTSIDE RECORDS SUMMARY | 2025-04-21 10:28 | XMS_ITS | Patient Health Record ---
Author Organization [facility]re[facility] Billing Info Address [address] [place] [address] Care Team Providers Care Hardboard Press Operator Name Role Phone MILTON CHAMPAGNE Unavailable [phone] Allergies Allergen (clinical drug ingredient) Drug/Non Drug Allergy documented on EMR Reaction Allergy Type Onset Date Status codeine Codeine rash/hives Drug Allergy Active Reason For Referral No Information Medications Medication SIG (Take, Route, Frequency, Duration) Notes Start Date End Date Status Amoxicillin-Pot Clavulanate 875-125 MG 1 tablet Orally every 12 hrs for 10 days 07/17/2023 Active Fexofenadine HCl 180 MG 1 tablet Swallow whole with water; do not take with fruit juices. Orally Once a day Active Vitamin D2 50 MCG (1999) 1 tablet Ora lly Once a day for 30 day(s) Active Metoprolol Tartrate 25 MG 1 tablet with food Orally Once a day Active Adult Aspirin EC Low Strength 325 MG 1 tablet Orally Once a day for 30 day(s) Active Alfuzosin HCl ER 10 MG 1 tablet immediat adam after the same meal Orally Once a day for 30 day(s) Active Finasteride 5 MG 1 tablet Orally Once a day for 30 day(s) Active PreserVision AREDS 2 - as directed Orally Active Losartan Potassium-HCTZ 100-12.5 MG 1 tablet Orally Once a day Active Furosemide 40 MG 1 tablet Orally Once a day for 30 day(s) Active Amlodipine Besylate 10 mg 1 tablet Orall y Once a day for 90 days Active Omeprazole 40 mg 1 capsule Orally twi ce a day for 90 days Active Levocetirizine Dihydrochloride 5 MG 1 tablet in the evening Orally Once a day for 30 day(s) 10/10/2021 Active Eliquis 5 MG 1 tab(s) Orally BID Active Escitalopram Oxalate 10 MG 1 tablet Oral ly Once a day for 30 day(s) Active Immunizations Vaccine Route Administration Date Status Comme nts zINFLUENZA - SPLIT (3YR+) No Preservative IM Intramuscular 09/03/2012 Administered FLU (Past vaccine of unknown type) Unknown 04/18/2013 Administered given @ [facility] zZOSTER (Past vaccine of unknown type)121 0 05/17/2014 Pending given @ [facility] zINFLUENZA TRI-DONAVAN (FLUZONE), 3 YRS +, WITH PRES - MEDICARE IM Intramuscular 09/09/2014 Administered Problems Problem Type SNOMED Code ICD Code Onset Dates Problem Status W/U Status Risk Notes Problem 231960736 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) Active confirmed Problem 58158737 Essential hypertension (I10) Active confirmed Problem 13065384 Left hip pain (M25.552) Active confirmed Problem 91081557 Blood glucose elevated (R73.9) Active confirmed Problem 944912299 BMI 34.0-34.9,ad ult (Z68.34) Active confirmed Problem 17322108 Seborrheic dermatitis (L21.9) Active confirmed Problem 694719563 Chronic dental infection (K04.7) Active confirmed Problem 22177443 Hyperlipidemia, unspecified hyperlipidemia type (E78.5) Active confirmed Problem 247478131 Osteopenia, unspecified location (M85.80) Active confirmed Problem 140799516 Gastroesophageal reflux disease, unspecified whether esophagitis present (K21.9) Active confirmed Encounters Encounter Location Date Provider Diagnosis [id number] [facility] [address] [place], [place] [id number] 12/08/2024 MILTON CHAMPAGNE [id number] [facility] [address] [place], [place] [id number] 03/07/2025 MILTON CHAMPAGNE [id number] [facility] [address] [place], [place] [id number] 03/07/2025 MILTON CHAMPAGNE Plan Of Treatment Pending Test Test Name Order Date BLOOD, OCCULT, BY PEROXIDASE ACTIVITY, QUALITATIVE; FECES, 1-3 SIMULTANEOUS DETERMINATIONS (42850) IH 10/21/2013 US-CAROTID ARTERIES, BILATERAL, DOPPLER STUDY (74786) 10/25/2014 US- ECHOCARDIOGRAM, TRANSTHORACIC, 2D (7 5889) 10/25/2014 COMPREHENSIVE METABOLIC PANEL(Q-51031) 0 10/10/2021 COMPREHENSIVE METABOLIC PANEL(Q-81453) 1 09/17/2022 TSH W/REFLEX TO FT4 ([id number]) 07/17/2023 HEMOGLOBIN A1c (Q-496) 07/17/2023 HEMOGLOBIN A1c (Q-496) 10/10/2021 CBC (INCLUDES DIFF/PLT)(Q-6399) 10/11/19 22 CBC (INCLUDES DIFF/PLT)(Q-6399) 07/17/20 23 LIPID PANEL, STANDARD (Q-7600) 3 LIPID PANEL, STANDARD (Q-7600) 2 Future Test Test Name Order Date BLOOD, OCCULT, BY PEROXIDASE ACTIVITY, QUALITATIVE; FECES, 1-3 SIMULTANEOUS DETERMINATIONS (41263) 11/01/2012 Insurance Providers Payer Name Payer Address Payer Phone Subscriber Number Group Number Insured Name Patient Relationship to Insured Coverage Start Date Coverage End Date [employer] [facility] [address] [address] [facility] [place] [place] [place] [id number] AdityaJuan M Self - patient is the insured Medical (General) History Medical History History ICD Code hypertension hemorroids - 1964 gall bladder - 1983 glaucoma-sees Dr. 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 Marisol dover Flu vaccine 04/2021 COVID vaccine Pfizer completed booster 0 04/28/2021 Surgical History Surgery Date(Month/Year) Pace maker 12/27/2022 Left total knee replacement 06/2008 colonoscopy 05/2008 gall bladder 1984 Hospitalization History Reason Date(Month/Year) COVID 06/2020
--- OUTSIDE RECORDS SUMMARY | 2025-04-21 10:28 | XMS_ITS | Encounter Summary ---
Author Organization [facility] Address [address] [place] [address] Care Team Providers Care Measuring Clerk Name Role Phone LiaSarahi Teresita ZHANE Primary Care Provider [phone] Encounter Details Date Type Department Care Team (Latest Contact Info) Description 03/23/2025 Travel Social History Tobacco Use Types Packs/Day [...] or training? Not on file Preferred Language Macedonian 03/17/2025 Sex and Gender Information Value Date [...] 8:30 AM EDT Farrah Brito RN * [place] Suicide Severity Rating Scale (Screener/Recent Self-Report) Question Answer Date of Assessment Author 6. Suicidal Behavior (Lifetime) No 8:30 AM EDT Farrah Brito RN documented as of this encounter Plan of Treatment Upcoming Encounters Date Type Department Care Team (Late st Contact Info) Description 06/02/2025 11:00 AM EDT Office Visit [facility] [address] [facility] [address] [place] [address] Yandel Torres MD [address] [facility] [address] [place] [address] 06/23/2025 1:00 PM EST Appointment [facility] [address] [place] [id number] 09/23/2025 10:00 AM EST Telemedicine [facility] [address] [facility] [address] [place] [id number] Nawaf Cormier APRN [address] [facility] [address] [place] [address] documented as of this encounter Visit Diagnoses Not on filedocumented in this encounter Care Teams Measuring Clerk Relationship Specialty Start Date End Date Sarahi Fitzgerald APRN [address] [place] [address] PCP - General Family Medicine 01/13/25 documented as of this encounter
--- OUTSIDE RECORDS SUMMARY | 2025-04-21 10:28 | XMS_ITS | Encounter Summary ---
Author Organization [facility] Address [address], [address] [place] [address] Care Team Providers Care Rn Patient Care Name Role Phone Sarahi Fitzgerald APRN Primary Care Provider [phone] Encounter Details Date Type Department Care Team (Late st Contact Info) Description 04/12/2025 Abstract [facility] [address] [place] [address] Sarahi Fitzgerald APRN [address] [place] [address] Social History Tobacco Use Types Packs/Day Years Used Date Smoking Tobacco: Former Cigarettes 1 6 1 960 - 8974 Smokeless Tobacco: Former Chew Alcohol Use Standard Drinks/Week Comments No 0 (1 standard drink = 0.6 oz pur e alcohol) [facility] Utilities Answer Date Recorded In the past 12 months has [employer], gas, oil, or water company threatened to [...] place to sleep or slept in a alf (including now)? No 11/13/2022 Housing Stability Vital [...] were you homeless or living in a alf (including now)? No 01/24/2025 Food Insecurity Answer [...] documented as of this encounter Care Teams Rn Patient Care Relationship Specialty Start Date End Date Sarahi Fitzgerald APRN [address] [place] [address] PCP - General Family Nurse Practitioner 01/04/16 documented as of this encounter
--- OUTSIDE RECORDS SUMMARY | 2025-04-21 10:28 | XMS_ITS | Encounter Summary ---
Author Organization [facility] Address [address], [address] [place] [address] Care Team Providers Care Director Clinical Data Name Role Phone Sarahi Fitzgerald APRN Primary Care Provider [phone] Encounter Details Date Type Department Care Team (Late st Contact Info) Description 03/02/2025 Abstract [facility] [address] [place] [address] Sarahi Fitzgerald APRN [address] [place] [address] Social History Tobacco Use Types Packs/Day Years Used Date Smoking Tobacco: Former Cigarettes 1 6 1 960 - 2378 Smokeless Tobacco: Former Chew Alcohol Use Standard Drinks/Week Comments No 0 (1 standard drink = 0.6 oz pur e alcohol) [facility] Utilities Answer Date Recorded In the past 12 months has [employer], gas, oil, or water company threatened to [...] place to sleep or slept in a assisted (including now)? No 11/13/2022 Housing Stability Vital Sign Answer Michael e Recorded In the last 12 months, was t here a time when you were not able to pay the mortgage or rent on time? No 01/24/2025 In the past 12 months, how m any times have you moved where you were living? 0 01/24/2025 At any time in the past 12 m [facility], were you homeless or living in a assisted (including now)? No 01/24/2025 Food Insecurity Answer [...] documented as of this encounter Care Teams Director Clinical Data Relationship Specialty Start Date End Date Sarahi Fitzgerald APRN [address] [place] [address] PCP - General Family Nurse Practitioner 01/04/16 documented as of this encounter
[2025-04-21] MEDS: TET/DIPHTH/PERT-ADULT 0.5ML SYRINGE 0.5 ML IM (10:30)
[2025-04-21] MEDS: OXYCODONE 5MG IMMEDIATE RELEASE TABLET 5 MG PO (10:30)
--- NOTE | 2025-04-21 10:31 | PC.NURSE ---
MD does not want trauma alert called.
--- NOTE | 2025-04-21 10:35 | HMH.EDGENADL ---
Discharge Plan Disposition Patient Disposition: Xfer Short-Term Hosp Prescriptions Prescriptions: No Action ergocalciferol (vitamin D2) 50,000 unit capsule 50,000 unit PO WEEKLY Eliquis 5 mg tablet 5 mg PO DAILY 0RF atorvastatin 40 mg tablet 40 mg PO DAILY Qty: 90 3RF finasteride 5 mg tablet 5 mg PO DAILY Qty: 90 3RF spironolactone 25 mg tablet 25 mg PO DAILY losartan 100 mg tablet 100 mg PO DAILY Qty: 90 3RF amlodipine 10 mg tablet 10 mg PO DAILY Qty: 90 3RF alfuzosin 10 mg tablet extended release 24 hr 10 mg PO DAILY Qty: 90 3RF apixaban 5 mg tablet 5 mg PO BID Qty: 180 3RF eplerenone 25 mg tablet 25 mg PO DAILY Patient Comments: TAKE 1 TABLET BY MOUTH ONCE DAILY levocetirizine 5 mg tablet 5 mg PO HS Patient Comments: TAKE 1 TABLET BY MOUTH NIGHTLY pantoprazole [Protonix] 40 mg tablet,delayed release (DR/EC) 40 mg PO QAM Patient Comments: TAKE 1 TABLET BY MOUTH ONCE DAILY IN THE MORNING BEFORE BREAKFAST furosemide 20 mg tablet See Rx Instructions .ROUTE .COMPLEX Qty: 90 3RF Dose Instruction: Take 1 tablet by mouth once daily Rx Instructions: Take 1 tablet by mouth once daily escitalopram oxalate 10 MG tablet 10 mg PO DAILY aspirin 81 mg Tablet,Delayed Release (Dr/Ec) 81 mg PO DAILY omeprazole 40 mg capsule,delayed release(DR/EC) 40 mg PO DAILY Referrals Follow up/Referrals: Sarahi Fitzgerald MD [Primary Care Provider, Medical] - See instructions Clinical Impressions Clinical Impression: Forearm laceration involving tendon, Bleeding Stand Alone Forms Stand Alone Forms: Transfer Record - ED Print Language Print Language: Taiwanese Discharge ED Provider: Lauro Gandhi General Adult HPI General Chief complaint: Extremity Injury, Upper Stated complaint: AO-0900- laceration to R Forearm Time Seen by Provider: 04/21/25 10:27 Mode of Arrival: Ambulatory Source of Information: Patient Description of Symptoms (Recalled from ER Triage Doc. by RN): pt fell and was carrying a piece of metal. it sliced his RFA with tendon involvement. on plavix History of Present Illness HPI narrative: Patient is a 84-year-old male right-handed who recently had Watchman device on dual antiplatelet therapy presents to the emergency department for evaluation of traumatic injury sustained to his right forearm. Patient sliced his right forearm vertically on a piece of metal siding on his distal right forearm extending into his palm. He tried to apply pressure prior to arrival but was bleeding through the dressing. Tdap not up-to-date no other acute complaints at this time no other trauma. Please note that above description of symptoms, in this electronic medical record under categorization of recalled from ER triage doctor by RN are reflective of an initial nursing assessment, however, is not reflective of my full history and physical exam that was personally taken and clarified. Consequentially, this preceding description of symptoms, which may include the patient's categorized chief complaint in the EMR, do not reflect my personal clinical impression, and the ultimate description of history of present illness and patient stated complaints should be deferred to this section of the note. Unless stated otherwise or congruent with this section of the note, additional signs, symptoms, or incongruence should be interpreted as inaccurate with my clinical impression. Related Data Home Medications ?Medication ?Instructions ?Recorded ?Confirmed ergocalciferol (vitamin D2) 1,250 50,000 unit PO WEEKLY Supplement 04/13/18 03/30/25 mcg (50,000 unit) capsule escitalopram oxalate 10 mg tablet 10 mg PO DAILY Depression 06/04/20 03/30/25 aspirin 81 mg tablet,delayed 81 mg PO DAILY HEART HEALTH 12/27/22 03/30/25 release omeprazole 40 mg capsule,delayed 40 mg PO DAILY Acid reflux 12/27/22 03/30/25 release eplerenone 25 mg tablet 25 mg PO DAILY 03/24/24 03/30/25 levocetirizine 5 mg tablet 5 mg PO HS 03/24/24 03/30/25 pantoprazole 40 mg tablet,delayed 40 mg PO QAM 03/24/24 03/30/25 release (Protonix) spironolactone 25 mg tablet 25 mg PO DAILY 05/13/24 03/30/25 Previous Rx's ?Medication ?Instructions ?Recorded alfuzosin 10 mg tablet,extended 10 mg PO DAILY URINARY RETENTION 05/13/24 release 24 hr #90 tabs amlodipine 10 mg tablet 10 mg PO DAILY Hypertension #90 05/13/24 tabs apixaban 5 mg tablet 5 mg PO BID Blood thinner-AFIB 05/13/24 #180 tabs atorvastatin 40 mg tablet 40 mg PO DAILY Cholesterol #90 tabs 05/13/24 finasteride 5 mg tablet 5 mg PO DAILY PROSTATE #90 tabs 05/13/24 losartan 100 mg tablet 100 mg PO DAILY #90 tabs 05/13/24 furosemide 20 mg tablet See Rx Instructions .Route 12/20/24 .COMPLEX #90 tabs Allergies Allergy/AdvReac Type Severity Reaction Status Date / Time No Known Allergies Allergy Verified 03/30/25 14:40 [facility] Disclaimer: The information contained in this section may have been updated after the patient was seen, as this information can be updated by other users. Medical History Mass of cavity of nose Coughing up blood Adequate anticoagulation on anticoagulant therapy Angina, class III Angina, class IV Atrial flutter Bradycardia Coronary artery disease COVID-19 Dizziness Fatigue Former smoker Hyperlipidemia Hypertension Left lower lobe pneumonia Problem with Jackson catheter Retention of urine Shortness of breath Atypical angina Dyspnea Abnormal findings on diagnostic imaging of heart and coronary circulation Elevated serum creatinine Cardiac pacemaker in situ Symptomatic bradycardia Sick sinus syndrome Sinus bradycardia First degree atrioventricular block by electrocardiogram Second degree AV block, Mobitz type II Second degree AV block, Mobitz type I Allergic rhinitis, unspecified H/O restrictive lung disease History of cardioversion History of 2019 novel coronavirus disease (COVID-19) Dyspnea on exertion Atrial fibrillation HLD (hyperlipidemia) CAD (coronary artery disease) Dizziness Fatigue Angina, class IV Atrial flutter Bradycardia Former smoker SOB (shortness of breath) HTN (hypertension) Surgical History History of hemorrhoidectomy History of rotator cuff surgery H/O arthroscopy of knee Family History Other Heart attack Social History Smoking Status: Never smoker second hand exposure: No alcohol intake: never substance use type: denies use current occupational status: retired Travel in the last 8 weeks?: None household members: spouse housing: house caffeine: No Have you lived/traveled outside US in past 30 days?: No Contact w/someone who lives/traveled outside US past 30 days?: No Exposure to someone with infectious disease in past 14 days?: No Do you have a fever (greater than 100.4 F or 38 C)?: No Have you tested positive for COVID-19?: No Exposed to someone with COVID-19 in past 14 days?: No Do you have a sore throat?: No Do you have a cough?: No Do you have any weakness?: No Do you have any diarrhea?: No Are you experiencing any unusual bleeding?: No Do you have any muscle aches/pain?: No Do you have any abdominal pain?: No Are you experiencing loss of taste or smell?: No Other Medical History Have you received the Flu Vaccine for this season: No Have you received the Pneumonia Vaccine: Yes ROS Obtained: Yes Systems reviewed as appropriate & no additional complaints except as documented Physical Exam General General appearance: alert Comment: Appearing uncomfortable in bed Head Head exam: atraumatic and normocephalic Eye Eye exam: Present PERRL and EOMI ENT ENT exam: Present mucous membranes moist Neck Neck exam: Present normal inspection Chest Chest inspection: Present normal inspection and symmetric chest wall rise Respiratory Respiratory exam: Present normal lung sounds bilaterally; Absent respiratory distress Cardiovascular Cardiovascular exam: Present regular rate and normal rhythm Extremities Exam Extremities exam: Present other (There is a 6 inch volar longitudinal deep laceration with exposed muscle belly and tendon of the right volar forearm extending up into the base of the palm between the thenar and hypothenar eminence. Range of motion of fingers as well as capillary refill is preserved distally. ); Absent normal inspection (Brisk nonpulsatile bleeding present) Neurological Exam Neurological exam: Present alert Psychiatric Psychiatric exam: Present normal affect Skin Skin exam: Present warm and dry Medical Decision Making Medical Records Screening: Per USPSTF and CDC recommendations, given the prevalence of disease in our region, it is our hospital?s policy to screen for HIV and viral Hepatitis for all patients aged 18 and over and those with ongoing risk factors. [place] Inquiry Pt receiving controlled substance: No Vital Signs: 04/21/25 10:26 Temperature 97.9 F Temperature Source Oral Pulse Rate [Left] 86 Respiratory Rate 20 Blood Pressure [Left Arm] 118/66 Blood Pressure Mean [Left Arm] 83 02 Sat by Pulse Oximetry 98 Oxygen Delivery Method Room Air Orders (Tests/Meds): ED MEDICATIONS Discontinued Medications Generic Name Dose Route Start Last Admin Trade Name Freq PRN Reason Stop Dose Admin Oxycodone HCl 5 mg 04/21/25 10:23 04/21/25 10:30 Oxycodone 5mg Immediate Release Tablet PO 04/21/25 10:24 5 mg ONCE ONE Administration Tetanus/Reduced Diphtheria/Acell Pertussis 0.5 ml 04/21/25 10:23 04/21/25 10:30 Tet/Diphth/Pert-Adult 0.5ml Syringe IM 04/21/25 10:24 0.5 ml .ONCE ONE Administration Medical Decision Narrative: In summary patient is a 84-year-old male with past medical history described above presents emergency department for evaluation of traumatic laceration to his right volar distal forearm. Patient has brisk venous bleeding upon my inspection upon arrival. Ultimately blood pressure cuff was inflated and inverted pressure dressing was placed with hemostasis, distal oozing upon repeat evaluation and the dressing was further bolstered with large hemostasis achieved. Tdap will be updated. 2 g of Ancef IM administered. The case was immediately discussed with [facility] as patient requires complex repair and washout as well as follow-up by hand. They graciously except the patient for continued evaluation at this time patient will go to [place] taken by EMS. Procedure: Procedure performed was hemostasis management. Procedure performed by Lauro Gandhi. Manual blood pressure cuff was applied over the proximal forearm and was inflated systolic greater than 200, brisk venous bleeding slowed to an ooze. Using sequential application of gauze and inverted pressure dressing was placed over the gaping wound, hemostasis achieved. Patient tolerated the procedure well there were no immediate complications. Critical Care Critical Care Time Critical Care Time: Yes Attestation: On 04/21/25, the high probability of a clinically significant, sudden or life threatening deterioration of the following system(s) required my full and direct attention, intervention and personal management. The time I documented below is in addition to time spent performing reported procedures but includes the following listed in this critical care notation. Total Time Total Critical Care Time: 15
--- NOTE | 2025-04-21 10:39 | PC.NURSE ---
originally told EMS staff that pt would be transported ALS due to MD being at bedside and transfer. MD notified staff that pt will be transferred BLS, call made to EMS about change.
--- NOTE | 2025-04-21 10:51 | PC.NURSE ---
report called to Jeanna @ [facility]. pt will be going to ems BLS
[2025-04-21 11:03] VITALS: BP 105/64; PULSE 84; RESP 20; TEMP 36.6; O2SAT 98
== END 2025-04-21 11:06 | disposition short-term general hospital (02) ==
PROVIDERS: Emergency Provider Emergency Medicine; PCP Nurse Practitioner Family
DX: S56.921A Laceration of unspecified muscles, fascia and tendons at forearm level, right arm, initial encounter (principal); R58 Hemorrhage, not elsewhere classified; W26.8XXA Contact with other sharp object(s), not elsewhere classified, initial encounter
CPT/HCPCS: 90471; 90715; 96372; 99285